=== PATIENT | female | born 2000 | race Caucasian/White ===

== ENCOUNTER → 2025-04-03 | Outpatient (CLI) | payer MEDICAID, SELFPAY ==
[2025-04-03 17:29] LABS: HIV Nonreactive (Nonreactive); Syphilis Antibodies Nonreactive (Nonreactive)
== END | disposition home or self-care (01) ==
PROVIDERS: PCP Nurse Practitioner Family; Visit Provider Nurse Practitioner Family
DX: Z11.3 Encounter for screening for infections with a predominantly sexual mode of transmission (principal); Z01.419 Encounter for gynecological examination (general) (routine) without abnormal findings
CPT/HCPCS: 36415; 86703; 86704; 86705; 86706; 86707; 86780; 86803; 87340; 87350; 88175; G0145

== ENCOUNTER 2025-06-09 17:40 | Observation (INO) | payer MEDICAID, SELFPAY ==
[2025-06-09] VITALS (7 sets, daily range): BP systolic 101–134; BP diastolic 55–81; PULSE 74–98; RESP 16–18; TEMP 36.4–36.6; O2SAT 99–100; BMI 25.2
--- NOTE | 2025-06-09 18:46 | EX.ED.DYSGE1 ---
HPI History of Present Illness Chief Complaint: Substance Abuse Narrative Narrative: Chief complaint and HPI: 25-year-old female with past medical history of polysubstance abuse and intermittent alcohol use presents requesting alcohol detox. Patient states that she lives at [address] and therefore needs to be cleaned from a substance abuse standpoint. She states that she had a buzz ball today and therefore tested positive for alcohol. Patient states that she is not a daily drinker. States she occasionally has a seltzer such as for her recent birthday. She states that she has to go through alcohol detox in order to keep her housing. She denies any nausea, vomiting. States she used to use methamphetamines but has not used it recently. Does admit to marijuana. Review of systems: See HPI Medications: As listed on the chart Allergies: As listed on the chart PFSH: Per chart Vital signs: As listed on the chart. Reviewed. Physical exam: Gen: A&O x3, NAD Head: Normocephalic, atraumatic Eyes: No sclera icterus, conjunctiva clear ENT: Moist mucous membranes CV: RRR, no murmurs Resp: Lungs CTA BL, no w/r/c GI: Abd soft, non-distended, non-tender, no r/r/g Musc: Full ROM, no deformity Skin: Warm, dry Neuro: Alert, oriented, grossly intact, sensation intact Psych: Cooperative, appropriate mood and affect [facility] Medical History (Updated 06/09/25 @ 18:04 by Lexie Felder) Anxiety Home Medications ?Medication ?Instructions ?Recorded ?Last Taken ?Type fluoxetine 10 mg capsule 10 mg PO DAILY 06/09/25 Unknown History hydroxyzine HCl 25 mg tablet 25 mg PO 4X/DAY PRN anxiety 06/09/25 Unknown History Allergy/AdvReac Type Severity Reaction Status Date / Time No Known Allergies Allergy Verified 06/09/25 17:42 Social History Smoking Status: Current every day smoker tobacco type: cigarettes and e-cigarettes EXAM Physical Exam Const Vital Signs: 06/09/25 17:42 06/09/25 18:40 06/09/25 19:00 Temperature 97.5 F L Temperature Source Temporal Pulse Rate 98 84 80 Respiratory Rate 18 16 16 Blood Pressure 134/81 H 132/81 H 115/69 Blood Pressure Mean 98 98 84 Pulse Ox 99 99 100 Oxygen Delivery Method Room Air Room Air 06/09/25 20:00 06/09/25 20:16 Temperature 97.5 F L Temperature Source Pulse Rate 94 94 Respiratory Rate 16 16 Blood Pressure 101/55 L 101/55 L Blood Pressure Mean 70 70 Pulse Ox 100 100 Oxygen Delivery Method Room Air MDM MDM MDM Narrative Medical decision making narrative: 25-year-old female with past medical history of polysubstance abuse and intermittent alcohol use presents requesting alcohol detox. Patient states that she lives at [address] and therefore needs to be cleaned from a substance abuse standpoint. She states that she had a buzz ball today and therefore tested positive for alcohol. States she needs alcohol detox in order to keep her housing. States she is not a daily drinker. Given that patient is not a daily drinker I question the need for alcohol detox. Will perform basic labs with NS bolus. Social work consulted. CBC with leukocytosis of 14.2. Patient has anemia with hemoglobin 11.5. CMP shows mild transaminitis with an AST of 40 and an ALT of 46. Urine negative. Urine drug screen positive for marijuana. Alcohol level unremarkable. Social work evaluated the patient. Social work states that the patient admitted to multiple days of drinking and therefore social work recommends detox. Patient was discussed with the hospitalist service who accepted admission. Impression: 1. Alcohol abuse 2. Requesting alcohol detox 3. History of polysubstance abuse Lab Data Labs: Laboratory Results - last 24 hr 06/09/25 06/09/25 18:10 18:43 WBC 14.2 H RBC 3.68 L Hgb 11.5 L Hct 34.0 L MCV 92.4 MCH 31.3 MCHC 33.8 RDW Std Deviation 39.4 RDW Coeff of Pamela 11.6 Plt Count 317 MPV 8.8 Immature Gran % (Auto) 0.600 Neut % (Auto) 73.2 H Lymph % (Auto) 20.0 Anson % (Auto) 4.7 Eos % (Auto) 1.1 Baso % (Auto) 0.4 Absolute Neuts (auto) 10.4 H Absolute Lymphs (auto) 2.84 Nucleated RBC % 0 Sodium 140 Potassium 3.5 Chloride 104 Carbon Dioxide 23.8 Anion Gap 12 BUN 17 Creatinine 0.83 Estim Creat Clear Calc 85.03 Est GFR (MDRD) Non-Af 99 BUN/Creatinine Ratio 20.0 Glucose 95 Calcium 9.5 Total Bilirubin 0.15 AST 40 H ALT 46 H Alkaline Phosphatase 79 Total Protein 6.7 Albumin 4.3 Globulin 2.4 Albumin/Globulin Ratio 1.8 Urine Test Negative Urine Opiates Screen NEGATIVE U Buprenorphine Qual NEGATIVE Ur Oxycodone Screen NEGATIVE Urine Methadone Screen NEGATIVE Urine Fentanyl Screen NEGATIVE Ur Barbiturates Screen NEGATIVE Ur Phencyclidine Scrn NEGATIVE Ur Amphetamines Screen NEGATIVE U Benzodiazepines Scrn NEGATIVE Urine Cocaine Screen NEGATIVE U Cannabinoids Screen PRESUMPTIVE POSITIVE Ethyl Alcohol < 10.1 Discharge Plan Triage Chief Complaint: Substance Abuse ED Provider: Ki Fontana Dx/Rx/DC Orders Prescriptions: No Action hydroxyzine HCl 25 mg tablet 25 mg PO 4X/DAY PRN (Reason: anxiety) fluoxetine 10 mg capsule 10 mg PO DAILY Primary Care Provider: Myrna Phillips Referrals: Myrna Phillips, [employer] [facility] [Primary Care Provider, Family Practice] Print Language: Pashto
[2025-06-09] MEDS: 0.9% Normal Saline (1000mL) 1,000 ML 1000 ML IV (18:48)
--- OUTSIDE RECORDS SUMMARY | 2025-06-09 18:53 | XMS RPT_ITS | CCD ---
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 screening test designed to aid in the detection of premalignant and malignant conditions of the uterine cervix. It is not a diagnostic procedure and should not be used as the sole means of detecting cervical cancer. Both false-positive and false-negative reports do occur. Performed By: #### L 3410.9992, L7400.0353 #### [facility] [address] [place], [place], [id number] PERFORM Comment Normal . [facility] Comment on above: Order Comment: Speci men Comment: [id number] Specimen Comment: Source.............Cervix Specimen Comment: LMP / Prev Treat...[id number] Specimen Comment: No. of containers..01 ThinPrep Vial Result Comment: Kirsten Groves, Podiatric Medicine Doctor (ASCP) Performed By: #### L 3410.9992, L7400.0353 #### [facility] [address] [place], [place], [id number] Cervical or vagninal specime n microscopic examination by cytology stain (reported asOrdered By: [facility] Myrna Phillips on 04-03-2025 Cytology report Cyto stain Doc (Cvx/Vag) Comment . [facility] Comment on above: The Pap smear is a s creening test designed to aid in thedetection of premalignant and malignant conditions of theuterine cervix. It is not a diagnostic procedure andshould not be used as the sole means of detecting cervicalcancer. Both false-positive and false-negative reports dooccur. HIVon 04-03-2025 HIV Non-Reactive Normal Nonreactive [facility] Comment on above: Result Comment: Non- Reactive Reactive Repeatedly reactive samples must be confirmed according to CDC recommended confirmatory algorithms. The subresults for either HIVAG or AHIV can be used as an aid in the selection of the confirmation algorithm for reactive samples. Send out specimens with Reactive results to [facility] for confirmation. Order the HIV antibody detection and differentiation: lc#[id number] Performed By: #### L 509.8002, L3890.6006, L3000.0800 #### [facility] [address] [place], [address] Laboratory - CytologyOrdered By: [facility] Myrna Phillips on 04-03-2025 Podiatric Medicine Doctor Cyto stain Nom (Cvx/Vag) [ID] Comment . [facility] Comment on above: Herminio Vail tologist (ASCP) Laboratory - Miscellaneous t estsOrdered By: [facility] Myrnadouglas Phillips on 04-03-2025 Service comment (Unsp spec) [Interp] . . [facility] No Panel InformationOrdered By: [facility] Myrnadouglas Phillips on 04-03-2025 HIV (1&2) Antibody Non-Reactive Nonreactive [facility] Comment on above: Non-ReactiveReactive Repeatedly reactive samples must be confirmed according to CDC recommended confirmatory algorithms. The subresults for either HIVAG or AHIV can be used as an aid in the selection of the confirmation algorithm for reactive samples.Send out specimens with Reactive results to [facility] for confirmation.Order the HIV antibody detection and differentiation: lc#[id number] Pap Smear Specimen Adequacy Comment . [facility] Comment on above: Satisfactory for cecilio luation. Endocervical and/or squamous metaplasticcells (endocervical component) are present. Syphilis Antibodieson 2024 Syphilis Abs Non-Reactive Normal Nonreactive [facility] Comment on above: Performed By: #### L 509.8002, L3890.6006, L3000.0800 #### [facility] [address] [place], [address] ED Nursing Noteon 01-27-2025 ED Nursing Note Pt states she wants to leave, Tobin XIAO notified. Pt refused vitals. [facility] ED Provider Noteon ED Provider Note I did not participat e in care of this patient Hunter Gallardo APRN - KENYETTA 01/28/25 0629 [facility] CNPNon 12-12-2023 CNPN Telephone (WIQ) CHIARAARIANNATAMIE ([id number]) 2000 F Date Time Provider Department 12/12/23 PERNELL HOSKINS During your visit today, we recorded the following information about you: Pernell Hoskins, [facility] ED 12/12/2023 8:24 AM Signed Smoking Cessation Navigation Outcome of contact: Left Message Comments: A voicemail has been left for this patient regarding Tobacco Cessation support options. If this patient has any further questions they can email us at [email or web address] or call us at [phone]. [employer] Congressional Representative/Smoking Cessation Navigator: [facility] Allergies As of Date: 12/12/2023 (No Known Allergies) Date Reviewed: 12/07/2023 Reviewed by: Radha Palmer LPN - Fully Assessed Reason for Visit: Smoking Cessation [1387] Prescriptions as of 12/12/2023 - nicotine (NICODERM CQ) 7 mg/24 hr Apply 1 Patch as directed every 24 hours. - ibuprofen (MOTRIN) 600 mg tablet Take 1 tablet by mouth every 6 hours as needed for pain for up to 25 days. - Norethindrone, Contraceptive, (MELBA) 0.35 mg tablet Take 1 tablet by mouth once daily. - Blood Pressure Monitor 1 Each twice daily. - ferrous sulfate 325 mg (65 mg iron) tablet Take 1 tablet by mouth once daily. - omega 6-wmd-mcm-fish oil (FISH OIL) 100-160-1,000 mg cap Take by mouth. - vit,calc76/iron/folic (PNV 29-1 ORAL) Take 1 tablet by mouth once daily. Problem List As Of Date 12/12/2023 Noted Resolved Tobacco use disorder [F17.200] 01/05/2023 Maternal gonorrhea in third trimester [O98.213] 01/05/2023 01/16/2023 Intravenous drug use during in third *01/05/2023 GBS carrier [Z22.330] 01/05/2023 01/16/2023 Encounter for induction of labor [Z34.90] 01/14/2023 01/15/2023 with care elsewhere [Z34.90] 01/14/2023 01/16/2023 Routine follow-up [Z39.2] 01/16/2023 hemorrhage [O72.1] 01/16/2023 Substance use [F19.90] 01/16/2023 01/17/2023 Gestational hypertension, antepartum [O13.9] 01/17/2023 Hypertension complicating , delivered-*01/17/2023 01/18/2023 Encounter Status:Closed by PERNELL HOSKINS on 12/12/23 [facility] ANES PRE-OPon 01-14-2023 ANES PRE-OP HNO ID: [id number] Author: Avery Cisse APRN.UNLOADER Service: Anesthesiology Author Type: Nurse Watch Repair Person Type: Anesthesia Preprocedure Evaluation Filed: 01/14/2023 11:46 AM Note Text: OB ANESTHESIA PRE-PROCEDURE ASSESSMENT PATIENT NAME: Tamie Negron : 2000 [facility] ANES DEVELOPMENT MECHANIC: Previous OB anesthetic: None No OB anesthesia considerations No prior risk factors reported No current obstetric problems/important considerations GERD: GERD well controlled with no positional symptoms Relevant Problems No relevant active problems I - PHYSICAL EVALUATION AIRWAY Patient intubated: No. Tracheostomy tube not present Mallampati: unable to assess. TM distance: >3 FB. Neck ROM: full ROM without neurological symptoms. Mouth opening: adequate. Short neck: no. Thick neck: no II - ANESTHESIA PLAN ASA Score: 3; emergent. Anesthetic Plan: general Airway type: ETT Beta [place] Monitoring Plan Monitoring plan: standard ASA. Post Procedure Analgesic Plan Postoperative analgesic plan: parenteral or oral opioids. Informed Consent Anesthetic risks, benefits, alternatives, personnel and consent discussed: yes. Patient / Responsible Republican agrees to proceed: yes Patient / Surrogate agrees to blood products: unable to give consent Potential Anesthesia issues that may suggest increased risk of complications or contraindication to planned procedure: none. EPIC CHART REVIEW: ACTIVE PROBLEM LIST Tobacco Use Disorder Maternal Gonorrhea in Third Trimester Intravenous Drug Use During in Third Trimester Gbs Carrier Encounter for Induction of Labor With Care Elsewhere PAST MEDICAL HISTORY Diagnosis Date - Drug abuse and dependence (HCC) PAST SURGICAL HISTORY Procedure Laterality Date - NONE FAMILY HISTORY Problem Relation Age of Onset - Alcohol/Drug Mother - Alcohol/Drug Father Social History Tobacco Use - Smoking status: Every Day Packs/day: 0.50 Types: Cigarettes - Smokeless tobacco: Never Vaping Use - Vaping Use: Never used Substance Use Topics - Alcohol use: No - Drug use: Yes Types: Marijuana, Amphetamines Comment: daily josee omega 0-mst-fux-fish oil (FISH OIL) 100-160-1,000 mg cap, Take by mouth., Disp: , Rfl: , 01/13/2023 vit,calc76/iron/folic (PNV 29-1 ORAL), Take 1 tablet by mouth once daily., Disp: , Rfl: , 01/13/2023 docosahexaenoic acid/epa (FISH OIL ORAL), Take 1 tablet by mouth once daily., Disp: , Rfl: Clindamycin Phosphate (CLEOCIN T) 1 % lotion, Apply to face in the morning and up to twice a day. Also can be used on back and neck. (Patient not taking: Reported on 01/05/2023), Disp: 60 mL, Rfl: 2 DIFFERIN 0.1 % gel, apply a pea-sized amount to acne-prone areas on face every other night as tolerated (Patient not taking: Reported on 01/05/2023), Disp: 45 g, Rfl: 2 Benzoyl Peroxide 5 % external wash, apply in the shower 2-3 times weekly to acne-prone areas, can be used daily (Patient not taking: Reported on 01/05/2023), Disp: 148 mL, Rfl: 2 triamcinolone acetonide (KENALOG) 0.1 % cream, Twice a day for two weeks, then once a day for one week, then 1-2 times per week as needed on rash areas (Patient not taking: No sig reported), Disp: 80 g, Rfl: 0 acetaminophen (TYLENOL) 500 mg tablet, Take 1-2 tablets by mouth every 8 hours as needed for Pain. (Patient not taking: No sig reported), Disp: 50 tablet, Rfl: 0 Inpatient medications reviewed in EPIC I have interviewed and examined the patient. I have reviewed the medical record and/or the pre-anesthesia evaluation, pertinent labs, and test results. This contains updated information obtained within 48 hours of Surgery/Procedure. SIGNATURE: Avery Cisse APRN.CRNA PATIENT NAME: Tamie Negron DATE: January 14, 2023 TIME: 11:44 AM : 2000 Normal [facility] CBC panel Auto (Bld)on 01-14 Erythrocyte distribution width (RBC) [Ratio] 13.3 % Normal 11.5-15.0 [facility] Comment on above: Order Comment: Speci nisreen Type: BLOOD SPECIMEN Ordering Facility: [facility] Address: [address] [place] [address] Performed By: #### 5 8410-2 #### [facility] CLIA [id number] [address] [place] [address] [place] Hematocrit (Bld) [Volume fraction] 28.7 % Low 36.0-46.0 [facility] Comment on above: Order Comment: Speci men Type: BLOOD SPECIMEN Ordering Facility: [facility] Address: [address] [place] [address] Performed By: #### 5 8410-2 #### [facility] CLIA [id number] [address] [place] Hemoglobin (Bld) [Mass/Vol] 9.4 g/dL Low 11.5-15.5 [facility] Comment on above: Order Comment: Speci men Type: BLOOD SPECIMEN Ordering Facility: [facility] Address: [address] [place] [address] Performed By: #### 5 8410-2 #### [facility] CLIA [id number] [address] [place] MCH (RBC) [Entitic mass] 30.4 pg Normal 26.0-34.0 [facility] Comment on above: Order Comment: Speci men Type: BLOOD SPECIMEN Ordering Facility: [facility] Address: [address] [place] [address] Performed By: #### 5 8410-2 #### [facility] CLIA [id number] [address] MCHC (RBC) [Mass/Vol] 32.8 g/dL Normal 30.5-36.0 [facility] Comment on above: Order Comment: Speci men Type: BLOOD SPECIMEN Ordering Facility: [facility] Address: [address] [place] [address] Performed By: #### 5 8410-2 #### [facility] CLIA [id number] [address] MCV (RBC) [Entitic vol] 92.9 fL Normal 80.0-100.0 [facility] Comment on above: Order Comment: Speci men Type: BLOOD SPECIMEN Ordering Facility: [facility] Address: [address] [place] [address] Performed By: #### 5 8410-2 #### [facility] CLIA [id number] [address] Nucleated RBC (Bld) [#/Vol] 10*3/uL Normal <0.01 [facility] Comment on above: Order Comment: Speci men Type: BLOOD SPECIMEN Ordering Facility: [facility] Address: [address] [place] [address] Performed By: #### 5 8410-2 #### [facility] CLIA [id number] [address] Platelet mean volume (Bld) [Entitic vol] 10.4 fL Normal 9.0-12.7 [facility] Comment on above: Order Comment: Speci men Type: BLOOD SPECIMEN Ordering Facility: [facility] Address: [address] [place] [address] Performed By: #### 5 8410-2 #### [facility] CLIA [id number] [address] [place] Platelets (Bld) [#/Vol] 283 10*3/uL Normal 150-400 [facility] Comment on above: Order Comment: Speci men Type: BLOOD SPECIMEN Ordering Facility: [facility] Address: [address] [address] Performed By: #### 5 8410-2 #### [facility] CLIA [id number] [address] RBC (Bld) [#/Vol] 3.09 10*6/uL Low 3.90-5.20 [facility] Comment on above: Order Comment: Speci men Type: BLOOD SPECIMEN Ordering Facility: [facility] Address: [address] [address] Performed By: #### 5 8410-2 #### [facility] CLIA [id number] [address] WBC (Bld) [#/Vol] 12.02 10*3/uL High 3.70-11.00 [facility] Comment on above: Order Comment: Speci men Type: BLOOD SPECIMEN Ordering Facility: [facility] Address: [address] [place] [address] Performed By: #### 5 8410-2 #### [facility] CLIA [id number] [address] Erythrocyte distribution width (RBC) [Ratio] 13.4 % Normal 11.5-15.0 [facility] Comment on above: Order Comment: Speci men Type: BLOOD SPECIMEN Ordering Facility: [facility] Address: [address] [place] [address] Performed By: #### 5 8410-2 #### [facility] CLIA [id number] [address] Hematocrit (Bld) [Volume fraction] 31.4 % Low 36.0-46.0 [facility] Comment on above: Order Comment: Speci men Type: BLOOD SPECIMEN Ordering Facility: [facility] Address: [address] [place] [address] Performed By: #### 5 8410-2 #### [facility] CLIA [id number] [address] Hemoglobin (Bld) [Mass/Vol] 10.1 g/dL Low 11.5-15.5 [facility] Comment on above: Order Comment: Speci men Type: BLOOD SPECIMEN Ordering Facility: [facility] Address: [address] [place] [address] Performed By: #### 5 8410-2 #### [facility] CLIA [id number] [address] MCH (RBC) [Entitic mass] 29.3 pg Normal 26.0-34.0 [facility] Comment on above: Order Comment: Speci men Type: BLOOD SPECIMEN Ordering Facility: [facility] Address: [address] [place] [address] Performed By: #### 5 8410-2 #### [facility] CLIA [id number] [address] MCHC (RBC) [Mass/Vol] 32.2 g/dL Normal 30.5-36.0 [facility] Comment on above: Order Comment: Speci men Type: BLOOD SPECIMEN Ordering Facility: [facility] Address: [address] [place] [address] Performed By: #### 5 8410-2 #### [facility] CLIA [id number] [address] MCV (RBC) [Entitic vol] 91.0 fL Normal 80.0-100.0 [facility] Comment on above: Order Comment: Speci men Type: BLOOD SPECIMEN Ordering Facility: [facility] Address: [address] [place] [address] Performed By: #### 5 8410-2 #### [facility] CLIA [id number] [address] Nucleated RBC (Bld) [#/Vol] 10*3/uL Normal <0.01 [facility] Comment on above: Order Comment: Speci men Type: BLOOD SPECIMEN Ordering Facility: [facility] Address: [address] [place] [address] Performed By: #### 5 8410-2 #### [facility] CLIA [id number] [address] Platelet mean volume (Bld) [Entitic vol] 10.9 fL Normal 9.0-12.7 [facility] Comment on above: Order Comment: Speci men Type: BLOOD SPECIMEN Ordering Facility: [facility] Address: [address] [place] [address] Performed By: #### 5 8410-2 #### [facility] CLIA [id number] [address] [place] Platelets (Bld) [#/Vol] 144 10*3/uL Low 150-400 [facility] Comment on above: Order Comment: Speci men Type: BLOOD SPECIMEN Ordering Facility: [facility] Address: [address] [place] [address] Performed By: #### 5 8410-2 #### [facility] CLIA [id number] [address] RBC (Bld) [#/Vol] 3.45 10*6/uL Low 3.90-5.20 [facility] Comment on above: Order Comment: Speci men Type: BLOOD SPECIMEN Ordering Facility: [facility] Address: [address] [place] [address] Performed By: #### 5 8410-2 #### [facility] CLIA [id number] [address] WBC (Bld) [#/Vol] 9.50 10*3/uL Normal 3.70-11.00 [facility] Comment on above: Order Comment: Speci men Type: BLOOD SPECIMEN Ordering Facility: [facility] Address: [address] [place] [address] Performed By: #### 5 8410-2 #### [facility] CLIA [id number] [address] CONFIRM BLOOD TYPEon 023 ABO O Normal [facility] Comment on above: Order Comment: Speci men Type: BLOOD SPECIMENOrdering Facility: [facility] Address: [address] [place] [address] Performed By: #### C ONABO ####[facility] [id number] [address] Rh Nom (Bld) Positive Normal [facility] Comment on above: Order Comment: Speci men Type: BLOOD SPECIMENOrdering Facility: [facility] Address[address] [place] [address] Performed By: #### C ONABO ####[facility] [id number] [address] Fibrinogen PPP-mCncon 2022 Fibrinogen Coag (PPP) [Mass/Vol] 305 mg/dL Normal 200-400 [facility] Comment on above: Order Comment: Speci men Type: BLOOD SPECIMEN Ordering Facility: [facility] Address: [address] [place] [address] Performed By: #### 3 255-7 #### [facility] CLIA [id number] [address] HISTORY PHYSICALon HISTORY PHYSICAL HNO ID: [id number] Author: Paula Adler MD Service: Obstetrics Author Type: Resident Type: HANDP Filed: 01/14/2023 10:28 AM Note Text: Attestation signed by Vero Camcaho MD at 01/14/2023 8:47 PM Attending Note I personally saw and examined the patient. I reviewed the resident's note. I agree with the resident's assessment and plan unless otherwise noted. Signature: Vero Camacho MD Date: 01/14/2023 Time: 8:47 PM OBSTETRICS HISTORY AND PHYSICAL SERVICE DATE: January 14, 2023 SERVICE TIME: 10:24 AM Subjective Patient's stated reason for arrival: EIOL CHIEF COMPLAINT: Induction of Labor HISTORY OF THE PRESENT ILLNESS: The patient is a 22 year old female, , who is at 39w2d with an PAVAN of 01/19/2023, Alternate PAVAN Entry dating method. Patient is here for elective induction. Good movement. Denies vaginal bleeding., Denies contractions., Denies leaking of fluid. Patient denies MRSA, HSV, HIV, Hep B/C. Patient denies EtOH use in . Endorses tobacco use -4 cigarettes per day. Endorses THC and Methamphetamine use, last used 01/07. Patient is currently in rehab at [facility]. POST DELIVERY CONTRACEPTION: Discussed post-delivery contraception options. Patient does not desire post-delivery contraception. HISTORY REVIEW PAST MEDICAL HISTORY Diagnosis Date Drug abuse and dependence (HCC) PAST SURGICAL HISTORY Procedure Laterality Date NONE FAMILY HISTORY Problem Relation Age of Onset Alcohol/Drug Mother Alcohol/Drug Father Social History Tobacco Use Smoking status: Every Day Packs/day: 0.50 Types: Cigarettes Smokeless tobacco: Never Vaping Use Vaping Use: Never used Substance Use Topics Alcohol use: No Drug use: Yes Types: Marijuana, Amphetamines Comment: daily [facility] Obstetric History T0 L0 SAB0 IAB0 Ectopic0 Multiple0 Live Births0 Name of Baby 1: Not recorded Date: 08/21/17 [place]: Not recorded Delivery: Not recorded Apgar1: Not recorded Apgar5: Not recorded Living: Not recorded Name of Baby 2: Not recorded Date: 10/19/20 [place]: Not recorded Delivery: Not recorded Apgar1: Not recorded Apgar5: Not recorded Living: Not recorded Name of Baby 3: Not recorded Date: 10/19/21 [place]: Not recorded Delivery: Not recorded Apgar1: Not recorded Apgar5: Not recorded Living: Not recorded Name of Baby 4: Not recorded Date: Not recorded [place]: Not recorded Delivery: Not recorded Apgar1: Not recorded Apgar5: Not recorded Living: Not recorded Active Non-Hospital Problems Diagnosis Date Noted GBS carrier 01/05/2023 Overview Note: - GBS positive, penicillin while in labor ALLERGIES No Known Allergies Prior to Admission Medications Prescriptions Last Dose Informant Patient Reported? Taking? Benzoyl Peroxide 5 % external wash No No Sig: apply in the shower 2-3 times weekly to acne-prone areas, can be used daily Patient not taking: Reported on 01/05/2023 Clindamycin Phosphate (CLEOCIN T) 1 % lotion No No Sig: Apply to face in the morning and up to twice a day. Also can be used on back and neck. Patient not taking: Reported on 01/05/2023 DIFFERIN 0.1 % gel No No Sig: apply a pea-sized amount to acne-prone areas on face every other night as tolerated Patient not taking: Reported on 01/05/2023 acetaminophen (TYLENOL) 500 mg tablet No No Sig: Take 1-2 tablets by mouth every 8 hours as needed for Pain. Patient not taking: No sig reported docosahexaenoic acid/epa (FISH OIL ORAL) Yes No Sig: Take 1 tablet by mouth once daily. omega 7-std-tzg-fish oil (FISH OIL) 100-160-1,000 mg cap 01/13/2023 Yes Yes Sig: Take by mouth. vit,calc76/iron/folic (PNV 29-1 ORAL) 01/13/2023 Yes Yes Sig: Take 1 tablet by mouth once daily. triamcinolone acetonide (KENALOG) 0.1 % cream No No Sig: Twice a day for two weeks, then once a day for one week, then 1-2 times per week as needed on rash areas Patient not taking: No sig reported Facility-Administered Medications: None REVIEW OF SYSTEMS: The remainder of the review of systems is negative. Objective LAST VITALS: Pulse BP Resp O2 Sat Temp Pain 83 136/77 96 % 36.1 ?C (97 ?F) 0 HT/WT/BMI: Height Weight BMI 154.9 cm (5' 0.98) 71.7 kg (158 lb) 29.87 PHYSICAL EXAM: General: WD, WN, NAD, comfortable HEENT: NC/AT, sclera white Lungs: normal respiratory effort Heart: RR Abdomen: soft, nontender, gravid Uterus: soft, NT Extremities: tr edema FHT: 135 bpm (01/14/23 0930 : Mikki Carbone RN) bpm CERVICAL EXAM: Dilation: 3 (01/14/23 1019 : Paula Adler MD) cm Station: -2 (01/14/23 1019 : Paula Adler MD) Effacement: 60 (01/14/23 1019 : Paula Adler MD) % Position: cephalic Presentation: vertex Pelvimetry: Pelvimetry clinically assessed as adequate MONITORING/ASSESSMENT: (more content not included)... Normal [facility] OPERATIVE NOon 01-14-2023 OPERATIVE NO HNO ID: [id number] Author: Alla Rascon DO Service: Obstetrics Author Type: Resident Type: Operative Report Filed: 01/14/2023 12:57 PM Note Text: Attestation signed by Vero Camacho MD at 01/14/2023 8:47 PM Attestation: I was present for the critical and cobian portions of the surgery and I was immediately available to provide assistance. Tamie Negron had category I FHTs until a sudden onset bradycardia. bradycardia was first noted at 1109. Intrauterine resuscitation was attempted however was not successful and the patient was moved to the OR at 1115. FHTs were confirmed to be in the 80s at 1118 and the decision was made to proceed with emergent delivery. Anesthesia performed RSI. Incision was made at 1123, delivery was at 1124. A large retroplacental clot was noted at the time of delivery, consistent with an abruption. The uterus was initially atonic but improved with pitocin and IM hemabate. Vero Camacho MD OB OPERATIVE REPORT LOG ID: [id number] Surgery/Procedure Date: 01/14/2023 Incision/Procedure Start Time: 11:23 AM Incision Close/Procedure End Time: 12:11 PM Surgeon(s)/Procedurali st(s) and Pad Extractor Tender(s): Surgeon(s) and Role: * Vero Camacho MD - Primary * Niecy Gee MD - Resident - Assisting * Alla Rascon DO - Resident - Assisting No Additional Staff Informed Consent: Informed Consent obtained and on the chart Procedure: Section Gestational Age at Delivery: 39w2d Reason for Delivery Today: PRIMARY Reason for Delivery : Elective Induction Additional Clinical Indicator(s) for delivery: N/A Delivery type: , Low Transverse Intrapartum Complications: Persistent Category 2/3 Tracing Delivery between 24 - 34 weeks?: No Indications for : Category 3 Tracing Category 3 Tracing Indications: Bradycardia Additional Pre-Op Details (if applicable): Tamie is a 22 year now who presented at 39w1d for elective induction of labor. Her had been complicated by methamphetamine,THC, and tobacco use, and gonorrhea s/p treatment. Her induction was commenced with Pitocin, however within a few minutes of the start of her induction there was a bradycardia that did not resolve with intervention. The decision was therefore made (decision time at 1118) with emergent primary low transverse section (see previous note from Dr. Adler with details). Postop Diagnosis: Same as pre-op diagnosis, category III FHR, suspected placental abruption Procedures and Anesthesia: Procedure(s) and Anesthesia Type: * SECTION Information for the patient's : Jimmy Negron [[id number]] Type: , Low Transverse Operative Findings: Weight: 3.365 kg (7 lb 6.7 oz) (Filed from Delivery Summary) Sex: male One Minute : 6 Five Minute : 7 Cord Complications: None Additional Findings: Normal uterus, Normal tubes, Normal ovaries, and placental blood clot consistent with abruption TECHNIQUE: The patient was taken to the operating room where general anesthesia was induced and found to be adequate. She was placed in supine position with a left tilt. Brothers catheter was placed under sterile conditions. She was splash prepped with betadine and draped in the usual sterile fashion for abdominal surgery. Pfannensteil incision was made with the scalpel. Incision was taken down to the fascia with the scalpel, and the fascia was incised in the midline. Incision was extended laterally bluntly. Rectus muscles were divided in the midline. Peritoneum was entered bluntly and incision was extended superiorly and inferiorly. The bladder blade was then introduced. Hysterotomy was performed in a low transverse fashion with the scalpel. The incision was extended manually in a superolateral fashion. was delivered from a from a cephalic position atraumatically. The cord was clamped and cut immediately, and the male infant was handed off to awaiting staff. Cord blood was collected. A sample of the cord was collected to obtain the pH. Placenta then delivered spontaneously with fundal massage. Visual inspection of the placenta revealed a large collection of dark red blood that was partially clotted within the membranes, consistent with placental abruption. The uterus was then exteriorized and cleared of clots and debris. The bladder blade was reintroduced. Uterine atony was noted at this time. Intravenous pitocin was running, and uterine massage was begun with some improvement in tone. A single dose of intrauterine Hemabate was given with excellent improvement in uterine tone. The uterus was closed in Two Layers. The first layer was a running locked stitched of 0-Vicryl. The second layer was in imb (more content not included)... Normal [facility] TYPE + SCREEN PRENATALon ABO O Normal [facility] Comment on above: Order Comment: Speci men Type: BLOOD SPECIMENOrdering Facility: [facility] Address: [address] [address] Performed By: #### T SPN ####[facility] BLOOD BANKCLIA [id number] [address] STATES OF [facility] HISTORICAL AB SCR STATUS Negative Normal [facility] Comment on above: Order Comment: Speci men Type: BLOOD SPECIMENOrdering Facility: [facility] Address: [address] [address] Performed By: #### T SPN ####[facility] BLOOD BANKCLIA [id number] [place] [address] [facility] Rh Nom (Bld) Positive Normal [facility] Comment on above: Order Comment: Speci men Type: BLOOD SPECIMENOrdering Facility: [facility] Address: [address] [place] [address] Performed By: #### T SPN ####[facility] BLOOD BANKCLIA [id number] [address] [id number] [facility] TYPE AND SCREEN EXPIRATION 01/17/2023 23:59 Normal [facility] Comment on above: Order Comment: Speci men Type: BLOOD SPECIMENOrdering Facility: [facility] Address: [address] [place] [address] Performed By: #### T SPN ####[facility]LOOD [facility] [id number] [address] [id number] [facility] BIOPHYSICAL PROFILE US WHIon 01-11-2023 [facility] CNPNon 12-30-2022 CNPN Telephone (OBGWMA) TAMIE NEGRON ([id number]) 2000 F Date Time Provider Department 12/30/22 OLI CONTRERAS During your visit today, we recorded the following information about you: Verna Aranda 12/30/2022 11:30 AM Signed Patient is 37 weeks looking to transfer. All records has been entered. Patient has also had a couple of tox screens done. Oli Contreras DO 12/30/2022 3:10 PM Signed Ok, Sounds good. Thanks! Oli Contreras DO' Allergies As of Date: 12/30/2022 (No Known Allergies) Date Reviewed: 11/04/2020 Reviewed by: Tere (Dorcas) Isabelle Martines - Fully Assessed Reason for Visit: Care [86] Cmt: Transfer of care Prescriptions as of 12/30/2022 - Clindamycin Phosphate (CLEOCIN T) 1 % lotion Apply to face in the morning and up to twice a day. Also can be used on back and neck. - DIFFERIN 0.1 % gel apply a pea-sized amount to acne-prone areas on face every other night as tolerated - Benzoyl Peroxide 5 % external wash apply in the shower 2-3 times weekly to acne-prone areas, can be used daily - triamcinolone acetonide (KENALOG) 0.1 % cream Twice a day for two weeks, then once a day for one week, then 1-2 times per week as needed on rash areas - acetaminophen (TYLENOL) 500 mg tablet Take 1-2 tablets by mouth every 8 hours as needed for Pain. Problem List As Of Date: 12/30/2022 (None) Encounter Status:Closed by VERNA ARANDA on 12/30/22 Normal [facility] AMPHETAMINE CONFIRM,URINEon 12-27-2022 AMPHETAMINES 787 ng/mL Normal [facility] Comment on above: Result Comment: Cons istent with use of a drug containing amphetamine. May also reflect metabolism of methamphetamine, when methamphetamine is present. Amphetamine and methamphetamine exist in d- and l-isomeric forms. These forms are not distinguished by this test. Isomeric separation is available separately for an additional charge. INTERPRETIVE INFORMATION: Amphetamines, Urine, Quantitative Methodology: Quantitative Liquid Chromatography-Tandem Mass Spectrometry Positive cutoff: 200 ng/mL unless specified below: Amphetamine 50 ng/mL For medical purposes only; not valid for forensic use. The absence of expected drug(s) and/or drug metabolite(s) may indicate non-compliance, inappropriate timing of specimen collection relative to drug administration, poor drug absorption, diluted/adulterated urine, or limitations of testing. The concentration value must be greater than or equal to the cutoff to be reported as positive. Interpretive questions should be directed to the laboratory. This test was developed and its performance characteristics determined by [facility]. It has not been cleared or approved by the [place] Food and Drug Administration. This test was performed in a CLIA certified laboratory and is intended for clinical purposes. Performed By: #### H [facility] #### [address] [address] MDA <200 Normal [facility] Comment on above: Performed By: #### H [facility]QU #### [address] [address] MDEA <200 Normal [facility] Comment on above: Performed By: #### H CGQU #### [address] [address] MDMA <200 Normal [facility] Comment on above: Performed By: #### H CGQU #### [address] [address] METHAMPHETAMINE 1798 ng/mL Normal [facility] Comment on above: Result Comment: Cons istent with use of a drug containing methamphetamine. Methamphetamine is metabolized to amphetamine. Amphetamine and methamphetamine exist in d- and l-isomeric forms. These forms are not distinguished by this test. Isomeric separation is available separately for an additional charge. Performed By: #### H [facility] #### [address] [address] PHENTERMINE <200 Normal [facility] Comment on above: Result Comment: Perf ormed By: [facility] [address] [place] [id number] [employer]: Arnulfo Connell MD, PhD Performed By: #### H [facility] #### [address] [address] CANNABINOID CONFIRM.URINEon 12-26-2022 44-IWX-3-CARBOXY-THC 88 ng/mL Normal [facility] Comment on above: Result Comment: INTE RPRETIVE INFORMATION: THC Metabolite, Urine, Quantitative Methodology: Quantitative Liquid Chromatography-Tandem Mass Spectrometry Positive cutoff: 15 ng/mL For medical purposes only; not valid for forensic use. The drug analyte detected in this assay, 9-carboxy THC, is a metabolite of ntvqs-5-rpfoioamvadkefglemnc (THC). Detection of 9-carboxy THC suggests use of, or exposure to, a product containing THC. This test cannot distinguish between prescribed or non-prescribed forms of THC, nor can it distinguish between active or passive use. The 9-carboxy THC metabolite can be detected in urine for several weeks. Normalization of results to creatinine concentration can help document elimination or suggest recent use, when specimens are collected at least one week apart. This test was developed and its performance characteristics determined by [facility]. It has not been cleared or approved by the US Food and Drug Administration. This test was performed in a CLIA certified laboratory and is intended for clinical purposes. Performed By: [facility] [address] [place] [id number] [employer]: Arnulfo Connell MD, PhD Performed By: #### H [facility] #### [place] [address] DRUG SCREEN,URINE WITH REFLE X TO CONFIRMATIONon 12-23-2022 AMPHETAMINE SCREEN,U Positive Abnormal NEGATIVE [facility] Comment on above: Result Comment: CUTO FF LEVEL: 500 NG/ML Cross-reactivity has been reported with high concentrations of the following drugs: buproprion, chloroquine, chlorpromazine, ephedrine, mephentermine, fenfluramine, phentermine, phenylpropanolamine, pseudoephedrine, and propranolol. Performed By: #### H CGQU #### [place] [address] BARBITURATES SCREEN,U Negative Normal NEGATIVE [facility] Comment on above: Result Comment: CUTO FF LEVEL: 200 NG/ML Performed By: #### H CGQU #### [place] [address] BENZODIAZEPINES SCREEN,U Negative Normal NEGATIVE [facility] Comment on above: Result Comment: CUTO FF LEVEL: 200 NG/ML Performed By: #### H CGQU #### [place] [address] CANNABINOIDS SCREEN,U Positive Abnormal NEGATIVE [facility] Comment on above: Result Comment: CUTO FF LEVEL: 50 NG/ML Performed By: #### H CGQU #### [place] [address] COCAINE METABOLITE SCREEN,U Negative Normal NEGATIVE [facility] Comment on above: Result Comment: CUTO FF LEVEL: 150 NG/ML Performed By: #### H CGQU #### [place] [address] DRUG SCREEN COMMENT SEE BELOW Normal [facility] Comment on above: Result Comment: Drug screen results are presumptive and should not be used to assess compliance with prescribed medication. Definitive confirmatory drug testing has been added to this sample for any positive screen result and will be reported separately. . Toxicology screening results are reported qualitatively. The concentration must be greater than or equal to the cutoff to be reported as positive. The concentration at which the screening test can detect an individual drug or metabolite varies. The absence of expected drug(s) and/or drug metabolite(s) may indicate non-compliance, inappropriate timing of specimen collection relative to drug administration, poor drug absorption, diluted/adulterated urine, or limitations of testing. For medical purposes only; not valid for forensic use. . Interpretive questions should be directed to the laboratory medical directors. Performed By: #### H CG[facility] #### [place] [address] FENTANYL SCREEN,URINE Negative Normal NEGATIVE [facility] Comment on above: Result Comment: CUTO FF LEVEL: 5 NG/ML Performed By: #### H CGQU #### [place] [address] METHADONE SCREEN,U Negative Normal NEGATIVE [facility] [place] Comment on above: Result Comment: CUTO FF LEVEL: 150 NG/ML The metabolite J-ovlke-bxkejgmghywovz (LAAM) is not detected by this method in concentrations that would be found in the urine of patients on LAAM therapy. Performed By: #### H CGQU #### [place] [address] OPIATES SCREEN,U Negative Normal NEGATIVE [facility] Comment on above: Result Comment: CUTO FF LEVEL: 300 NG/ML The opiate screen does not detect fentanyl, meperidine, or tramadol. Oxycodone is not consistently detected (refer to Oxycodone Screen, Urine result). Performed By: #### H CGQU #### [place] [address] OXYCODONE SCREEN,U Negative Normal NEGATIVE [facility] [place] Comment on above: Result Comment: CUTO FF LEVEL: 100 NG/ML This test will accurately detect both oxycodone and oxymorphone. Performed By: #### H CGQU #### [facility] [address] [place] [address] PCP SCREEN,U Negative Normal NEGATIVE [facility] Comment on above: Result Comment: CUTO FF LEVEL: 25 NG/ML Cross-reactivity has been reported with dextromethorphan. Performed By: #### H CGQU #### [facility] [address] [place] [address] GROUP B STREP SCREENon 12-22 GROUP B STREP SCREEN PATIENT: TAMIE NEGRON LOCATION: [facility] BILL#: [id number] : [birth year] AGE: SEX: F ORDERED BY: TAYE SANDRA SOURCE: VAG-RECTAL COLLECTED: 12/22/22 10:33 ANTIBIOTICS AT SUNG.: RECEIVED : 12/23/22 03:13 SITE: R E S U L T S GROUP B STREP SCREEN FINAL 12/25/22 11:33 ISOLATE1 : Group B streptococcus ISOLATED Normal [facility] Comment on above: Performed By: #### H CGQU #### [address] [address] Laboratory - Drug toxicology on 12-22-2022 Amphetamine (U) [Mass/Vol] 787 ng/mL [facility] [employer] Work Phone: Comment on above: Consistent with use of a drug containing amphetamine. May also reflect metabolism of methamphetamine, when methamphetamine is present. Amphetamine and methamphetamine exist in d- and l-isomeric forms. These forms are not distinguished by this test. Isomeric separation is available separately for an additional charge.INTERPRETIVE INFORMATION: Amphetamines, Urine, QuantitativeMethodology: Quantitative Liquid Chromatography-Tandem Mass SpectrometryPositive cutoff: 200 ng/mL unless specified below:Amphetamine 50 ng/mLFor medical purposes only; not valid for forensic use. The absence of expected drug(s) and/or drug metabolite(s) may indicate non-compliance, inappropriate timing of specimen collection relative to drug administration, poor drug absorption, diluted/adulterated urine, or limitations of testing. The concentration value must be greater than or equal to the cutoff to be reported as positive. Interpretive questions should be directed to the laboratory.This test was developed and its performance characteristics determined by [facility]. It has not been cleared or approved by the US Food and Drug Administration. This test was performed in a CLIA certified laboratory and is intended for clinical purposes. Amphetamines Screen Ql (U) Positive Abnormal NEGATIVE [facility] [employer] Work Phone: Comment on above: CUTOFF LEVEL: 500 NG /ML Cross-reactivity has been reported with high concentrations of the following drugs: buproprion, chloroquine, chlorpromazine, ephedrine, mephentermine, fenfluramine, phentermine, phenylpropanolamine, pseudoephedrine, and propranolol. Barbiturates Screen Ql (U) Negative NEGATIVE [facility] [employer] Work Phone: Comment on above: CUTOFF LEVEL: 200 NG /ML Benzodiazepines Ql (U) Negative NEGATIVE [facility] Work Phone: Comment on above: CUTOFF LEVEL: 200 NG /ML Benzoylecgonine Screen Ql (U) Negative NEGATIVE [facility] [employer] Work Phone: Comment on above: CUTOFF LEVEL: 150 NG /ML Cannabinoids Screen Ql (U) Positive Abnormal NEGATIVE [facility] [employer] Work Phone: Comment on above: CUTOFF LEVEL: 50 NG/ ML Carboxy tetrahydrocannabinol (U) [Mass/Vol] 88 ng/mL [facility] Work Phone: Comment on above: INTERPRETIVE INFORMA TION: THC Metabolite, Urine, QuantitativeMethodology: Quantitative Liquid Chromatography-Tandem Mass SpectrometryPositive cutoff: 15 ng/mLFor medical purposes only; not valid for forensic use.The drug analyte detected in this assay, 9-carboxy THC, is a metabolite of odjuk-7-xjkagonlkqesovdzucvb (THC). Detection of 9-carboxy THC suggests use of, or exposure to, a product containing THC. This test cannot distinguish between prescribed or non-prescribed forms of THC, nor can it distinguish between active or passive use. The 9-carboxy THC metabolite can be detected in urine for several weeks. Normalization of results to creatinine concentration can help document elimination or suggest recent use, when specimens are collected at least one week apart.This test was developed and its performance characteristics determined by [facility]. It has not been cleared or approved by the US Food and Drug Administration. This test was performed in a CLIA certified laboratory and is intended for clinical purposes.Performed By: [facility] [place] [id number] Director: Arnulfo Connell MD, PhD Methadone Screen Ql (U) Negative NEGATIVE [facility] Work Phone: Comment on above: CUTOFF LEVEL: 150 NG /ML The metabolite O-yorbp-esowolbtjwtuzg (LAAM) is not detected by this method in concentrations that would be found in the urine of patients on LAAM therapy. Methamphetamine (U) [Mass/Vol] 1798 ng/mL [facility] Work Phone: Comment on above: Consistent with use of a drug containing methamphetamine. Methamphetamine is metabolized to amphetamine. Amphetamine and methamphetamine exist in d- and l-isomeric forms. These forms are not distinguished by this test. Isomeric separation is available separately for an additional charge. Methylenedioxyamphetam ine (U) [Mass/Vol] <200 [facility] Work Phone: Methylenedioxyethylamp hetamine (U) [Mass/Vol] <200 [facility] Work Phone: Methylenedioxymethamph etamine (U) [Mass/Vol] <200 [facility] Work Phone: Opiates Screen Ql (U) Negative NEGATIVE [facility] Work Phone: Comment on above: CUTOFF LEVEL: 300 NG /ML The opiate screen does not detect fentanyl, meperidine, or tramadol. Oxycodone is not consistently detected (refer to Oxycodone Screen, Urine result). oxyCODONE+oxyMORphone Screen Ql (U) Negative NEGATIVE [facility] Work Phone: Comment on above: CUTOFF LEVEL: 100 NG /ML This test will accurately detect both oxycodone and oxymorphone. Phencyclidine Ql (U) Negative NEGATIVE [facility] Work Phone: Comment on above: CUTOFF LEVEL: 25 NG/ ML Cross-reactivity has been reported with dextromethorphan. Phentermine Confirm (U) [Mass/Vol] <200 [facility] Work Phone: Comment on above: Performed By: TOM Frausto ectwlzapjox[address] [place] [id number] Director: Arnulfo Connell MD, PhD Laboratory - Microbiology an d Antimicrobial susceptibilityon 12-22-2022 Bacteria identified Aer cx Nom (Genital specimen) Abnormal [facility] [employer] Phone: No Panel Informationon 12-22 Negative NEGATIVE [facility] [employer] Phone: Comment on above: CUTOFF LEVEL: 5 NG/M L SEE BELOW [facility] [employer] Phone: Comment on above: Drug screen results are presumptive and should not be used to assess compliance with prescribed medication. Definitive confirmatory drug testing has been added to this sample for any positive screen result and will be reported separately. .Toxicology screening results are reported qualitatively. The concentration must be greater than or equal to the cutoff to be reported as positive. The concentration at which the screening test can detect an individual drug or metabolite varies. The absence of expected drug(s) and/or drug metabolite(s) may indicate non-compliance, inappropriate timing of specimen collection relative to drug administration, poor drug absorption, diluted/adulterated urine, or limitations of testing. For medical purposes only; not valid for forensic use. .Interpretive questions should be directed to the laboratory medical directors. No Panel Informationon 12-21 Normal [facility] Work Phone: AMPHETAMINE CONFIRM,URINEon 12-13-2022 AMPHETAMINES 598 ng/mL Normal [facility] Comment on above: Result Comment: Cons istent with use of a drug containing amphetamine. May also reflect metabolism of methamphetamine, when methamphetamine is present. Amphetamine and methamphetamine exist in d- and l-isomeric forms. These forms are not distinguished by this test. Isomeric separation is available separately for an additional charge. INTERPRETIVE INFORMATION: Amphetamines, Urine, Quantitative Methodology: Quantitative Liquid Chromatography-Tandem Mass Spectrometry Positive cutoff: 200 ng/mL unless specified below: Amphetamine 50 ng/mL For medical purposes only; not valid for forensic use. The absence of expected drug(s) and/or drug metabolite(s) may indicate non-compliance, inappropriate timing of specimen collection relative to drug administration, poor drug absorption, diluted/adulterated urine, or limitations of testing. The concentration value must be greater than or equal to the cutoff to be reported as positive. Interpretive questions should be directed to the laboratory. This test was developed and its performance characteristics determined by [facility]. It has not been cleared or approved by the US Food and Drug Administration. This test was performed in a CLIA certified laboratory and is intended for clinical purposes. Performed By: #### A [facility] #### [address] [address] MDA <200 Normal [facility] Comment on above: Performed By: #### A [facility] #### [facility] [address] [place] [address], [place] [address] MDEA <200 Normal [facility] Comment on above: Performed By: #### A [facility] #### [facility] [address] [place] [address], [place] [address] MDMA <200 Normal [facility] Comment on above: Performed By: #### A [facility] #### [facility] [address] [place] [address], [place] [address] METHAMPHETAMINE 2391 ng/mL Normal [facility] Comment on above: Result Comment: Cons istent with use of a drug containing methamphetamine. Methamphetamine is metabolized to amphetamine. Amphetamine and methamphetamine exist in d- and l-isomeric forms. These forms are not distinguished by this test. Isomeric separation is available separately for an additional charge. Performed By: #### A MPC1 #### [address] [place] [address] PHENTERMINE <200 Normal [facility] Comment on above: Result Comment: Perf ormed By: [facility] [address] [place] [address] [employer] T[employer] Sales: Arnulfo Connell MD, PhD Performed By: #### A MPC1 #### [employer] [address] [address] CANNABINOID CONFIRM.URINEon 12-13-2022 80-LCM-3-CARBOXY-THC 89 ng/mL Normal [facility] Comment on above: Result Comment: INTE RPRETIVE INFORMATION: THC Metabolite, Urine, Quantitative Methodology: Quantitative Liquid Chromatography-Tandem Mass Spectrometry Positive cutoff: 15 ng/mL For medical purposes only; not valid for forensic use. The drug analyte detected in this assay, 9-carboxy THC, is a metabolite of sdrjt-0-vowgrpdtvrrwrpeenalp (THC). Detection of 9-carboxy THC suggests use of, or exposure to, a product containing THC. This test cannot distinguish between prescribed or non-prescribed forms of THC, nor can it distinguish between active or passive use. The 9-carboxy THC metabolite can be detected in urine for several weeks. Normalization of results to creatinine concentration can help document elimination or suggest recent use, when specimens are collected at least one week apart. This test was developed and its performance characteristics determined by [facility]. It has not been cleared or approved by the US Food and Drug Administration. This test was performed in a CLIA certified laboratory and is intended for clinical purposes. Performed By: [facility] [address] [place] [id number] [employer] Sales: Arnulfo Connell MD, PhD Performed By: #### Raul ANCN #### [facility] [address] [place] [address] DRUG SCREEN,URINE WITH REFLE X TO CONFIRMATIONon 12-09-2022 AMPHETAMINE SCREEN,U Positive Abnormal NEGATIVE [facility] Comment on above: Result Comment: CUTO FF LEVEL: 500 NG/ML Cross-reactivity has been reported with high concentrations of the following drugs: buproprion, chloroquine, chlorpromazine, ephedrine, mephentermine, fenfluramine, phentermine, phenylpropanolamine, pseudoephedrine, and propranolol. Performed By: #### D RUGR #### [facility] [address] [place] [address] BARBITURATES SCREEN,U Negative Normal NEGATIVE [facility] Comment on above: Result Comment: CUTO FF LEVEL: 200 NG/ML Performed By: #### D RUGR #### [facility] [address] [place] [address] BENZODIAZEPINES SCREEN,U Negative Normal NEGATIVE [facility] Comment on above: Result Comment: CUTO FF LEVEL: 200 NG/ML Performed By: #### D RUGR #### [facility] [address] [place] [address] CANNABINOIDS SCREEN,U Positive Abnormal NEGATIVE [facility] Comment on above: Result Comment: CUTO FF LEVEL: 50 NG/ML Performed By: #### D RUGR #### [facility] [address] [place] [address] COCAINE METABOLITE SCREEN,U Negative Normal NEGATIVE [facility] Comment on above: Result Comment: CUTO FF LEVEL: 150 NG/ML Performed By: #### D RUGR #### [facility] [address] [place] [address] DRUG SCREEN COMMENT SEE BELOW Normal [facility] Comment on above: Result Comment: Drug screen results are presumptive and should not be used to assess compliance with prescribed medication. Definitive confirmatory drug testing has been added to this sample for any positive screen result and will be reported separately. . Toxicology screening results are reported qualitatively. The concentration must be greater than or equal to the cutoff to be reported as positive. The concentration at which the screening test can detect an individual drug or metabolite varies. The absence of expected drug(s) and/or drug metabolite(s) may indicate non-compliance, inappropriate timing of specimen collection relative to drug administration, poor drug absorption, diluted/adulterated urine, or limitations of testing. For medical purposes only; not valid for forensic use. . Interpretive questions should be directed to the laboratory medical directors. Performed By: #### D RUGR #### [facility] [address] [place] [address] FENTANYL SCREEN,URINE Negative Normal NEGATIVE [facility] Comment on above: Result Comment: CUTO FF LEVEL: 5 NG/ML Performed By: #### D RUGR #### [facility] [place] [address] METHADONE SCREEN,U Negative Normal NEGATIVE [facility] [place] Comment on above: Result Comment: CUTO FF LEVEL: 150 NG/ML The metabolite X-yfdwr-zamkcvsocysird (LAAM) is not detected by this method in concentrations that would be found in the urine of patients on LAAM therapy. Performed By: #### D RUGR #### [facility] [address] [place] [id number] OPIATES SCREEN,U Negative Normal NEGATIVE [facility] Comment on above: Result Comment: CUTO FF LEVEL: 300 NG/ML The opiate screen does not detect fentanyl, meperidine, or tramadol. Oxycodone is not consistently detected (refer to Oxycodone Screen, Urine result). Performed By: #### D RUGR #### [facility] [address] [place] [id number] OXYCODONE SCREEN,U Negative Normal NEGATIVE [facility] [place] Comment on above: Result Comment: CUTO FF LEVEL: 100 NG/ML This test will accurately detect both oxycodone and oxymorphone. Performed By: #### D RUGR #### [facility] [address] [place] [id number] PCP SCREEN,U Negative Normal NEGATIVE [facility] Comment on above: Result Comment: CUTO FF LEVEL: 25 NG/ML Cross-reactivity has been reported with dextromethorphan. Performed By: #### D RUGR #### [facility] [address] [place] [id number] Laboratory - Drug toxicology on 12-08-2022 Amphetamine (U) [Mass/Vol] 598 ng/mL [facility] Work Phone: Comment on above: Consistent with use of a drug containing amphetamine. May also reflect metabolism of methamphetamine, when methamphetamine is present. Amphetamine and methamphetamine exist in d- and l-isomeric forms. These forms are not distinguished by this test. Isomeric separation is available separately for an additional charge.INTERPRETIVE INFORMATION: Amphetamines, Urine, QuantitativeMethodology: Quantitative Liquid Chromatography-Tandem Mass SpectrometryPositive cutoff: 200 ng/mL unless specified below:Amphetamine 50 ng/mLFor medical purposes only; not valid for forensic use. The absence of expected drug(s) and/or drug metabolite(s) may indicate non-compliance, inappropriate timing of specimen collection relative to drug administration, poor drug absorption, diluted/adulterated urine, or limitations of testing. The concentration value must be greater than or equal to the cutoff to be reported as positive. Interpretive questions should be directed to the laboratory.This test was developed and its performance characteristics determined by [facility]. It has not been cleared or approved by the US Food and Drug Administration. This test was performed in a CLIA certified laboratory and is intended for clinical purposes. Amphetamines Screen Ql (U) Positive Abnormal NEGATIVE [facility] [employer] Phone: Comment on above: CUTOFF LEVEL: 500 NG /ML Cross-reactivity has been reported with high concentrations of the following drugs: buproprion, chloroquine, chlorpromazine, ephedrine, mephentermine, fenfluramine, phentermine, phenylpropanolamine, pseudoephedrine, and propranolol. Barbiturates Screen Ql (U) Negative NEGATIVE [facility] [employer] Phone: Comment on above: CUTOFF LEVEL: 200 NG /ML Benzodiazepines Ql (U) Negative NEGATIVE [facility] [employer] Work Phone: Comment on above: CUTOFF LEVEL: 200 NG /ML Benzoylecgonine Screen Ql (U) Negative NEGATIVE [facility] [employer] Phone: Comment on above: CUTOFF LEVEL: 150 NG /ML Cannabinoids Screen Ql (U) Positive Abnormal NEGATIVE [facility] [employer] Phone: Comment on above: CUTOFF LEVEL: 50 NG/ ML Carboxy tetrahydrocannabinol (U) [Mass/Vol] 89 ng/mL [facility] [employer] Work Phone: Comment on above: INTERPRETIVE INFORMA TION: THC Metabolite, Urine, QuantitativeMethodology: Quantitative Liquid Chromatography-Tandem Mass SpectrometryPositive cutoff: 15 ng/mLFor medical purposes only; not valid for forensic use.The drug analyte detected in this assay, 9-carboxy THC, is a metabolite of stxoz-8-kulozipnrxnpfyszfkxw (THC). Detection of 9-carboxy THC suggests use of, or exposure to, a product containing THC. This test cannot distinguish between prescribed or non-prescribed forms of THC, nor can it distinguish between active or passive use. The 9-carboxy THC metabolite can be detected in urine for several weeks. Normalization of results to creatinine concentration can help document elimination or suggest recent use, when specimens are collected at least one week apart.This test was developed and its performance characteristics determined by [facility]. It has not been cleared or approved by the US Food and Drug Administration. This test was performed in a CLIA certified laboratory and is intended for clinical purposes.Performed By: [facility] [place] [id number] Director: Arnulfo Connell MD, PhD Methadone Screen Ql (U) Negative NEGATIVE [facility] Work Phone: Comment on above: CUTOFF LEVEL: 150 NG /ML The metabolite D-mitad-ixowwbqxgddwpx (LAAM) is not detected by this method in concentrations that would be found in the urine of patients on LAAM therapy. Methamphetamine (U) [Mass/Vol] 2391 ng/mL [facility] Work Phone: Comment on above: Consistent with use of a drug containing methamphetamine. Methamphetamine is metabolized to amphetamine. Amphetamine and methamphetamine exist in d- and l-isomeric forms. These forms are not distinguished by this test. Isomeric separation is available separately for an additional charge. Methylenedioxyamphetam ine (U) [Mass/Vol] <200 [facility] Work Phone: Methylenedioxyethylamp hetamine (U) [Mass/Vol] <200 [facility] Work Phone: Methylenedioxymethamph etamine (U) [Mass/Vol] <200 [facility] Work Phone: Opiates Screen Ql (U) Negative NEGATIVE [facility] Work Phone: Comment on above: CUTOFF LEVEL: 300 NG /ML The opiate screen does not detect fentanyl, meperidine, or tramadol. Oxycodone is not consistently detected (refer to Oxycodone Screen, Urine result). oxyCODONE+oxyMORphone Screen Ql (U) Negative NEGATIVE [facility] Work Phone: Comment on above: CUTOFF LEVEL: 100 NG /ML This test will accurately detect both oxycodone and oxymorphone. Phencyclidine Ql (U) Negative NEGATIVE [facility] Work Phone: Comment on above: CUTOFF LEVEL: 25 NG/ ML Cross-reactivity has been reported with dextromethorphan. Phentermine Confirm (U) [Mass/Vol] <200 [facility] Work Phone: Comment on above: Performed By: TOM Frausto [id number] [place] [id number] Director: Arnulfo Connell MD, PhD No Panel Informationon 12-08 Negative NEGATIVE [facility] Work Phone: Comment on above: CUTOFF LEVEL: 5 NG/M L SEE BELOW [facility] Work Phone: Comment on above: Drug screen results are presumptive and should not be used to assess compliance with prescribed medication. Definitive confirmatory drug testing has been added to this sample for any positive screen result and will be reported separately. .Toxicology screening results are reported qualitatively. The concentration must be greater than or equal to the cutoff to be reported as positive. The concentration at which the screening test can detect an individual drug or metabolite varies. The absence of expected drug(s) and/or drug metabolite(s) may indicate non-compliance, inappropriate timing of specimen collection relative to drug administration, poor drug absorption, diluted/adulterated urine, or limitations of testing. For medical purposes only; not valid for forensic use. .Interpretive questions should be directed to the laboratory medical directors. Pr Internship Noteon 12-08 Pr Internship Note Current Meds Fish Oil 1000 MG Oral Capsule; Therapy: 15Sep2022 to Recorded Multi +DHA 27-0.8-250 MG Oral Capsule; TAKE 1 CAPSULE Daily After Meals; Therapy: 15Sep2022 to (Evaluate:10Sep2023) Requested for: 15Sep2022; Last Rx:15Sep2022 Ordered Allergies No Known Drug Allergies Progress Note 12/08/22 RISE SW was able to leave a voicemail for the pt to return her phone call. SW left phone number to call back. Niecy Watkins [employer] TECHNICIAN MANAGEMENT SCIENTIST. Signatures Electronically signed by : ALEX Philippe; Dec 08 2022 3:56PM EST (Author) Normal [facility] AMPHETAMINE CONFIRM,URINEon 11-07-2022 AMPHETAMINES 86 ng/mL Normal [facility] Comment on above: Result Comment: Cons istent with use of a drug containing amphetamine. May also reflect metabolism of methamphetamine, when methamphetamine is present. Amphetamine and methamphetamine exist in d- and l-isomeric forms. These forms are not distinguished by this test. Isomeric separation is available separately for an additional charge. INTERPRETIVE INFORMATION: Amphetamines, Urine, Quantitative Methodology: Quantitative Liquid Chromatography-Tandem Mass Spectrometry Positive cutoff: 200 ng/mL unless specified below: Amphetamine 50 ng/mL For medical purposes only; not valid for forensic use. The absence of expected drug(s) and/or drug metabolite(s) may indicate non-compliance, inappropriate timing of specimen collection relative to drug administration, poor drug absorption, diluted/adulterated urine, or limitations of testing. The concentration value must be greater than or equal to the cutoff to be reported as positive. Interpretive questions should be directed to the laboratory. This test was developed and its performance characteristics determined by [facility]. It has not been cleared or approved by the US Food and Drug Administration. This test was performed in a CLIA certified laboratory and is intended for clinical purposes. Performed By: #### T +S #### [facility] [address] [place] [address] MDA <200 Normal [facility] Comment on above: Performed By: #### T +S #### [facility] [address] [place] [address] MDEA <200 Normal [facility] Comment on above: Performed By: #### T +S #### [facility] [address] [place] [address] MDMA <200 Normal [facility] Comment on above: Performed By: #### T +S #### [facility] [address] [place] [address] METHAMPHETAMINE 590 ng/mL Normal [facility] Comment on above: Result Comment: Cons istent with use of a drug containing methamphetamine. Methamphetamine is metabolized to amphetamine. Amphetamine and methamphetamine exist in d- and l-isomeric forms. These forms are not distinguished by this test. Isomeric separation is available separately for an additional charge. Performed By: #### T +S #### [facility] [address] [place] [address] PHENTERMINE <200 Normal [facility] Comment on above: Result Comment: Perf ormed By: [facility] [address] [place] [address] [employer]: Arnulfo Connell MD, PhD Performed By: #### T +S #### [facility] [address] [place] [address] CANNABINOID CONFIRM.URINEon 11-07-2022 32-IWX-5-CARBOXY-THC 56 ng/mL Normal [facility] Comment on above: Result Comment: INTE RPRETIVE INFORMATION: THC Metabolite, Urine, Quantitative Methodology: Quantitative Liquid Chromatography-Tandem Mass Spectrometry Positive cutoff: 15 ng/mL For medical purposes only; not valid for forensic use. The drug analyte detected in this assay, 9-carboxy THC, is a metabolite of imcnb-0-aryhbrnnnkdyjogfzzyg (THC). Detection of 9-carboxy THC suggests use of, or exposure to, a product containing THC. This test cannot distinguish between prescribed or non-prescribed forms of THC, nor can it distinguish between active or passive use. The 9-carboxy THC metabolite can be detected in urine for several weeks. Normalization of results to creatinine concentration can help document elimination or suggest recent use, when specimens are collected at least one week apart. This test was developed and its performance characteristics determined by [facility]. It has not been cleared or approved by the US Food and Drug Administration. This test was performed in a CLIA certified laboratory and is intended for clinical purposes. Performed By: [facility] [address] [place] [address] [employer]: Arnulfo Connell MD, PhD Performed By: #### C ANCN #### [address] [address] DRUG SCREEN,URINE WITH REFLE X TO CONFIRMATIONon 11-04-2022 AMPHETAMINE SCREEN,U Positive Abnormal NEGATIVE [facility] Comment on above: Result Comment: CUTO FF LEVEL: 500 NG/ML Cross-reactivity has been reported with high concentrations of the following drugs: buproprion, chloroquine, chlorpromazine, ephedrine, mephentermine, fenfluramine, phentermine, phenylpropanolamine, pseudoephedrine, and propranolol. Performed By: #### H CGQU #### [facility] [address] [place] [address] BARBITURATES SCREEN,U Negative Normal NEGATIVE [facility] Comment on above: Result Comment: CUTO FF LEVEL: 200 NG/ML Performed By: #### H CGQU #### [facility] [address] [place] [address], [place] [address] BENZODIAZEPINES SCREEN,U Negative Normal NEGATIVE [facility] Comment on above: Result Comment: CUTO FF LEVEL: 200 NG/ML Performed By: #### H CGQU #### [address] [address] CANNABINOIDS SCREEN,U Positive Abnormal NEGATIVE [facility] Comment on above: Result Comment: CUTO FF LEVEL: 50 NG/ML Performed By: #### H CGQU #### [facility] [address] [place] [address] COCAINE METABOLITE SCREEN,U Negative Normal NEGATIVE [facility] Comment on above: Result Comment: CUTO FF LEVEL: 150 NG/ML Performed By: #### H CGQU #### [address] [address] DRUG SCREEN COMMENT SEE BELOW Normal [facility] Comment on above: Result Comment: Drug screen results are presumptive and should not be used to assess compliance with prescribed medication. Definitive confirmatory drug testing has been added to this sample for any positive screen result and will be reported separately. . Toxicology screening results are reported qualitatively. The concentration must be greater than or equal to the cutoff to be reported as positive. The concentration at which the screening test can detect an individual drug or metabolite varies. The absence of expected drug(s) and/or drug metabolite(s) may indicate non-compliance, inappropriate timing of specimen collection relative to drug administration, poor drug absorption, diluted/adulterated urine, or limitations of testing. For medical purposes only; not valid for forensic use. . Interpretive questions should be directed to the laboratory medical directors. Performed By: #### H CGQU #### [place] [address] FENTANYL SCREEN,URINE Negative Normal NEGATIVE [facility] Comment on above: Result Comment: CUTO FF LEVEL: 5 NG/ML Performed By: #### H CGQU #### [place] [address] METHADONE SCREEN,U Negative Normal NEGATIVE [facility] [place] Comment on above: Result Comment: CUTO FF LEVEL: 150 NG/ML The metabolite C-toryu-zygpeiyfvqlviv (LAAM) is not detected by this method in concentrations that would be found in the urine of patients on LAAM therapy. Performed By: #### H CGQU #### [place] [address] OPIATES SCREEN,U Negative Normal NEGATIVE [facility] Comment on above: Result Comment: CUTO FF LEVEL: 300 NG/ML The opiate screen does not detect fentanyl, meperidine, or tramadol. Oxycodone is not consistently detected (refer to Oxycodone Screen, Urine result). Performed By: #### H CGQU #### [place] [address] OXYCODONE SCREEN,U Negative Normal NEGATIVE [facility] [place] Comment on above: Result Comment: CUTO FF LEVEL: 100 NG/ML This test will accurately detect both oxycodone and oxymorphone. Performed By: #### H CGQU #### [place] [address] PCP SCREEN,U Negative Normal NEGATIVE [facility] Comment on above: Result Comment: CUTO FF LEVEL: 25 NG/ML Cross-reactivity has been reported with dextromethorphan. Performed By: #### H CGQU #### [place] [address] GC + CHLAMYDIA BY AMPLIFIED DETECTIONon 11-04-2022 CHLAMYDIA TRACH.,AMPLIFIED Negative Normal Negative [facility] Comment on above: Result Comment: The APTIMA Combo 2 assay is FDA-approved for Chlamydia trachomatis and Neisseria gonorrhoeae testing on female endocervical and vaginal swabs, ThinPrep liquid pap samples, male urine samples and urethral swabs. Performance characteristics for Chlamydia trachomatis and Neisseria gonorrhoeae testing on specific ohk-DMI-hjxksakh sample types (female urine samples) have been validated by [facility]. This laboratory is certified by CLIA to perform high complexity testing. Samples from all other sites are not validated for this method. Performed By: #### H CGQU #### [address] [address] N.GONORRHEA,AMPLIFIED Negative Normal Negative [facility] Comment on above: Result Comment: The APTIMA Combo 2 assay is FDA-approved for Chlamydia trachomatis and Neisseria gonorrhoeae testing on female endocervical and vaginal swabs, ThinPrep liquid pap samples, male urine samples and urethral swabs. Performance characteristics for Chlamydia trachomatis and Neisseria gonorrhoeae testing on specific ehb-LGW-jlkrphdu sample types (female urine samples) have been validated by [facility]. This laboratory is certified by CLIA to perform high complexity testing. Samples from all other sites are not validated for this method. Performed By: #### H CGQU #### [address] [address] GC + CHLAMYDIA BY AMPLIFIED DETECTIONon 11-03-2022 Lab Specimen Source Urine Normal [facility] Comment on above: Performed By: #### H CGQU #### [address] [address] GC + Chlamydia By Amplified Detectionon 11-03-2022 C. trachomatis rRNA ROHIT+probe Ql (Unsp spec) Negative Negative [facility] Work Phone: Comment on above: The APTIMA Combo 2 a ssay is FDA-approved for Chlamydia trachomatis and Neisseria gonorrhoeae testing on female endocervical and vaginal swabs, ThinPrep liquid pap samples, male urine samples and urethral swabs. Performance characteristics for Chlamydia trachomatis and Neisseria gonorrhoeae testing on specific lmt-ECI-ydhykzmj sample types (female urine samples) have been validated by [facility]. This laboratory is certified by CLIA to perform high complexity testing. Samples from all other sites are not validated for this method. N. gonorrhoeae rRNA ROHIT+probe Ql (Unsp spec) Negative Negative [facility] Work Phone: Comment on above: SOURCE: Urine The AP JESSICA Combo 2 assay is FDA-approved for Chlamydia trachomatis and Neisseria gonorrhoeae testing on female endocervical and vaginal swabs, ThinPrep liquid pap samples, male urine samples and urethral swabs. Performance characteristics for Chlamydia trachomatis and Neisseria gonorrhoeae testing on specific pcf-FHY-fxiicgfb sample types (female urine samples) have been validated by [facility]. This laboratory is certified by CLIA to perform high complexity testing. Samples from all other sites are not validated for this method. Laboratory - Drug toxicology on 11-03-2022 Amphetamine (U) [Mass/Vol] 86 ng/mL [facility] Work Phone: Comment on above: Consistent with use of a drug containing amphetamine. May also reflect metabolism of methamphetamine, when methamphetamine is present. Amphetamine and methamphetamine exist in d- and l-isomeric forms. These forms are not distinguished by this test. Isomeric separation is available separately for an additional charge.INTERPRETIVE INFORMATION: Amphetamines, Urine, QuantitativeMethodology: Quantitative Liquid Chromatography-Tandem Mass SpectrometryPositive cutoff: 200 ng/mL unless specified below:Amphetamine 50 ng/mLFor medical purposes only; not valid for forensic use. The absence of expected drug(s) and/or drug metabolite(s) may indicate non-compliance, inappropriate timing of specimen collection relative to drug administration, poor drug absorption, diluted/adulterated urine, or limitations of testing. The concentration value must be greater than or equal to the cutoff to be reported as positive. Interpretive questions should be directed to the laboratory.This test was developed and its performance characteristics determined by [facility]. It has not been cleared or approved by the US Food and Drug Administration. This test was performed in a CLIA certified laboratory and is intended for clinical purposes. Amphetamines Screen Ql (U) Positive Abnormal NEGATIVE [facility] Work Phone: Comment on above: CUTOFF LEVEL: 500 NG /ML Cross-reactivity has been reported with high concentrations of the following drugs: buproprion, chloroquine, chlorpromazine, ephedrine, mephentermine, fenfluramine, phentermine, phenylpropanolamine, pseudoephedrine, and propranolol. Barbiturates Screen Ql (U) Negative NEGATIVE [facility] Work Phone: Comment on above: CUTOFF LEVEL: 200 NG /ML Benzodiazepines Ql (U) Negative NEGATIVE [facility] Work Phone: Comment on above: CUTOFF LEVEL: 200 NG /ML Benzoylecgonine Screen Ql (U) Negative NEGATIVE [facility] Work Phone: Comment on above: CUTOFF LEVEL: 150 NG /ML Cannabinoids Screen Ql (U) Positive Abnormal NEGATIVE [facility] [employer] Phone: Comment on above: CUTOFF LEVEL: 50 NG/ ML Carboxy tetrahydrocannabinol (U) [Mass/Vol] 56 ng/mL [facility] Work Phone: Comment on above: INTERPRETIVE INFORMA TION: THC Metabolite, Urine, QuantitativeMethodology: Quantitative Liquid Chromatography-Tandem Mass SpectrometryPositive cutoff: 15 ng/mLFor medical purposes only; not valid for forensic use.The drug analyte detected in this assay, 9-carboxy THC, is a metabolite of eknvy-1-khbqnhdwijoukfmmkiyn (THC). Detection of 9-carboxy THC suggests use of, or exposure to, a product containing THC. This test cannot distinguish between prescribed or non-prescribed forms of THC, nor can it distinguish between active or passive use. The 9-carboxy THC metabolite can be detected in urine for several weeks. Normalization of results to creatinine concentration can help document elimination or suggest recent use, when specimens are collected at least one week apart.This test was developed and its performance characteristics determined by [facility]. It has not been cleared or approved by the US Food and Drug Administration. This test was performed in a CLIA certified laboratory and is intended for clinical purposes.Performed By: [facility] [place] [address] [id number] Director: Arnulfo Connell MD, PhD Methadone Screen Ql (U) Negative NEGATIVE [facility] Work Phone: Comment on above: CUTOFF LEVEL: 150 NG /ML The metabolite B-wanyn-ofnjbbkewaybkr (LAAM) is not detected by this method in concentrations that would be found in the urine of patients on LAAM therapy. Methamphetamine (U) [Mass/Vol] 590 ng/mL [facility] Work Phone: Comment on above: Consistent with use of a drug containing methamphetamine. Methamphetamine is metabolized to amphetamine. Amphetamine and methamphetamine exist in d- and l-isomeric forms. These forms are not distinguished by this test. Isomeric separation is available separately for an additional charge. Methylenedioxyamphetam ine (U) [Mass/Vol] <200 [facility] Work Phone: Methylenedioxyethylamp hetamine (U) [Mass/Vol] <200 [facility] Work Phone: Methylenedioxymethamph etamine (U) [Mass/Vol] <200 [facility] Work Phone: [phone] Opiates Screen Ql (U) Negative NEGATIVE [facility] Work Phone: Comment on above: CUTOFF LEVEL: 300 NG /ML The opiate screen does not detect fentanyl, meperidine, or tramadol. Oxycodone is not consistently detected (refer to Oxycodone Screen, Urine result). oxyCODONE+oxyMORphone Screen Ql (U) Negative NEGATIVE [facility] Work Phone: Comment on above: CUTOFF LEVEL: 100 NG /ML This test will accurately detect both oxycodone and oxymorphone. Phencyclidine Ql (U) Negative NEGATIVE [facility] Work Phone: Comment on above: CUTOFF LEVEL: 25 NG/ ML Cross-reactivity has been reported with dextromethorphan. Phentermine Confirm (U) [Mass/Vol] <200 [facility] Work Phone: Comment on above: Performed By: TOM [address]anson[address] [place] [id number] Director: Arnulfo Connell MD, PhD No Panel Informationon 11-03 Negative NEGATIVE [facility] [employer] Phone: Comment on above: CUTOFF LEVEL: 5 NG/M L SEE BELOW [facility] [employer] Phone: Comment on above: Drug screen results are presumptive and should not be used to assess compliance with prescribed medication. Definitive confirmatory drug testing has been added to this sample for any positive screen result and will be reported separately. .Toxicology screening results are reported qualitatively. The concentration must be greater than or equal to the cutoff to be reported as positive. The concentration at which the screening test can detect an individual drug or metabolite varies. The absence of expected drug(s) and/or drug metabolite(s) may indicate non-compliance, inappropriate timing of specimen collection relative to drug administration, poor drug absorption, diluted/adulterated urine, or limitations of testing. For medical purposes only; not valid for forensic use. .Interpretive questions should be directed to the laboratory medical directors. No Panel Informationon 10-28 Please click on the link to view the study images [facility] Work Phone: AMPHETAMINE CONFIRM,URINEon 09-19-2022 AMPHETAMINES 3968 ng/mL Normal [facility] Comment on above: Result Comment: Cons istent with use of a drug containing amphetamine. May also reflect metabolism of methamphetamine, when methamphetamine is present. Amphetamine and methamphetamine exist in d- and l-isomeric forms. These forms are not distinguished by this test. Isomeric separation is available separately for an additional charge. INTERPRETIVE INFORMATION: Amphetamines, Urine, Quantitative Methodology: Quantitative Liquid Chromatography-Tandem Mass Spectrometry Positive cutoff: 200 ng/mL unless specified below: Amphetamine 50 ng/mL For medical purposes only; not valid for forensic use. The absence of expected drug(s) and/or drug metabolite(s) may indicate non-compliance, inappropriate timing of specimen collection relative to drug administration, poor drug absorption, diluted/adulterated urine, or limitations of testing. The concentration value must be greater than or equal to the cutoff to be reported as positive. Interpretive questions should be directed to the laboratory. This test was developed and its performance characteristics determined by [facility]. It has not been cleared or approved by the US Food and Drug Administration. This test was performed in a CLIA certified laboratory and is intended for clinical purposes. Performed By: #### A MPC1 #### [facility] [address] [place] [address] MDA <200 Normal [facility] Comment on above: Performed By: #### A MPC1 #### [address] [place] [address] MDEA <200 Normal [facility] Comment on above: Performed By: #### A MPC1 #### [address] [place] [address] MDMA <200 Normal [facility] Comment on above: Performed By: #### A MPC1 #### [address] [place] [address] METHAMPHETAMINE >87589 Normal [facility] Comment on above: Result Comment: Cons istent with use of a drug containing methamphetamine. Methamphetamine is metabolized to amphetamine. Amphetamine and methamphetamine exist in d- and l-isomeric forms. These forms are not distinguished by this test. Isomeric separation is available separately for an additional charge. Performed By: #### A MPC1 #### [address] [place] [address] PHENTERMINE <200 Normal [facility] Comment on above: Result Comment: Perf ormed By: [address] [address] [employer]: Arnulfo Connell MD, PhD Performed By: #### A MPC1 #### [address] [address] CANNABINOID CONFIRM.URINEon 09-19-2022 01-SDW-9-CARBOXY-THC 91 ng/mL Normal [facility] Comment on above: Result Comment: INTE RPRETIVE INFORMATION: THC Metabolite, Urine, Quantitative Methodology: Quantitative Liquid Chromatography-Tandem Mass Spectrometry Positive cutoff: 15 ng/mL For medical purposes only; not valid for forensic use. The drug analyte detected in this assay, 9-carboxy THC, is a metabolite of idcjh-6-kxgwoearkfjqpugcyrmj (THC). Detection of 9-carboxy THC suggests use of, or exposure to, a product containing THC. This test cannot distinguish between prescribed or non-prescribed forms of THC, nor can it distinguish between active or passive use. The 9-carboxy THC metabolite can be detected in urine for several weeks. Normalization of results to creatinine concentration can help document elimination or suggest recent use, when specimens are collected at least one week apart. This test was developed and its performance characteristics determined by [facility]. It has not been cleared or approved by the US Food and Drug Administration. This test was performed in a CLIA certified laboratory and is intended for clinical purposes. Performed By: [facility] [address] [place] [address] [employer]: Arnulfo Connell MD, PhD Performed By: #### C ANCN #### [facility] [employer] [address] [place] [address] DRUG SCREEN,URINE WITH REFLE X TO CONFIRMATIONon 09-16-2022 AMPHETAMINE SCREEN,U Positive Abnormal NEGATIVE [facility] Comment on above: Result Comment: CUTO FF LEVEL: 500 NG/ML Cross-reactivity has been reported with high concentrations of the following drugs: buproprion, chloroquine, chlorpromazine, ephedrine, mephentermine, fenfluramine, phentermine, phenylpropanolamine, pseudoephedrine, and propranolol. Performed By: #### T +S #### [facility] [address] [place] [address] BARBITURATES SCREEN,U Negative Normal NEGATIVE [facility] Comment on above: Result Comment: CUTO FF LEVEL: 200 NG/ML Performed By: #### T +S #### [facility] [address] [place] [address] BENZODIAZEPINES SCREEN,U Negative Normal NEGATIVE [facility] Comment on above: Result Comment: CUTO FF LEVEL: 200 NG/ML Performed By: #### T +S #### [facility] [address] [place] [address] CANNABINOIDS SCREEN,U Positive Abnormal NEGATIVE [facility] Comment on above: Result Comment: CUTO FF LEVEL: 50 NG/ML Performed By: #### T +S #### [facility] [address] [place] [address] COCAINE METABOLITE SCREEN,U Negative Normal NEGATIVE [facility] Comment on above: Result Comment: CUTO FF LEVEL: 150 NG/ML Performed By: #### T +S #### [facility] [address] [place] [id number] DRUG SCREEN COMMENT SEE BELOW Normal [facility] Comment on above: Result Comment: Drug screen results are presumptive and should not be used to assess compliance with prescribed medication. Definitive confirmatory drug testing has been added to this sample for any positive screen result and will be reported separately. . Toxicology screening results are reported qualitatively. The concentration must be greater than or equal to the cutoff to be reported as positive. The concentration at which the screening test can detect an individual drug or metabolite varies. The absence of expected drug(s) and/or drug metabolite(s) may indicate non-compliance, inappropriate timing of specimen collection relative to drug administration, poor drug absorption, diluted/adulterated urine, or limitations of testing. For medical purposes only; not valid for forensic use. . Interpretive questions should be directed to the laboratory medical directors. Performed By: #### T +S #### [facility] [address] [place] [address] FENTANYL SCREEN,URINE Negative Normal NEGATIVE [facility] Comment on above: Result Comment: CUTO FF LEVEL: 5 NG/ML Performed By: #### T +S #### [facility] [address] [place] [address] METHADONE SCREEN,U Negative Normal NEGATIVE [facility] [place] Comment on above: Result Comment: CUTO FF LEVEL: 150 NG/ML The metabolite J-oxkgy-xgwpysptndvrqh (LAAM) is not detected by this method in concentrations that would be found in the urine of patients on LAAM therapy. Performed By: #### T +S #### [facility] [address] [place] [address] OPIATES SCREEN,U Negative Normal NEGATIVE [facility] Comment on above: Result Comment: CUTO FF LEVEL: 300 NG/ML The opiate screen does not detect fentanyl, meperidine, or tramadol. Oxycodone is not consistently detected (refer to Oxycodone Screen, Urine result). Performed By: #### T +S #### [facility] [address] [place] [address] OXYCODONE SCREEN,U Negative Normal NEGATIVE [facility] [place] Comment on above: Result Comment: CUTO FF LEVEL: 100 NG/ML This test will accurately detect both oxycodone and oxymorphone. Performed By: #### T +S #### [facility] [address] [place] [address] PCP SCREEN,U Negative Normal NEGATIVE [facility] Comment on above: Result Comment: CUTO FF LEVEL: 25 NG/ML Cross-reactivity has been reported with dextromethorphan. Performed By: #### T +S #### [facility] [address] [place] [address] GC + CHLAMYDIA BY AMPLIFIED DETECTIONon 09-16-2022 CHLAMYDIA TRACH.,AMPLIFIED Negative Normal Negative [facility] Comment on above: Result Comment: The APTIMA Combo 2 assay is FDA-approved for Chlamydia trachomatis and Neisseria gonorrhoeae testing on female endocervical and vaginal swabs, ThinPrep liquid pap samples, male urine samples and urethral swabs. Performance characteristics for Chlamydia trachomatis and Neisseria gonorrhoeae testing on specific chd-GXT-kmqucsbw sample types (female urine samples) have been validated by [facility]. This laboratory is certified by CLIA to perform high complexity testing. Samples from all other sites are not validated for this method. Performed By: #### T +S #### [facility] [address] [place] [address] N.GONORRHEA,AMPLIFIED Positive Abnormal Negative [facility] Comment on above: Result Comment: The APTIMA Combo 2 assay is FDA-approved for Chlamydia trachomatis and Neisseria gonorrhoeae testing on female endocervical and vaginal swabs, ThinPrep liquid pap samples, male urine samples and urethral swabs. Performance characteristics for Chlamydia trachomatis and Neisseria gonorrhoeae testing on specific qef-JAS-jzhwmjqj sample types (female urine samples) have been validated by [facility]. This laboratory is certified by CLIA to perform high complexity testing. Samples from all other sites are not validated for this method. Performed By: #### T +S #### [facility] [address] [place] [address] TRICHOMONAS,NUCLEIC ACID DET ECTIONon 09-16-2022 TRICHOMONAS VAGINALIS Negative Normal Negative [facility] Comment on above: Result Comment: The APTIMA Trichomonas vaginalis assay is FDA-approved for testing on female endocervical swabs, vaginal swabs, and ThinPrep liquid pap samples. Performance characteristics for Trichomonas vaginalis on specific quu-XNQ-dfnnjvds sample types (female and male urine and male urethral swabs) have been validated by [facility]. This laboratory is certified by CLIA to perform high complexity testing. Samples from all other sites are not validated for this method. Performed By: #### H CGQU #### [address] [address] C. trachomatis+N. gonorrhoea e DNA ROHIT+probe Ql (Unsp spec)on 09-15-2022 C. trachomatis DNA ROHIT+probe Ql (Unsp spec) Negative Negative for Chlamydia trachomatis by amplificaton [facility] N. gonorrhoeae DNA ROHIT+probe Ql (Unsp spec) Negative Negative for Neisseria gonorrhoeae by amplification [facility] CBC ANEMIA PANEL WITH REFLEX ,PREGNANCYon 09-15-2022 Erythrocyte distribution width (RBC) [Ratio] 12.7 % Normal 11.5 - 14.5 [facility] Comment on above: Performed By: #### H CGQU #### [address] [address] Hematocrit (Bld) [Volume fraction] 33.9 % Low 36.0 - 46.0 [facility] Comment on above: Performed By: #### H CGQU #### [address] [address] Hemoglobin (Bld) [Mass/Vol] 11.5 g/dL Low 12.0 - 16.0 [facility] Comment on above: Performed By: #### H CGQU #### [address] [address] MCHC (RBC) [Mass/Vol] 33.9 g/dL Normal 32.0 - 36.0 [facility] Comment on above: Performed By: #### H CGQU #### [address] [address] MCV (RBC) [Entitic vol] 93 fL Normal 80 - 100 [facility] Comment on above: Performed By: #### H CGQU #### [address] [address] Platelets (Bld) [#/Vol] 262 10*3/uL Normal 150 - 450 [facility] Comment on above: Performed By: #### H CGQU #### [address] [address] RBC 3.63 x10E12/L Low 4.00 - 5.20 [facility] Comment on above: Performed By: #### H CGQU #### [address] [address] REFLEX ADDED, ANEMIA PANEL NONE Normal [facility] Comment on above: Performed By: #### H CGQU #### [address] [address] WBC (Bld) [#/Vol] 8.1 10*3/uL Normal 4.4 - 11.3 [facility] [place] Comment on above: Performed By: #### H CGQU #### [address] [address] Cult, Urineon 09-15-2022 Bacteria identified Cx Nom (U) [facility] Work Phone: GC + Chlamydia By Amplified Detectionon 09-15-2022 C. trachomatis rRNA ROHIT+probe Ql (Unsp spec) Negative Negative [facility] Work Phone: Comment on above: The APTIMA Combo 2 a ssay is FDA-approved for Chlamydia trachomatis and Neisseria gonorrhoeae testing on female endocervical and vaginal swabs, ThinPrep liquid pap samples, male urine samples and urethral swabs. Performance characteristics for Chlamydia trachomatis and Neisseria gonorrhoeae testing on specific bqq-FKV-iacmesmv sample types (female urine samples) have been validated by [facility]. This laboratory is certified by CLIA to perform high complexity testing. Samples from all other sites are not validated for this method. N. gonorrhoeae rRNA ROHIT+probe Ql (Unsp spec) Positive Abnormal Negative [facility] Work Phone: Comment on above: SOURCE: Thin Prep-En docervical The APTIMA Combo 2 assay is FDA-approved for Chlamydia trachomatis and Neisseria gonorrhoeae testing on female endocervical and vaginal swabs, ThinPrep liquid pap samples, male urine samples and urethral swabs. Performance characteristics for Chlamydia trachomatis and Neisseria gonorrhoeae testing on specific uim-LSN-squvzzib sample types (female urine samples) have been validated by [facility]. This laboratory is certified by CLIA to perform high complexity testing. Samples from all other sites are not validated for this method. HEP B SURF AG SCRNon 023 HBV surface Ag Ql (S) Negative [facility] HEP C AB IA W/CONF SCRNon HCV Ab Ql (S) Negative Negative [facility] HEPATITIS B SURFACE AGon HEP.B SURFACE AG Non-Reactive Normal NONREACTIVE [facility] Comment on above: Result Comment: Biot in interference may cause falsely decreased results. Patients taking a Biotin dose of up to 5 mg/day should refrain from taking Biotin for 24 hours before sample collection. Providers may contact their local laboratory for further information. Performed By: #### H BSAG #### [facility] [address] [place] [id number] HIV 1+2 Ab IA Qlon 3 HIV 1+2 Ab+HIV1 p24 Ag IA Ql Negative [facility] HIV 1/2 ANTIGEN/ANTIBODY SCR EEN WITH REFLEX TO CONFIRMATIONon 09-15-2022 HIV 1/2 AG/AB SCREEN Non-Reactive Normal NONREACTIVE [facility] Comment on above: Result Comment: HIV Ag/Ab screen is performed using the Siemens marker.to HIV Ag/Ab Combo assay which detects the presence of HIV p24 antigen as well as antibodies to HIV-1 (Group M and O) and HIV-2. . No laboratory evidence of HIV infection. If acute HIV infection is suspected, consider testing for HIV RNA by PCR (viral load). Performed By: #### H IV #### [facility] [address] [place] [id number] Lab Specimen Source Normal [facility] Comment on above: Performed By: #### H IV #### [facility] [address] [place] [address] Performed By: #### H BSAG #### [facility] [address] [place] [address] HIV 1+2 Ab Qn (S) Non-Reactive See Below [facility] Work Phone: Comment on above: SOURCE: Reference Ra nge: NONREACTIVE HIV Ag/Ab screen is performed using the Siemens [employer] HIV Ag/Ab Combo assay which detects the presence of HIV p24 antigen as well as antibodies to HIV-1 (Group M and O) and HIV-2..No laboratory evidence of HIV infection. If acute HIV infection is suspected, consider testing for HIV RNA by PCR (viral load). Hepatitis B Surface Antigeno n 09-15-2022 Hepatitis B Surface Antigen Non-Reactive See Below [facility] Work Phone: Comment on above: SOURCE: Reference Ra nge: NONREACTIVE Biotin interference may cause falsely decreased results. Patients taking a Biotin dose of up to 5 mg/day should refrain from taking Biotin for 24 hours before sample collection. Providers may contact their local laboratory for further information. Laboratory - Blood bankon ABO group Nom (Bld) O [facility] Work Phone: Blood group antibody screen Ql Negative [facility] Work Phone: Rh immune globulin screen (Bld) [Interp] Positive [facility] Work Phone: Laboratory - Cytologyon 08-22 Cytology report Cyto stain.thin prep Doc (Cvx/Vag) [facility] Work Phone: Laboratory - Drug toxicology on 09-15-2022 Amphetamine (U) [Mass/Vol] 3968 ng/mL [facility] Work Phone: Comment on above: Consistent with use of a drug containing amphetamine. May also reflect metabolism of methamphetamine, when methamphetamine is present. Amphetamine and methamphetamine exist in d- and l-isomeric forms. These forms are not distinguished by this test. Isomeric separation is available separately for an additional charge.INTERPRETIVE INFORMATION: Amphetamines, Urine, QuantitativeMethodology: Quantitative Liquid Chromatography-Tandem Mass SpectrometryPositive cutoff: 200 ng/mL unless specified below:Amphetamine 50 ng/mLFor medical purposes only; not valid for forensic use. The absence of expected drug(s) and/or drug metabolite(s) may indicate non-compliance, inappropriate timing of specimen collection relative to drug administration, poor drug absorption, diluted/adulterated urine, or limitations of testing. The concentration value must be greater than or equal to the cutoff to be reported as positive. Interpretive questions should be directed to the laboratory.This test was developed and its performance characteristics determined by [facility]. It has not been cleared or approved by the US Food and Drug Administration. This test was performed in a CLIA certified laboratory and is intended for clinical purposes. Amphetamines Screen Ql (U) Positive Abnormal NEGATIVE [facility] [employer] [employer] Phone: Comment on above: CUTOFF LEVEL: 500 NG /ML Cross-reactivity has been reported with high concentrations of the following drugs: buproprion, chloroquine, chlorpromazine, ephedrine, mephentermine, fenfluramine, phentermine, phenylpropanolamine, pseudoephedrine, and propranolol. Barbiturates Screen Ql (U) Negative NEGATIVE [facility] [employer] Phone: Comment on above: CUTOFF LEVEL: 200 NG /ML Benzodiazepines Ql (U) Negative NEGATIVE [facility] Work Phone: Comment on above: CUTOFF LEVEL: 200 NG /ML Benzoylecgonine Screen Ql (U) Negative NEGATIVE [facility] Work Phone: Comment on above: CUTOFF LEVEL: 150 NG /ML Cannabinoids Screen Ql (U) Positive Abnormal NEGATIVE [facility] Work Phone: Comment on above: CUTOFF LEVEL: 50 NG/ ML Carboxy tetrahydrocannabinol (U) [Mass/Vol] 91 ng/mL [facility] Work Phone: Comment on above: INTERPRETIVE INFORMA TION: THC Metabolite, Urine, QuantitativeMethodology: Quantitative Liquid Chromatography-Tandem Mass SpectrometryPositive cutoff: 15 ng/mLFor medical purposes only; not valid for forensic use.The drug analyte detected in this assay, 9-carboxy THC, is a metabolite of uarww-0-jtxtnixjntzrgwfiswnd (THC). Detection of 9-carboxy THC suggests use of, or exposure to, a product containing THC. This test cannot distinguish between prescribed or non-prescribed forms of THC, nor can it distinguish between active or passive use. The 9-carboxy THC metabolite can be detected in urine for several weeks. Normalization of results to creatinine concentration can help document elimination or suggest recent use, when specimens are collected at least one week apart.This test was developed and its performance characteristics determined by [facility]. It has not been cleared or approved by the US Food and Drug Administration. This test was performed in a CLIA certified laboratory and is intended for clinical purposes.Performed By: [facility] [place] [address] [id number] Director: Arnulfo Connell MD, PhD Methadone Screen Ql (U) Negative NEGATIVE [facility] Work Phone: Comment on above: CUTOFF LEVEL: 150 NG /ML The metabolite I-ocatw-wzabvkyzrmtefv (LAAM) is not detected by this method in concentrations that would be found in the urine of patients on LAAM therapy. Methamphetamine (U) [Mass/Vol] ug/mL [facility] Work Phone: Comment on above: Consistent with use of a drug containing methamphetamine. Methamphetamine is metabolized to amphetamine. Amphetamine and methamphetamine exist in d- and l-isomeric forms. These forms are not distinguished by this test. Isomeric separation is available separately for an additional charge. Methylenedioxyamphetam ine (U) [Mass/Vol] <200 [facility] Work Phone: Methylenedioxyethylamp hetamine (U) [Mass/Vol] <200 [facility] Work Phone: Methylenedioxymethamph etamine (U) [Mass/Vol] <200 [facility] Work Phone: Opiates Screen Ql (U) Negative NEGATIVE [facility] Work Phone: Comment on above: CUTOFF LEVEL: 300 NG /ML The opiate screen does not detect fentanyl, meperidine, or tramadol. Oxycodone is not consistently detected (refer to Oxycodone Screen, Urine result). oxyCODONE+oxyMORphone Screen Ql (U) Negative NEGATIVE [facility] Work Phone: Comment on above: CUTOFF LEVEL: 100 NG /ML This test will accurately detect both oxycodone and oxymorphone. Phencyclidine Ql (U) Negative NEGATIVE [facility] Work Phone: Comment on above: CUTOFF LEVEL: 25 NG/ ML Cross-reactivity has been reported with dextromethorphan. Phentermine Confirm (U) [Mass/Vol] <200 [facility] Work Phone: Comment on above: Performed By: TOM [address] [place] [address] [id number] Director: Arnulfo Connlel MD, PhD Laboratory - Hematology and Cell countson 09-15-2022 Erythrocyte distribution width (RBC) [Ratio] 12.7 % See Below [facility] Work Phone: Comment on above: Reference Range: 11. 5 - 14.5 Hematocrit (Bld) [Volume fraction] 33.9 % Abnormal 36.0 - 46.0 % [facility] Work Phone: Comment on above: Reference Range: 36. 0 - 46.0 Hemoglobin (Bld) [Mass/Vol] 11.5 g/dL 11.5 - 15.5 g/dL [facility] Work Phone: Comment on above: Reference Range: 12. 0 - 16.0 MCHC (RBC) [Mass/Vol] 33.9 g/dL See Below [facility] Work Phone: Comment on above: Reference Range: 32. 0 - 36.0 MCV (RBC) [Entitic vol] 93 fL 80 - 100 [facility] Work Phone: Platelets (Bld) [#/Vol] 262 10*3/uL [facility] Work Phone: RBC (Bld) [#/Vol] 3.63 {x10E12/L} below low threshold See Below [facility] [employer] Phone: Comment on above: Reference Range: 4.0 0 - 5.20 WBC (Bld) [#/Vol] 8.1 10*3/uL 4.4 - 11.3 [facility] Work Phone: No Panel Informationon 09-15 NONE [facility] [employer] Phone: Negative Negative [facility] [employer] Phone: Comment on above: SOURCE: Thin Prep-En docervical The APTIMA Trichomonas vaginalis assay is FDA-approved for testing on female endocervical swabs, vaginal swabs, and ThinPrep liquid pap samples. Performance characteristics for Trichomonas vaginalis on specific pqu-BHZ-sxpmntgk sample types (female and male urine and male urethral swabs) have been validated by [facility]. This laboratory is certified by CLIA to perform high complexity testing. Samples from all other sites are not validated for this method. Negative NEGATIVE [facility] Work Phone: Comment on above: CUTOFF LEVEL: 5 NG/M L SEE BELOW [facility] [employer] Phone: Comment on above: Drug screen results are presumptive and should not be used to assess compliance with prescribed medication. Definitive confirmatory drug testing has been added to this sample for any positive screen result and will be reported separately. .Toxicology screening results are reported qualitatively. The concentration must be greater than or equal to the cutoff to be reported as positive. The concentration at which the screening test can detect an individual drug or metabolite varies. The absence of expected drug(s) and/or drug metabolite(s) may indicate non-compliance, inappropriate timing of specimen collection relative to drug administration, poor drug absorption, diluted/adulterated urine, or limitations of testing. For medical purposes only; not valid for forensic use. .Interpretive questions should be directed to the laboratory medical directors. PAP (EXTERNAL LAB)on 023 Microscopic observation Cyto stain Nom (Cvx) normal [facility] RPR SCREENon 09-15-2022 Reagin Ab RPR Ql (S) Non-Reactive Nonreactive [facility] RUBELLA IGG ABon 09-15-2022 RUBELLA IGG AB Positive Normal [facility] Comment on above: Result Comment: INTE RPRETATIVE COMMENT NEGATIVE: No IgG antibodies specific to Rubella detected. It is likely that the patient has not had a previous exposure to Rubella through infection or vaccination. Alternatively, the patient may have been exposed to Rubella but a failure to respond may indicate immunodeficiency. EQUIVOCAL:Equivocal results; obtain additional sample for retesting. POSITIVE: IgG antibody to Rubella detected. This may indicate that the patient was exposed to Rubella through infection or vaccination. The interpretation of serological tests should take into account the immunological status of the patient. Test results for patients, including immunocompromised patients, neonates, and pediatric patients, reflect their capacity to respond immunologically to the virus as well as their exposure to the pathogen. Patients treated with IVIG may demonstrate altered results in serological assays. Performed By: #### H CGQU #### [address] [address] Rubella IgG, Qual Positive Positive [facility] Rubella IgG Antibodyon 09-15 Rubella virus IgG IA Ql Positive [facility] Work Phone: Comment on above: INTERPRETATIVE COMME NT NEGATIVE: No IgG antibodies specific to Rubella detected. It is likely that the patient has not had a previous exposure to Rubella through infection or vaccination. Alternatively, the patient may have been exposed to Rubella but a failure to respond may indicate immunodeficiency. EQUIVOCAL:Equivocal results; obtain additional sample for retesting. POSITIVE: IgG antibody to Rubella detected. This may indicate that the patient was exposed to Rubella through infection or vaccination.The interpretation of serological tests should take into accountthe immunological status of the patient. Test results forpatients, including immunocompromised patients, neonates, andpediatric patients, reflect their capacity to respondimmunologically to the virus as well as their exposure to thepathogen. Patients treated with IVIG may demonstrate alteredresults in serological assays. SYPHILIS SCREENING WITH REFL EXon 09-15-2022 SYPHILIS TOTAL AB Non-Reactive Normal NONREACTIVE [facility] Comment on above: Result Comment: No s ignificant level of Treponema pallidum antibody detected. Repeat testing in 2 to 4 weeks may be considered if early infection or incubating syphilis infection is suspected. Performed By: #### T +S #### [facility] [address] [place] [address] T. pallidum IgG+IgM IA Ql (S) Non-Reactive See Below [employer] Work Phone: Comment on above: Reference Range: NON REACTIVENo significant level of Treponema pallidum antibody detected. Repeat testing in 2 to 4 weeks may be considered if early infection or incubating syphilis infection is suspected. TRICHOMONAS,NUCLEIC ACID DET ECTIONon 09-15-2022 Lab Specimen Source Thin Prep-Endocervical Normal [facility] Comment on above: Performed By: #### H CGQU #### [facility] [address] [place] [address] Performed By: #### T +S #### [facility] [address] [place] [address] TYPE + SCREENon 09-15-2022 ABO TYPE O Normal [facility] Comment on above: Performed By: #### T +S #### [facility] [address] [place] [address] RH TYPE Positive Normal [facility] Comment on above: Performed By: #### T +S #### [facility] [address] [place] [address] TYPE + SCREEN PRENATALon ABO O [facility] Rh Nom (Bld) Positive [facility] Tobacco Screening.on 023 Adult depression screening assessment No Thanx-ezzai - how to [place] Work Phone: Fall risk assessment a) No falls within the last year [employer] Work Phone: Last menstrual period start date 05/15/22? unknown [facility] Work Phone: Tobacco use status CPHS a) Yes [facility] Work Phone: URINE CULTURE,BACTERIALon URINE CULTURE,BACTERIAL PATIENT: TAMIE NEGRON LOCATION: [facility] BILL#: [id number] : 89 AGE: SEX: F ORDERED BY: TAYE SANDRA SOURCE: URINE COLLECTED: 09/15/22 10:36 ANTIBIOTICS AT SUNG.: RECEIVED : 09/16/22 09:49 SITE: Unspecified R E S U L T S URINE CULTURE,BACTERIAL FINAL 09/17/22 08:41 NO SIGNIFICANT GROWTH. Normal [facility] Comment on above: Performed By: #### T +S #### [facility] [address] [place] [address] No Panel Informationon 09-12 Please click on the link to view the study images Normal [facility] Work Phone: HCG, [place] [address] m[IU]/mL Abnormal W [facility] Work Phone: Comment on above: .Total HCG measureme nt is performed using the Cindy Washburn AccessImmunoassay which detects intact HCG and free beta HCG subunit. .This test is not indicated for use as a tumor marker.HCG testing is performed using a different test methodology at [facility] than other [facility]. Direct result comparisonshould only be made within the same method. REF VALUESNON FEMALE <5MALES <5.Low-level positive HCG results can be seen in early , in adam- or post-menopausal females due to normal pituitary HCGproduction, or with analytic interference. Repeat testing in 48-72hours can aid in assessing for as results should doublein this time period. FSH measurement is recommended in adam- orpost-menopausal females as concurrent elevation of FSH can supportpituitary production as the source of the HCG elevation. HCG,BETA-QUANTITATIVEon HCG,BETA-QUANTITATIVE 98532 mIU/mL Abnormal U [facility] Comment on above: Result Comment: . Total HCG measurement is performed using the Cindy Mercy Access Immunoassay which detects intact HCG and free beta HCG subunit. . This test is not indicated for use as a tumor marker. HCG testing is performed using a different test methodology at [facility] than other [facility]. Direct result comparison should only be made within the same method. REF VALUES NON FEMALE <5 MALES <5 . Low-level positive HCG results can be seen in early , in adam- or post-menopausal females due to normal pituitary HCG production, or with analytic interference. Repeat testing in 48-72 hours can aid in assessing for as results should double in this time period. FSH measurement is recommended in adam- or post-menopausal females as concurrent elevation of FSH can support pituitary production as the source of the HCG elevation. Performed By: #### H [facility] #### [facility] [address] [place] [address] INFLUENZA A/B, COVID 2019 PC R,SYMPTOMATICon 08-16-2021 Date and time of symptom onset [id number] [facility] Work Phone: INFLUENZA A/B, COVID 2019 PCR,SYMPTOMATIC Detected Abnormal See Below [facility] Work Phone: Comment on above: Reference Range: Not Detected.This assay is designed to detect the N, ORF1ab and/or S genes of SARS-CoV-2 via nucleic acid amplification. A Negative (NOT DETECTED) result does not preclude 2019-nCoV infection since the adequacy of sample collection and/or low viral burden may result in presence of viral nucleic acids below the clinical sensitivity of this test method. Negative (NOT DETECTED) result should not be used as the sole basis for treatment or other patient management decisions. Rather negative results should be combined with clinical observations, patient history, and epidemiological information to make patient management decisions.Fact sheet for providers: https://www.fda.gov/media/405697/downloadFact sheet for patients: https://www.fda.gov/media/500678/downloadThis test has received FDA Emergency Use Authorization (EUA) and has been verified by [facility] ([facility]). This test is only authorized for the duration of time that circumstances exist to justify the authorization of the emergency use of in vitro diagnostic tests for the detection of SARS-CoV-2 virus and/or diagnosis of COVID-19 infection under section 564(b)(1) of the Act, 21 U.S.C. 360bbb-3(b)(1), unless the authorization is terminated or revoked sooner. [facility] is certified under CLIA-88 as qualified to perform high complexity testing. Testing is performed in the [facility] laboratories located at [address] [place] [address]. INFLUENZA A/B, COVID 2019 PCR,SYMPTOMATIC Not detected See Below [facility] Work Phone: Comment on above: Reference Range: Not Detected Respiratory virus testing is performed routinely by PCR for Influenza A/B and RSV. If Influenza and RSV PCR are negative, testing for parainfluenza 1,2,3 viruses and adenovirus is routinely performed for oncology inpatients and intensive care unit patients at [facility] and is available on request on other patients by calling Laboratory Client Services at [phone] Not Detected results do not preclude Influenza A/B or RSV infections since the adequacy of sample collection or low viral burden may impact the clinical sensitivity of this test method..The TaqManTM SARS-CoV-2, Flu A, Flu B Multiplex Assay is a multiplex, real-time RT-PCR assay for the detection of RNA from the SARS-CoV-2, Influenza A, and Influenza B viruses. A negative result does not preclude the possibility of SARS-CoV-2, Influenza A, or Influenza B infections, and should not be used as the sole basis for patient management decision as a negative result may be caused by very low levels of infection, collection errors, or testing errors. .This test was developed and its performance characteristics were determined by the Microbiology Laboratory, Department of Pathology, [facility] [place], [place], [place]. It has not been cleared or approved by the US Food and Drug Administration; however, FDA clearance or approval is not currently required for clinical use. This test should not be regarded as investigational or for research purposes. SOURCE: Nasal, Nasop haryngealReference Range: Not Detected Respiratory virus testing is performed routinely by PCR for Influenza A/B and RSV. If Influenza and RSV PCR are negative, testing for parainfluenza 1,2,3 viruses and adenovirus is routinely performed for oncology inpatients and intensive care unit patients at [facility] and is available on request on other patients by calling Laboratory Client Services at [phone]. Not Detected results do not preclude Influenza A/B or RSV infections since the adequacy of sample collection or low viral burden may impact the clinical sensitivity of this test method. Respirationon 08-16-2021 Tobacco use status CPHS a) Yes [facility] Work Phone: Respiration Normal [facility] Work Phone: Respiration Adult [facility] Work Phone: FOOT 3V AP/LAT/OBL RIGHTon 0 10-11-2017 FOOT 3V AP/LAT/OBL RIGHT Performed at [facility] APPROVED BY: ROSALIND GREGORIO MD THREE VIEWS, RIGHT FOOT DATE: 10/11/2017 13:26 HISTORY: Injury COMPARISON: None ENCOUNTER: Not applicable TECHNIQUE: Three radiographs of the right foot including AP, lateral and oblique views were obtained. RESULT: Acute transverse fractures involving the base of the second, third and fourth metatarsal bones with minimal displacement of the fourth metatarsal fracture. No associated dislocation. Joint spaces otherwise maintained. No significant widening of the interval between the medial cuneiform and the base of the second metatarsal bone. Mild hallux valgus, measuring up to 22 degrees. Mild soft tissue swelling at the medial aspect of the first and to be joint. Minimal lateral subluxation of the sesamoid bones. No discrete large soft tissue defect, radiopaque soft tissue foreign body or gas. No suspicious osseous lesions. IMPRESSION: Acute transverse fractures involving the base of the second, third and fourth metatarsal bones. Normal [facility] Vital Signs Date Time Vital Sign Value Performing Clinician Facility 10-24-2024 08:32-0500 Body height 152.4 cm Pepe Mei MD Work Phone: [facility] 10-24-2024 08:32-0500 Body mass index (BMI) [Ratio] 21.09 kg/m2 Pepe Mei MD Work Phone: [facility] 10-24-2024 08:32-0500 Body temperature 98.29 [degF] Pepe Mei MD Work Phone: [facility] 10-24-2024 08:32-0500 Body weight 48.99 kg Pepe Mei MD Work Phone: [facility] 10-24-2024 08:32-0500 Diastolic blood pressure 79 mm[Hg] Pepe Mei MD Work Phone: [facility] 10-24-2024 08:32-0500 Heart rate 104 /min Pepe Mei MD Work Phone: [facility] 10-24-2024 08:32-0500 Respiratory rate 18 /min Pepe Mei MD Work Phone: [facility] 10-24-2024 08:32-0500 SaO2% (BldA) [Mass fraction] 100 % Pepe Mei MD Work Phone: [facility] 10-24-2024 08:32-0500 Systolic blood pressure 128 mm[Hg] Pepe Mei MD Work Phone: [facility] 12-07-2023 13:16-0400 Body height 152.4 cm Ratna Tavarez MD Work Phone: [facility] 12-07-2023 13:16-0400 Body temperature 98.8 [degF] Ratna Tavarez MD Work Phone: [facility] 12-07-2023 13:16-0400 Body weight 60.78 kg Ratna Tavarez MD Work Phone: [facility] 12-07-2023 13:16-0400 Diastolic blood pressure 66 mm[Hg] Ratna Tavarez MD Work Phone: [facility] 12-07-2023 13:16-0400 Heart rate 76 /min Ratna Tavarez MD Work Phone: [facility] 12-07-2023 13:16-0400 Respiratory rate 18 /min Ratna Tavarez MD Work Phone: [facility] 12-07-2023 13:16-0400 SaO2% (BldA) [Mass fraction] 97 % Ratna Tavarez MD Work Phone: [facility] 12-07-2023 13:16-0400 Systolic blood pressure 105 mm[Hg] Ratna Tavarez MD Work Phone: [facility] 03-22-2023 08:01-0400 Body height 154.9 cm Oli Contreras DO Work Phone: [facility] 03-22-2023 08:01-0400 Body weight 58.51 kg Oli Contreras DO Work Phone: [facility] 03-22-2023 08:01-0400 Diastolic blood pressure 50 mm[Hg] Oli Contreras DO Work Phone: [facility] 03-22-2023 08:01-0400 Systolic blood pressure 90 mm[Hg] Oli Contreras DO Work Phone: [facility] 09-15-2022 09:01-0500 Body height 154.94 cm Referring Provider Unknown [employer] Work Phone: 09-15-2022 09:01-0500 Body mass index (BMI) [Ratio] 24.09 kg/m2 Referring Provider Unknown [employer] Work Phone: 09-15-2022 09:01-0500 Body surface area Derived from formula 1.56 m2 Referring Provider Unknown [employer] Work Phone: 09-15-2022 09:01-0500 Body weight 57.83 kg Referring Provider Unknown [employer] Work Phone: 09-15-2022 09:01-0500 Diastolic blood pressure 50 mm[Hg] Referring Provider Unknown [employer] Work Phone: 09-15-2022 09:01-0500 Systolic blood pressure 118 mm[Hg] Referring Provider Unknown [employer] Work Phone: 09-15-2022 09:01-0500 4 1 Referring Provider Unknown [facility] Work Phone: Comment on above: GRAV 09-15-2022 09:01-0500 0 1 Referring Provider Unknown [employer] Work Phone: Comment on above: PARA 08-16-2021 13:44-0500 Body height 154.94 cm Referring Provider Unknown [facility] Work Phone: 08-16-2021 13:44-0500 Body mass index (BMI) [Ratio] 20.78 kg/m2 Referring Provider Unknown [facility] Work Phone: 08-16-2021 13:44-0500 Body surface area Derived from formula 1.47 m2 Referring Provider Unknown [facility] Work Phone: 08-16-2021 13:44-0500 Body temperature 97.9 [degF] Referring Provider Unknown [facility] Work Phone: 08-16-2021 13:44-0500 Body weight 49.9 kg Referring Provider Unknown [facility] Work Phone: 08-16-2021 13:44-0500 Diastolic blood pressure 72 mm[Hg] Referring Provider Unknown [facility] Work Phone: 08-16-2021 13:44-0500 Heart rate 76 /min Referring Provider Unknown [facility] Work Phone: 08-16-2021 13:44-0500 Respiratory rate 18 /min Referring Provider Unknown [facility] Work Phone: 08-16-2021 13:44-0500 SaO2% (BldA) [Mass fraction] 100 % Referring Provider Unknown [facility] Work Phone: 08-16-2021 13:44-0500 Systolic blood pressure 117 mm[Hg] Referring Provider Unknown [facility] Work Phone: 12-28-2016 01:11-0400 BP Diastolic 68 mm[Hg] [facility] Work Phone: 12-28-2016 01:11-0400 BP Systolic 105 mm[Hg] [facility] Work Phone: 12-28-2016 01:11-0400 Pulse (Heart Rate) 109 /min [facility] Work Phone: 12-28-2016 01:11-0400 Respiratory Rate 18 /min [facility] Work Phone: 12-27-2016 19:31-0400 BMI (Body Mass Index) 19.14 kg/m2 [facility] Work Phone: 12-27-2016 19:31-0400 Body Temperature 98.1 [degF] [facility] Work Phone: 12-27-2016 19:31-0400 Body weight 44.45 kg [facility] Work Phone: 12-27-2016 19:31-0400 Height 152.4 cm [facility] Work Phone: 12-27-2016 19:31-0400 Pulse Oximetry 98 % [facility] Work Phone: 12-27-2016 19:31-0400 SaO2% (BldA) [Mass fraction] 98 % [facility] Work Phone: Encounters Encounter Date Encounter Type Care Provider Facility Start: 04-03-2025 End: 04-03-2025 ambulatory Myrna MANJARREZ Work Phone: -Laboratory Thalia Singh Start: 04-03-2025 End: 04-03-2025 Patient encounter procedure VSC Myrna MANJARREZ -Laboratory Thalia Singh Start: 04-03-2025 End: 04-03-2025 ambulatory Myrnadouglas Phillips [facility] Facility:[facility] Start: 01-27-2025 End: 01-27-2025 Emergency department patient visit [facility] EMERGENCY [facility]PT Start: 10-24-2024 End: 10-24-2024 Telephone encounter Pepe Mei MD Work Phone: [facility] ([facility]) Comment on above: Referral Information (Gynecology) Start: 10-24-2024 End: 10-24-2024 Patient encounter procedure Pepe Mei MD Work Phone: [facility] ([facility]) Comment on above: Vagina bleeding (Avani geraldo Dx); Status post elective ; Constipation, unspecified constipation type Start: 10-23-2024 End: 10-23-2024 ambulatory Ratna Tavarez MD Work Phone: [facility] ([facility]) Start: 10-23-2024 End: 10-23-2024 Patient encounter procedure Ratna Tavarez MD Work Phone: [facility] ([facility]) Comment on above: ED Outreach ([facility] 10/22/2024) Start: 02-16-2024 Telephone encounter Ratna chaudhari MD Work Phone: [facility] ([facility]) Comment on above: No Show (No Show #1) Start: 12-12-2023 Telephone encounter Pernell Zhao inez [facility] [place] Comment on above: Smoking Cessation Start: 12-07-2023 End: 12-07-2023 Office outpatient new 30 minutes Ratna Tavarez MD Work Phone: [facility] ([facility]) Comment on above: Encounter to [facility] (Primary Dx); Encounter for immunization; Tobacco abuse Start: 03-22-2023 End: 03-22-2023 Patient encounter procedure Oli Contreras DO Work Phone: [facility] Comment on above: Encounter for routin e follow-up (Primary Dx); Encounter for initial prescription of contraceptive pills Start: 01-17-2023 Telephone encounter Izzy Jett Carias APRN.CNM Work Phone: [facility] Comment on above: Appointment (Needs O NE week BP check. 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: [facility] Comment on above: Intravenous drug use during in third trimester Start: 01-05-2023 End: 01-05-2023 ambulatory [facility] Facility:[facility] Start: 12-30-2022 Chart abstracting Oli Pleitez ca DO Work Phone: [facility] Comment on above: Abstract (New OB tra nsfer) Start: 12-29-2022 ambulatory MD TAYE SANDRA Facil [id number] Start: 12-29-2022 EPVOB, Provider: Taye Sandra, Status: Pen, Time: 9:30 AM Referring Provider Unknown [facility] Work Phone: Start: 12-28-2022 Chart Update Referring Prov ider Unknown [facility] Work Phone: Start: 12-26-2022 Chart Update Referring Prov ider Unknown [facility] Work Phone: Start: 12-23-2022 Chart Update Referring Prov ider Unknown [facility] Work Phone: Start: 12-22-2022 ambulatory MD TAYE SANDRA Facil [id number] Start: 12-22-2022 Office outpatient vi sit 15 minutes Referring Provider Unknown [facility] Work Phone: Start: 12-21-2022 ULTRASDFUV, Provider : [facility] 2A IMG RM 01,[id number], Status: Pen, Time: 12:15 PM Referring Provider Unknown [facility] Work Phone: Start: 12-21-2022 ambulatory MD TAYE SANDRA Facil [id number] Start: 12-19-2022 Chart Update Referring Prov ider Unknown [facility] Work Phone: Start: 12-08-2022 ambulatory MD TAYE SANDRA Facil [id number] Start: 12-08-2022 Office outpatient vi sit 15 minutes Referring Provider Unknown [facility] Work Phone: Start: 12-01-2022 ambulatory MD TAYE SANDRA Facil [id number] Start: 11-24-2022 ambulatory MD TAYE SANDRA Facil [id number] Start: 11-10-2022 EPVOB, Provider: Taye Sandra, Status: Pen, Time: 9:30 AM Referring Provider Unknown [facility] Work Phone: Start: 11-10-2022 Office outpatient vi sit 15 minutes Referring Provider Unknown [facility] Work Phone: Start: 11-10-2022 ambulatory MD TAYE SANDRA Facil [id number] Start: 11-08-2022 Chart Update Referring Prov ider Unknown [facility] Work Phone: Start: 11-08-2022 Chart Update Referring Prov ider Unknown [facility] Work Phone: Start: 11-03-2022 ambulatory MD TAYE SANDRA Facil [id number] Start: 11-03-2022 Office outpatient vi sit 15 minutes Referring Provider Unknown [facility] Work Phone: Start: 10-28-2022 ambulatory PCP UNKNOWN Facility:[id number] Start: 10-20-2022 ambulatory MD TAYE Walters ity:[id number] Start: 10-13-2022 AUDIT Referring Prov ider Unknown [facility] Work Phone: Start: 09-30-2022 ambulatory PCP UNKNOWN Facility:[id number] Start: 09-22-2022 AUDIT Referring Prov ider Unknown [facility] Work Phone: Start: 09-20-2022 ambulatory MD TAYE Walters ity:[id number] Start: 09-20-2022 Patient encounter procedure Referring Provider Unknown [facility] Work Phone: Start: 09-20-2022 RNVISIT, Provider: Patricia RASCON RN [address],[id number], Status: Pen, Time: 10:30 AM Referring Provider Unknown [facility] Work Phone: Start: 09-19-2022 Chart Update Referring Prov ider Unknown [facility] Work Phone: Start: 09-16-2022 Chart Update Referring Prov ider Unknown [facility] Work Phone: Start: 09-15-2022 Chart Update Referring Prov ider Unknown [facility] Work Phone: Start: 09-15-2022 ambulatory MD TAYE SANDRA Facil ity:[id number] Start: 09-15-2022 Office outpatient ne w 30 minutes Referring Provider Unknown [facility] Work Phone: Start: 09-15-2022 ambulatory MD TAYE SANDRA Facil [id number] Start: 09-12-2022 AUDIT Referring Prov ider Unknown [facility] Work Phone: Start: 09-12-2022 ambulatory PCP UNKNOWN Facility:[id number] Start: 08-23-2022 AUDIT Referring Prov ider Unknown [facility] Work Phone: Start: 08-17-2021 Chart Update Referring Prov ider Unknown [facility] Work Phone: Start: 08-16-2021 Office outpatient ne w 45 minutes Referring Provider Unknown [facility] Work Phone: Start: 11-17-2017 Ambulatory [facility] Facility:[facility] Start: 11-16-2017 Ambulatory FLOWER RODRIGUEZ Facili ty:[facility] Start: 10-11-2017 End: 10-11-2017 Emergency department patient visit [facility] Facility:[facility] Start: 09-28-2017 End: 09-28-2017 Emergency department patient visit IM[facility] Facility:[facility] Procedures Date Procedure Procedure Detail Performing Clinician Start: 04-03-2025 Serologic test for syphilis Myrna natarajan [facility] Work Phone: Start: 04-03-2025 Liquid based cervical cytology screening Myrna Phillips [facility] Work Phone: Comment on above: NEGATIVE FOR INTRAEPITHELIAL LESION OR M ALIGNANCY. This liquid based Th inPrep(R) pap test was screened withthe use of an image guided system. The HPV DNA reflex c riteria were not met with this specimenresult therefore, no HPV testing was performed.Performed at: [address] [id number] Director: Martha Gutierrez MD, Phone: [phone] Start: 04-03-2025 Procedure Myrna Phillips [facility] Work Phone: Comment on above: Test Ordered: [id number] NuSwab Vaginitis Pl us (VG+)Test(s) 131618- Atopobium vaginae; 227193- BVAB 2;118517- Megasphaera 1was developed and its performance characteristicsdetermined by [employer]. It has not been cleared or approvedby the Food and Drug Administration.Test(s) 915922-Zvsjyun albicans, ROHIT; 195178-Brytaai glabrata, NAAwas developed and its performance characteristicsdetermined by [employer]. It has not been cleared or approvedby the Food and Drug Administration. Atopobium vaginae High - 2 [A ] Score =G Reference Range: . BVAB 2 High - 2 [A ] Score =G Reference Range: . Megasphaera 1 High - 2 [A ] Score =G Reference Range: .Calculate total score by adding the 3 individual bacterialvaginosis (BV) marker scores together. Total score isinterpreted as follows:Total score 0-1: Indicates the absence of BV.Total score 2: Indeterminate for BV. Additional clinical data should be evaluated to establish a diagnosis.Total score 3-6: Indicates the presence of BV.Radha albicans, ROHIT Negative =G Reference Range: NegativeCandida glabrata, ROHIT Negative =G Reference Range: NegativeTrich vag by ROHIT Negative =G Reference Range: NegativeChlamydia trachomatis, ROHIT Negative =G Reference Range: NegativeNeisseria gonorrhoeae, ROHIT Negative =G Reference Range: NegativePerformed at: = - [facility] [id number] Director: Martha Gutierrez MD, Phone: [phone] at: - [facility] [id number] Director: Skyler Oneal PhD, Phone: [phone] Start: 12-07-2023 Adult depression screening assessment Ratna Tavarez MD Work Phone: Start: 01-14-2023 Antibody screen OLI CONTRERAS Comment on above: Order Comment: Specimen Type: BLOOD SPEC IMENOrdering Facility: [facility] Address: [address], [place] [address] Performed By: #### T SPN ####[facility] [id number] [place] [address] [place] Start: 01-11-2023 biophysical profile non-stress testing Oli Contreras DO Work Phone: Start: 09-15-2022 End: 09-15-2022 Antibody screen Oli Contreras DO Work Phone: Comment on above: Performed By: #### T+S #### [facility] [address] [place] [address] Start: 09-15-2022 CBC panel - Blood by Automated count [facility] Provider Start: 09-15-2022 GC/CHLAMYDIA DNA DET [facility] Provider Start: 09-15-2022 HEP B SURF AG SCRN [facility] Provider Start: 09-15-2022 HEP C AB IA W/CONF SCRN [facility] Provider Start: 09-15-2022 HIV 1 2 COMBO(AG/AB),WITH REFLEX TO DIFFERENTIATION [facility] Provider Start: 09-15-2022 End: 09-15-2022 Microscopic observation [Identifier] in Cervix by Cyto stain [facility] Provider Start: 09-15-2022 RPR SCREEN [facility] Provider Start: 09-15-2022 RUBELLA IGG AB [facility] Provider Start: 09-15-2022 TYPE + SCREEN (EXTERNAL LAB) [facility] Provide r Start: 09-15-2022 TYPE + SCREEN [facility] Provider Plan of Treatment Date Care Activity Detail Author Start: 2073 RSV Immunization for Adults (1 - 1-dose 75+ series) RSV Immunization for Adults (1 - 1-dose 75+ series) [facility] Start: 2048 Zoster Vaccines (1 of 2) Zoste r Vaccines (1 of 2) [facility] Start: 11-03-2032 DTaP/Tdap/Td Vaccine s (9 - Td or Tdap) DTaP/Tdap/Td Vaccines (9 - Td or Tdap) [facility] Start: 11-03-2032 Urine microalbumin profile DTa P,Tdap,Td Vaccine (9 - Td or Tdap) [facility] Start: 11-21-2025 Screening for malign ant neoplasm of cervix [facility] Start: 09-15-2025 Screening for malign ant neoplasm of cervix Pap Smear [facility] Start: 04-21-2025 Influenza vaccination Influenz a Vaccine (Season Ended) [facility] Start: 04-03-2025 [facility] Start: 12-06-2024 Anxiety Screening Anxiety Screening [facility] Start: 12-06-2024 Depression Screening Depression Scre ening [facility] Start: 10-24-2024 End: 10-24-2024 Patient encounter procedure 10/24/2024 8:20 AM EST Office Visit [facility] Internal Medicine [facility] ([facility]) [address] [address] [place], [place] [id number] Pepe Mei MD [address] [place], [place] [id number] ED follow up [facility] ([facility]) Comment on above: ED follow up Start: 04-21-2024 COVID-19 Vaccine ( season) COVID-19 Vaccine ( season) [facility] Start: 04-21-2024 [facility] Start: 02-16-2024 End: 02-16-2024 Patient encounter procedure 02/16/2024 9:40 AM EDT Office Visit [facility] ([facility]) [address] [place], [place] [id number] Ratna Tavarez MD [address] [place], [place] [id number] 3 months f/u [facility] ([facility]) Comment on above: 3 months f/u Start: 04-21-2023 Influenza [facility] Start: 01-19-2023 EPVOB, Provider: Taye Sandra, Status: Pen, Time: 9:30 AM EPVOB, Provider: Taye Sandra, Status: Pen, Time: 9:30 AM [facility] Work Phone: Start: 01-19-2023 EPVOB, Provider: Taye Sandra, Status: Pen, Time: 9:20 AM EPVOB, Provider: Taye Sandra, Status: Pen, Time: 9:20 AM [facility] Work Phone: Start: 01-12-2023 EPVOB, Provider: Taye Sandra, Status: Pen, Time: 9:20 AM EPVOB, Provider: Taye Sandra, Status: Pen, Time: 9:20 AM [employer] Work Phone: Start: 01-05-2023 EPVOB, Provider: Taye Sandra, Status: Pen, Time: 9:20 AM EPVOB, Provider: Taye Sandra, Status: Pen, Time: 9:20 AM [facility] Work Phone: Start: 12-29-2022 EPVOB, Provider: Taye Sandra, Status: Pen, Time: 9:30 AM EPVOB, Provider: Taye Sandra, Status: Pen, Time: 9:30 AM [facility] Work Phone: Start: 12-29-2022 EPVOB, Provider: Taye Sandra, Status: Pen, Time: 9:20 AM EPVOB, Provider: Taye Sandra, Status: Pen, Time: 9:20 AM [facility] Work Phone: Start: 12-22-2022 EPVOB, Provider: Taye Sandra, Status: Pen, Time: 9:20 AM EPVOB, Provider: Taye Sandra, Status: Pen, Time: 9:20 AM [facility] Work Phone: Start: 12-21-2022 ULTRASDFUV, Provider : [facility] 2A IMG RM 01,[id number], Status: Pen, Time: 12:15 PM ULTRASDFUV, Provider: [facility] 2A IMG RM 01,[id number], Status: Pen, Time: 12:15 PM [facility] Work Phone: Start: 12-08-2022 EPVOB, Provider: Taye Sandra, Status: Pen, Time: 10:20 AM EPVOB, Provider: Taye Sandra, Status: Pen, Time: 10:20 AM [facility] Work Phone: Start: 11-24-2022 EPVOB, Provider: Taye Sandra, Status: Pen, Time: 9:20 AM EPVOB, Provider: Taye Sandra, Status: Pen, Time: 9:20 AM [facility] Work Phone: Start: 11-10-2022 EPVOB, Provider: Taye Sandra, Status: Pen, Time: 9:30 AM EPVOB, Provider: Taye Sandra, Status: Pen, Time: 9:30 AM [facility] Work Phone: Start: 10-28-2022 EPVOB, Provider: Taye Sandra, Status: Pen, Time: 9:50 AM EPVOB, Provider: Taye Sandra, Status: Pen, Time: 9:50 AM [facility] Work Phone: Start: 10-28-2022 EPVOB, Provider: Taye Sandra, Status: Pen, Time: 9:40 AM EPVOB, Provider: Taye Sandra, Status: Pen, Time: 9:40 AM [facility] Work Phone: Start: 10-20-2022 EPVOB, Provider: Taye Sandra, Status: Pen, Time: 10:50 AM EPVOB, Provider: Taye Sandra, Status: Pen, Time: 10:50 AM [facility] Work Phone: Start: 10-13-2022 EPVOB, Provider: Taye Sandra, Status: Pen, Time: 9:30 AM EPVOB, Provider: Taye Sandra, Status: Pen, Time: 9:30 AM [facility] Work Phone: Start: 09-15-2022 NPVOBINTL, Provider: Taye Sandra, Status: Pen, Time: 9:00 AM NPVOBINTL, Provider: Taye Sandra, Status: Pen, Time: 9:00 AM [facility] Work Phone: Start: 09-15-2022 .INTAKE, Provider: Patricia RASCON RN [address],[id number], Status: Pen, Time: 8:30 AM .INTAKE, Provider: EMEKA RASCON RN [address],[id number], Status: Pen, Time: 8:30 AM [facility] Work Phone: Start: 08-21-2022 DEPRESSION ASSESSMENT DEPRESSION ASS ESSMENT [facility] Start: 04-21-2021 Influenza vaccination Flu vacc ine (Season Ended) [facility] Work Phone: Start: 05-13-2020 DTaP/Tdap/Td vaccine (7 - Td) DTaP/Tdap/Td vaccine (7 - Td) [facility] Work Phone: Start: 2019 PAP TESTING PAP TESTING [facility] Start: 2019 Screening for malign ant neoplasm of cervix Cervical cancer screen [facility] Work Phone: Start: 2017 Urine microalbumin profile DTA P,TDAP,TD (1 - Tdap) [facility] Start: 2016 Hepatitis C screening Hepatitis C Sc reening [facility] Start: 08-05-2015 Pneumococcal 0-64 ye ars Vaccine (1 of 1 - PPSV23) Pneumococcal 0-64 years Vaccine (1 of 1 - PPSV23) [facility] Work Phone: Start: 08-05-2015 Pneumococcal Vaccine : Pediatrics (0 to 5 Years) and At-Risk Patients (6 to 49 Years) (2 of 2 - PPSV23) Pneumococcal Vaccine: Pediatrics (0 to 5 Years) and At-Risk Patients (6 to 49 Years) (2 of 2 - PPSV23) [facility] Start: 2014 COVID-19 Vaccine (1) COVID-19 Vaccin e (1) [facility] Work Phone: Start: 2014 MENINGOCOCCAL B: Con proposal coordinator based on risk (1 of 2 - Patient Seeks Protection) MENINGOCOCCAL B: Consider based on risk (1 of 2 - Patient Seeks Protection) [facility] Start: 2014 Screening for Chlamy shanelle trachomatis Chlamydia screen [facility] Work Phone: Start: 2012 PEDS TO ADULT TRANSI TION ANNUAL ASSESSMENT PEDS TO ADULT TRANSITION ANNUAL ASSESSMENT [facility] Start: 2010 COVID-19 Vaccine (1) COVID-19 Vaccin e (1) [facility] Work Phone: Start: 2010 Depression Monitoring Depression [facility] Start: 2010 PEDS TO ADULT TRANSI TION INITIAL DISCUSSION PEDS TO ADULT TRANSITION INITIAL DISCUSSION [facility] Start: 2009 HPV vaccine (1 - 2-d ose series) HPV vaccine (1 - 2-dose series) [facility] Start: 2008 MENINGOCOCCAL B: Con proposal coordinator based on risk (1 of 2 - Risk Bexsero 2-dose series) MENINGOCOCCAL B: Consider based on risk (1 of 2 - Risk Bexsero 2-dose series) [facility] Start: 2007 HPV VACCINE (1 - 2-d ose series) HPV VACCINE (1 - 2-dose series) [facility] Start: 2004 PNEUMOCOCCAL (1 - PCV) PNEUMOCOCCAL (1 - PCV) [facility] Start: 1998 COVID-19 VACCINE (#1) COVID-19 VACCI NE (#1) [facility] Start: 1998 HEPATITIS B (1 of 3 - 3-dose series) HEPATITIS B (1 of 3 - 3-dose series) [facility] Start: 1998 Hepatitis C screening Hepatitis C sc reen [facility] Work Phone: Start: 1998 Lipid panel Lipid Panel [facility] Hepatitis B surface antigen measurement [facility] Hepatitis B virus co re Ab [Presence] in Serum [facility] Hepatitis B virus german rface Ab [Units/volume] in Serum by Radioimmunoassay (ASHLEY) [facility] End: 11-23-2025 US Pelvis limited US FEMALE PELVIS TRANSABD LTD Radiology Routine Vagina bleeding Status post elective 1 Occurrences starting 10/24/2024 until 11/23/2025 [facility] Work Phone: Comment on above: 1 Occurrences starti ng 10/24/2024 until 11/23/2025 End: 11-23-2025 US Pelvis transvaginal US FEMALE PELVIS TRANSVAG Radiology Routine Vagina bleeding Status post elective 1 Occurrences starting 10/24/2024 until 11/23/2025 [facility] Comment on above: 1 Occurrences starti ng 10/24/2024 until 11/23/2025 [facility] Immunizations Immunization Date Immunization Notes Care Provider Fa cili 12-07-2023 pneumococcal conjuga te (PCV20) vaccine, 20 valent (PREVNAR 20) Ratna Taavrez MD Work Phone: [facility] 12-07-2023 pneumococcal Conjuga te, unspecified formulation Ratna Tavarez MD Work Phone: [facility] Work Phone: 11-03-2022 DTaP-hepatitis B and poliovirus vaccine Ratna Tavarez MD Work Phone: [facility] 11-03-2022 tetanus toxoid, redu erica diphtheria toxoid, and acellular pertussis vaccine, adsorbed; Translations: [Tdap (Boostrix)] Referring Provider Unknown [facility] Comment on above: Series: 06-10-2015 influenza, injectabl e, quadrivalent, preservative free Referring Provider Unknown [facility] 06-10-2015 pneumococcal conjuga te vaccine, 13 valent [facility] 06-10-2015 influenza virus vacc ine, unspecified formulation Ratna Tavarez MD Work Phone: [facility] 07-11-2014 HPV, unspecified formulation Referring Provider Unknown [facility] 07-11-2014 influenza, live, intranasal, quadrivalent Referring Provider Unknown [facility] 07-11-2014 meningococcal polysaccharide (groups A, C, Y and W-135) diphtheria toxoid conjugate vaccine (MCV4P) [facility] 04-11-2014 hepatitis A vaccine, pediatric/adolescent dosage, 2 dose schedule Referring Provider Unknown [facility] 04-11-2014 hepatitis A vaccine, unspecified formulation [facility] 04-11-2014 human papilloma viru s vaccine, quadrivalent Referring Provider Unknown [facility] 03-06-2013 hepatitis A vaccine, pediatric/adolescent dosage, 2 dose schedule Referring Provider Unknown [facility] 03-06-2013 hepatitis A vaccine, unspecified formulation [facility] 03-06-2013 human papilloma viru s vaccine, quadrivalent Referring Provider Unknown [facility] 05-13-2010 influenza virus vacc ine, whole virus Referring Provider Unknown [facility] 05-13-2010 meningococcal polysaccharide (groups A, C, Y and W-135) diphtheria toxoid conjugate vaccine (MCV4P) [facility] 05-13-2010 tetanus toxoid, redu erica diphtheria toxoid, and acellular pertussis vaccine, adsorbed [facility] 05-13-2010 varicella virus vaccine [facility] 05-11-2010 meningococcal polysaccharide (groups A, C, Y and W-135) diphtheria toxoid conjugate vaccine (MCV4P) Ratna Tavarez MD Work Phone: [facility] 03-23-2006 varicella virus vaccine Refe rring Provider Unknown [facility] 12-23-2003 diphtheria, tetanus toxoids and acellular pertussis vaccine [facility] Work Phone: 12-23-2003 diphtheria, tetanus toxoids and acellular pertussis vaccine, unspecified formulation Referring Provider Unknown [facility] 12-23-2003 influenza, seasonal, injectable Referring Provider Unknown [facility] 12-23-2003 measles, mumps and rubella virus vaccine [facility] 12-23-2003 poliovirus vaccine, inactivated [facility] 12-23-2003 varicella virus vaccine [facility] 07-19-2001 diphtheria, tetanus toxoids and acellular pertussis vaccine [facility] Work Phone: 07-19-2001 diphtheria, tetanus toxoids and acellular pertussis vaccine, unspecified formulation Referring Provider Unknown [facility] 07-19-2001 haemophilus influenz ae type b vaccine, PRP-T conjugate [facility] 07-19-2001 varicella virus vaccine Ther mook Tavarez MD Work Phone: [facility] 05-22-2000 diphtheria, tetanus toxoids and acellular pertussis vaccine [facility] Work Phone: 05-22-2000 diphtheria, tetanus toxoids and acellular pertussis vaccine, unspecified formulation Referring Provider Unknown [facility] 05-22-2000 haemophilus influenz ae type b conjugate and Hepatitis B vaccine [facility] 05-22-2000 measles, mumps and rubella virus vaccine [facility] 05-22-2000 poliovirus vaccine, inactivated [facility] 1998 diphtheria, tetanus toxoids and acellular pertussis vaccine [facility] Work Phone: 1998 diphtheria, tetanus toxoids and acellular pertussis vaccine, unspecified formulation Referring Provider Unknown [facility] 1998 poliovirus vaccine, inactivated [facility] 1998 diphtheria, tetanus toxoids and acellular pertussis vaccine [facility] 1998 diphtheria, tetanus toxoids and acellular pertussis vaccine, unspecified formulation Referring Provider Unknown [facility] 1998 poliovirus vaccine, inactivated [facility] 1998 haemophilus influenz ae type b conjugate and Hepatitis B vaccine [facility] 1998 haemophilus influenz ae type b conjugate and Hepatitis B vaccine [facility] Payers Date Payer Category Payer Self-pay 2023 Medicaid [facility] ODM [id number] 2022 Medicaid [id number] 2022 Medicaid [id number] 2020 Unknown [id number] 2016 Medicaid MEDICAID [facility] DEPT OF JOB [id number] 2016-Present [phone] [address] [place] [address] [id number] .[id number] 1998 Unknown [id number] 2.16.840.1.215076.3.579.2.106 9 1998 Unknown [id number] 2.16.840.1.147222.3.579.2.106 9 1998 Unknown [id number] 2.16.840.1.598816.3.579.2.106 9 1998 Unknown [id number] 2.16.840.1.399621.3.579.2.356 1998 Unknown [id number] 2.16.840.1.656147.3.579.2.356 1998 Unknown [id number] 2.16.840.1.979657.3.579.2.356 1998 Unknown [id number] 2.16.840.1.274602.3.579.2.356 1998 Unknown [id number] 2.16.840.1.625404.3.579.2.356 1998 Unknown [id number] 2.16.840.1.475038.3.579.2.356 1998 Unknown [id number] 2.16.840.1.894993.3.579.2.356 1998 Unknown [id number] 2.16.840.1.299850.3.579.2.356 1998 Unknown [id number] 2.16.840.1.505250.3.579.2.356 1998 Unknown [id number] 2.16.840.1.175036.3.579.2.356 1998 Unknown [id number] 2.16.840.1.214484.3.579.2.356 1998 Unknown [id number] 2.16.840.1.621703.3.579.2.356 1998 Unknown [id number] 2.16.840.1.948837.3.579.2.356 Unknown [employer] Unknown [id number] Social History Date Type Detail Facility Start: 01-02-2017 End: 12-07-2023 Tobacco smoking status NHIS Current every day smoker [facility] History of tobacco use Cigarette Smoker [facility] Start: 01-02-2017 End: 01-27-2025 Cigarettes smoked current (pack per day) - Reported [facility] Work Phone: Start: 01-02-2017 Alcohol intake Current drinke r of alcohol (finding) [facility] Work Phone: Start: 02-18-2016 Alcohol Comment Occasionally [facility] Work Phone: Start: 1998 Sex Assigned At Female [facility] Work Phone: Start: 09-28-2017 End: 12-07-2023 Tobacco use and exposure Smokeless tobacco non-user [facility] Start: 12-30-2022 End: 12-07-2023 Alcohol intake Current non-drinker of alcohol (finding) [facility] Start: 04-28-2022 [facility] Start: 1998 Sex Assigned At Not on file [facility] Start: 03-22-2023 End: 01-27-2025 Tobacco use panel [facility] Work Phone: National Score (1-10 0), lower number is lower risk 64 [facility] Work Phone: How often to you hav e a drink containing alcohol? 2-3 time sa week [facility] How many standard drinks containing alcohol do you have on a typical day? 3 or 4 [facility] How often do you hav e 6 or more drinks on 1 occasion? Monthly [facility] Start: 03-21-2022 Sex Female (finding) [facility] Start: 06-09-2022 Gender identity Identifies as female gender (finding) [facility] Start: 06-09-2022 Sexual orientation Choose not to dis close [facility] Tobacco smoking stat us NHIS Unknown if ever smoked [facility] Work Phone: Goals Date Patient Goal Desired Activity /State Personal health goal Functional Status Date Assessment Result Facility 01-27-2025 Total score [AUDIT-C] 6 01/28/20 25 10:22 PM Musa Layton RN [facility] 01-18-2023 Are you deaf, or do you have serious difficulty hearing No 01/18/2023 5:06 PM Ester Bonilla, RY [facility] 01-18-2023 Are you blind, or do you have serious difficulty seeing, even when wearing glasses No 01/18/2023 5:06 PM Ester Bonilla, RY [facility] 01-18-2023 Do you have serious difficulty walking or climbing stairs No 01/18/2023 5:06 PM Ester Bonilla, RY [facility] 01-18-2023 Do you have difficul ty dressing or bathing No 01/18/2023 5:06 PM Ester Bonilla, RY [facility] 01-18-2023 Because of a physica l, mental, or emotional condition, do you have difficulty doing errands alone such as visiting a physician's office or shopping No 01/18/2023 5:06 PM Ester Bonilla, RY No [facility] Mental Status Date Assessment Result Facility 01-18-2023 Because of a physica l, mental, or emotional condition, do you have serious difficulty concentrating, remembering, or making decisions No 01/18/2023 5:06 PM Ester Bonilla, RY No [facility] Clinical Notes 08-10-2021 to 01-27-2025 Nidhi Lo RN - 01/27/2025 11:52 PM Andres Lo RN - 01/27/2025 11:52 PM ABEL Pillai CNP - 01/27/2025 10:13 PM ABEL Pillai CNP - 01/27/2025 10:13 PM EDT Note Date & Type Note Facility 01-27-2025 Emergency department Note Pt states she wants to leave, Tobin XIAO notified. Pt refused vitals. [facility] 01-27-2025 Emergency department Note Pt states she wants to leave, Tobin XIAO notified. Pt refused vitals. I did not participate in care of this patient ABEL Amaral CNP 01/28/25 0629 documented in this encounter [facility] 01-27-2025 Physician Emergency department Note I did not participate in care of this patient ABEL Amaral CNP 01/28/[address] [facility] Work Phone: 10-24-2024 Telephone encounter Note Referral to DEVELOPMENT MECHANIC entered into the [facility] portal on 10/24/24. Confirmation number [id number]. [facility] 10-24-2024 Miscellaneous Notes Referral to DEVELOPMENT MECHANIC entered into the [facility] portal on 10/24/24. Confirmation number [id number]. documented in this encounter [facility] 10-24-2024 History of Presen t illness Narrative Subjective: Tamie Negron is a 24 year old White female, Patient presents with: ED Follow-up HPI Pt of Dr. Tavarez, here for ER f/up - pt went to ER y'day but eloped prior to being seen. Had 2 weeks ago - has bleeding that is 'light'. No cramping. No fever Does not see PHARMACEUTICAL BOTANIST, last Pap was 3-4 yrs ago. [facility]. PAST MEDICAL HISTORY Diagnosis Date Drug abuse and dependence (HCC) PAST SURGICAL HISTORY Procedure Laterality Date NONE [facility] 01/14/2023 Social History Tobacco Use Smoking status: Every Day Current packs/day: 0.25 Average packs/day: 0.3 packs/day for 5.0 years (1.3 ttl pk-yrs) Types: Cigarettes Smokeless tobacco: Never Vaping Use Vaping status: Never Used Substance Use Topics Alcohol use: No Drug use: Not Currently Types: Marijuana, Amphetamines Comment: daily marajuana ALLERGIES No Known Allergies Current Outpatient Medications Medication Sig Blood Pressure Monitor 1 Each twice daily. ferrous sulfate 325 mg (65 mg iron) tablet Take 1 tablet by mouth once daily. omega 0-guj-cdj-fish oil (FISH OIL) 100-160-1,000 mg cap Take by mouth. vit,calc76/iron/folic (PNV 29-1 ORAL) Take 1 tablet by mouth once daily. nicotine (NICODERM CQ) 7 mg/24 hr Apply 1 Patch as directed every 24 hours. Norethindrone, Contraceptive, (MELBA) 0.35 mg tablet Take 1 tablet by mouth once daily. No current facility-administered medications for this visit. Review of Systems Constitutional: Negative for fever. Respiratory: Negative for shortness of breath. Cardiovascular: Negative for chest pain. Gastrointestinal: Positive for nausea (y'day but able to take po though.). Negative for vomiting. Neurological: Negative for dizziness. BP 128/79 Pulse 104 Temp 98.3 Resp 18 Ht 5' 0 (1.52m) Wt 108 lb (49.0kg) SpO2 100% BMI 21.09 kg/(m^2). Physical Exam Constitutional: General: She is not in acute distress. HENT: Head: Normocephalic. Cardiovascular: Rate and Rhythm: Normal rate and regular rhythm. Heart sounds: Normal heart sounds. No murmur heard. Pulmonary: Effort: Pulmonary effort is normal. No respiratory distress. Breath sounds: Normal breath sounds. No wheezing. Abdominal: General: Bowel sounds are normal. There is no distension. Palpations: Abdomen is soft. Tenderness: There is no abdominal tenderness. Musculoskeletal: Comments: + d pedis b/l symmetrical Skin: General: Skin is warm and dry. Neurological: Mental Status: She is alert and oriented to person, place, and time. Psychiatric: Mood and Affect: Mood and affect normal. ASSESSMENT/PLAN: 1. Vagina bleeding - ICD9: 623.8, ICD10: N93.9 (primary diagnosis) 2. Status post elective - ICD9: V45.89, ICD10: Z98.890 No sign of infection but has ongoing bleeding which can be post procedural. Will check USG to evaluate. Will also refer her to PHARMACEUTICAL BOTANIST per pt request though she was encouraged to contact the place where the procedure was done. - CONSULT TO GYNECOLOGY - US FEMALE PELVIS TRANSABD LTD - US FEMALE PELVIS TRANSVAG 3. Constipation, unspecified constipation type - ICD9: 564.00, ICD10: K59.00 Discussed conservative and dietary measures with pt. Discussed above plan with patient. Pt agreeable with above plan. Pepe Mei MD This note was partially generated using [employer] voice recognition system, and there may be some incorrect words, spellings, and punctuation that were not noted while reviewing the note before saving. documented in this encounter [facility] 10-23-2024 History of Presen t illness Narrative ED Follow-Up Note Provider Action / FYI: na Call completed by: AYESHA Patient seen in ED: In Network ED Contact made with Patient: No, left message. Louise Mcmanus LPN October 23, 2024 8:32 AM documented in this encounter [facility] 02-16-2024 Telephone encounter Note No Show Documentation Tamie Negron no showed for an appointment on 02/16/24 with Ratna Tavarez MD at 9:40 AM. She was scheduled for follow up. I called and spoke with the patient regarding her missed appointment. Tamie stated the reason that she missed her appointment was because - Attempted to contact the patient regarding missed appointment. Phone number listed rings. Voicemail is full unable to leave message . Resources discussed/offered to patient: N/A No show determined to be fault of patient: Yes This is the patients first no show in the last 12 months. Patient was rescheduled for N/A. Letter mailed : Yes Is this the Third or Fourth No Show? No Chasity Dangelo February 16, 2024 2:44 PM [facility] 02-16-2024 Miscellaneous Notes No Show Documentation Tamie Negron no showed for an appointment on 02/16/24 with Ratna Tavarez MD at 9:40 AM. She was scheduled for follow up. I called and spoke with the patient regarding her missed appointment. Tamie stated the reason that she missed her appointment was because - Attempted to contact the patient regarding missed appointment. Phone number listed rings. Voicemail is full unable to leave message . Resources discussed/offered to patient: N/A No show determined to be fault of patient: Yes This is the patients first no show in the last 12 months. Patient was rescheduled for N/A. Letter mailed : Yes Is this the Third or Fourth No Show? No Chasity Dangelo February 16, 2024 2:44 PM documented in this encounter [facility] 12-12-2023 Telephone encounter Note Smoking Cessation Navigation Outcome of contact: Left Message Comments: A voicemail has been left for this patient regarding Tobacco Cessation support options. If this patient has any further questions they can email us at or call us at [phone]. [employer] Congressional Representative/Smoking Cessation Navigator: Pernell Ruiz [facility] ED [facility] 12-12-2023 Miscellaneous Notes Smoking Cessation Navigation Outcome of contact: Left Message Comments: A voicemail has been left for this patient regarding Tobacco Cessation support options. If this patient has any further questions they can email us at or call us at [phone]. [employer] Congressional Representative/Smoking Cessation Navigator: [facility] documented in this encounter [facility] 12-07-2023 History of Presen t illness Narrative Attending Note I discussed with resident. The patient was not examined by the attending. I reviewed the resident's note. I agree with the resident's assessment and plan unless otherwise noted. Signature: Mike Cochran DO Date: 12/07/2023. Time: 4:00 PM Images from the original note were not included. [facility] Ratna Tavarez MD ASSESSMENT/PLAN: 1. Encounter to establish care - ICD9: V65.8, ICD10: Z76.89 (primary diagnosis) - BEHAVIORAL HEALTH SCREENING 2. Encounter for immunization - ICD9: V03.89, ICD10: Z23 - PNEUMOCOCCAL VACCINE, 20 VALENT (PREVNAR 20) 3. Tobacco abuse - ICD9: 305.1, ICD10: Z72.0 - Cessation encouraged. - Physiologic and physical aspects of tobacco addiction as well as strategies for quitting were discussed. - Counseling was given focusing on the harmful effects of this addiction especially given the patient's medical condition(s) which will be worsened because of the chemicals in tobacco. - Counseling was given 3-4 minutes. - Recommended to called 1-800-QUIT NOW - CONSULT TO SMOKING CESSATION - NICOTINE 7 MG/24 HR DAILY TRANSDERMAL PATCH Ratna Tavarez MD SUBJECTIVE: Tamie Negron is a 23 year old female here today for establishing care. HPI 23-year-old female comes to the office today for establishing care Significant past medical history: - Gestational hypertension - IVDU during - section on 12/2022 - Tobacco use Patient, here today wants to get help for smoking cessation. She has been smoking for the past 5 years, 0.25 packs/day. She mentioned that her is not a smoker. Patient is specifically asking for nicotine patch. She is also agreeable to get consulted to smoking cessation counselor. Denies any other symptoms: denied chest pain, shortness of breath, diaphoresis, nausea, vomiting, palpitations, dizziness, lightheadedness, syncope, headache, heartburn, fever, chills, fatigue, abdominal pain, anxiety, or changes in bowel/urinary habits. Health discussion was discussed. Patient agreeable to get pneumococcal vaccination today, refused to get any COVID vaccination. Patient mentioned that she had a Pap smear 1 year ago with her OB. PAST MEDICAL HISTORY Diagnosis Date Drug abuse and dependence (HCC) PAST SURGICAL HISTORY Procedure Laterality Date NONE [facility] 01/14/2023 Social History Tobacco Use Smoking status: Every Day Packs/day: 0.25 Years: 5.00 Additional pack years: 0.00 Total pack years: 1.25 Types: Cigarettes Smokeless tobacco: Never Vaping Use Vaping Use: Never used Substance Use Topics Alcohol use: No Drug use: Not Currently Types: Marijuana, Amphetamines Comment: daily [facility] FAMILY HISTORY Problem Relation Age of Onset Alcohol/Drug Mother Alcohol/Drug Father PAIN EVALUATION No data found in the last 1 encounters. ALLERGIES No Known Allergies Current Outpatient Medications Medication Sig ibuprofen (MOTRIN) 600 mg tablet Take 1 tablet by mouth every 6 hours as needed for pain for up to 25 days. Norethindrone, Contraceptive, (MELBA) 0.35 mg tablet Take 1 tablet by mouth once daily. Blood Pressure Monitor 1 Each twice daily. omega 7-iel-pyv-fish oil (FISH OIL) 100-160-1,000 mg cap Take by mouth. nicotine (NICODERM CQ) 7 mg/24 hr Apply 1 Patch as directed every 24 hours. ferrous sulfate 325 mg (65 mg iron) tablet Take 1 tablet by mouth once daily. vit,calc76/iron/folic (PNV 29-1 ORAL) Take 1 tablet by mouth once daily. No current facility-administered medications for this visit. I have confirmed and edited as necessary the chief complaint, medications, past medical, family and social histories. Review of Systems Constitutional: Negative for appetite change, chills, fatigue and fever. HENT: Negative for ear discharge, ear pain, rhinorrhea and sore throat. Eyes: Negative for discharge and redness. Respiratory: Negative for cough and shortness of breath. Cardiovascular: Negative for chest pain. Gastrointestinal: Negative for abdominal pain, nausea and vomiting. Genitourinary: Negative for dysuria and flank pain. Musculoskeletal: Negative for joint swelling and myalgias. Skin: Negative for rash. Neurological: Negative for seizures, speech difficulty, weakness, numbness and headaches. OBJECTIVE: BP 105/66 (BP Site: Left Arm, BP Position: Sitting, BP Cuff Size: Regular Adult) Pulse 76 Temp 37.1 C (98.8 F) Resp 18 Ht 152.4 cm (5') Wt 60.8 kg (134 lb) LMP (LMP Unknown) SpO2 97% BMI 26.17 kg/m Physical Exam Vitals and nursing note reviewed. Constitutional: General: She is not in acute distress. HENT: Head: Normocephalic and atraumatic. Mouth/Throat: Mouth: Mucous membranes are moist. Pharynx: Oropharynx is clear. Eyes: Extraocular Movements: Extraocular movements intact. Pupils: Pupils are equal, round, and reactive to light. Cardiovascular: Rate and Rhythm: Normal rate and regular rhythm. Pulses: Normal pulses. Heart sounds: Normal heart sounds. Pulmonary: Effort: Pulmonary effort is normal. Breath sounds: Normal breath sounds. Abdominal: General: Bowel sounds are normal. Palpations: Abdomen is soft. Tenderness: There is no abdominal tenderness. There is no guarding. Musculoskeletal: Right lower leg: No edema. Left lower leg: No edema. Skin: General: Skin is warm and dry. Capillary Refill: Capillary refill takes less than 2 seconds. Neurological: General: No focal deficit present. Mental Status: She is alert and oriented to person, place, and time. 12/07/2023 12/07/2023 PHQ-9 All Questions Little interest or pleasure in doing things 0 Feeling down, depressed, or hopeless 0 PHQ-9 Score 0 (0-4) minimal depression, (5-9) mild depression, (10-14) moderate depression, (15-19) moderately severe depression, (20-27) severe depression Screening tool completed by patient. Based on the PHQ-2 score and patient interview, patient is not at risk for depression. Screening tool discussed with patient, and I recommended no further intervention at this time. Return in about 3 months (around 03/07/2024). Discussed the above with the patient and my preceptor using shared decision-making. The patient is in agreement with the diagnostic and treatment plans. Provider: Ratna Tavarez MD Signed on: December 07, 2023 1:30 PM documented in this encounter [facility] 12-07-2023 Instructions Ratna Tavarez MD - 12/07/2023 1:39 PM EDT Images from the original note were not included. Quitting Smoking If you smoke, quitting smoking is the most important step you can take to protect your lungs. It is NEVER too late to quit. Your doctor can help you decide which smoking cessation method will work best for you. Why should I quit? You've probably heard how smoking can be harmful. Here's some ways quitting can be helpful. If you quit, you will: Prolong your life Improve your health (Smoking increases your risk of lung cancer, throat cancer, emphysema, heart disease, high blood pressure, ulcers, gum disease and other conditions.) Feel healthier (Smoking can cause coughing, poor athletic ability and sore throats.) Look better (Smoking can cause face wrinkles, stained teeth and dull skin.) Improve your sense of taste and smell Save money How can I quit? There's no one way to quit that works for everyone. A smoking cessation program may be helpful to you. Ask your health care provider about smoking cessation programs in your community. Before you quit all at once (cold turkey), setting a plan will help: Pick a date to stop smoking and then get ready for it. Record when and why you smoke. You will come to know what triggers your urges to smoke. Record what you do when you smoke. As you plan to stop, try smoking at different times and different places to break the connections between smoking and certain activities. List your reasons for quitting. Read over the list before and after you quit. Find activities to replace smoking. Be ready to do something else when you want to smoke. Ask your health care provider about using nicotine gum and patches. Some people find these aids are very helpful. Also ask your doctor about a nicotine-free prescription medication (for example, Chantix or Zyban ) that can help you quit smoking. What to do when you quit On the day you pick to quit, start that morning without a cigarette. Don't focus on what you are missing. Think about what you are gaining. (See the section below, What Happens When You Quit.) Tell yourself you are a great person for quitting. Remind yourself of this when you want a smoke. When you get the urge to smoke, take a deep breath. Hold it for ten seconds, then release it slowly. Keep your hands busy. Doodle, play a sport, knit or work on a computer. Change activities that were connected to smoking. Take a walk or read a book instead of taking a cigarette break. Don't carry a coal crusher operator, matches or cigarettes. Go to places that don't allow smoking, such as museums and libraries. Eat low-calorie, healthy foods when the urge to smoke strikes. Carrot and celery sticks, fresh fruits and fat-free snacks are good choices. Drink a lot of fluids. Cut down on alcohol and caffeine. They can trigger urges to smoke. Select water, herbal teas, caffeine-free soft drinks and juices. Exercise. Exercising will help you relax. Hang out with non-smokers. Get support for quitting. Tell others about your milestones with pride. What happens when you quit? After 20 minutes You stop polluting the air Your blood pressure and pulse decrease The temperature of your hands and feet increases After 8 hours The carbon monoxide level in your blood returns to normal Oxygen levels in your blood increase After 24 hours Your chance of heart attack decreases After 48 hours Nerve endings adjust to the absence of nicotine Your ability to taste and smell begin to return After 72 hours Bronchial tubes relax After 2 weeks to 3 months Your circulation improves Your exercise tolerance improves After 1-9 months Coughing, sinus congestion, fatigue and shortness of breath decrease Cilia re-grow, increasing the ability of the lungs to handle mucus, clean the lungs and reduce infection Your overall energy level increases After 1 year Your risk of heart disease decreases to half that of a current smoker After 5 years Your risk of stroke is reduced to that of people who have never smoked After 10 years Risk of dying from lung cancer drops to almost the same rate as a lifelong NON-smoker The incidence of other cancers - of the mouth, larynx, esophagus, bladder, kidney and pancreas - decreases More good news: Quitting smoking improves your ability to breathe! Even nonsmokers experience a decrease in lung capacity (the volume of air you are able to take in and forcibly exhale in one second) with age. However, you can minimize the impact by quitting smoking. If you want to breathe easier, the earlier you quit, the more lung capacity you will retain -- here are some facts: If you are a smoker who has smoked an average of 30 cigarettes a day beginning at age 25, your lung capacity could decrease slightly more than a nonsmoker and would be below the average capacity of a nonsmoker by the time you turn 40. Furthermore, if you are a smoker who is at risk for chronic obstructive pulmonary disease (a lung disease), your lung capacity can decrease rapidly by age 65 at which point you will likely be frequently short of breath. How will I feel when I quit? You may: crave cigarettes, feel very hungry, cough often, get headaches, have difficulty concentrating, have constipation, feel very tired, have a sore throat or have difficulty sleeping. Although withdrawal symptoms will be the strongest when you first quit, they should go away within a few weeks. I've tried quitting before, but it didn't work. What can I do? To quit smoking, you must be ready emotionally and mentally. Some people are more ready to quit than others. Look at these five stages of change. Stage one: Pre-contemplation - The person does not want to quit smoking but may try to quit because he or she feels pressured. Stage two: Contemplation - The person wants to quit someday. He or she has not taken steps to quit, but wants to quit. Stage three: Preparation - The person takes small steps to quit such as cutting back on smoking or switching to a coal crusher operator brand. Stage four: Action - The person puts a plan for quitting into action. He or she makes changes in his or her actions and environment to help cope with urges to smoke. The person ethan with urges to smoke by following the plan and remains smoke-free for six months. Stage five: Maintenance - The person has not smoked for one year. Smoking again (relapse) is common; 75% of those who quit, smoke again. Most smokers have tried three times before successfully quitting. Don't give up! For more information [employer] [phone] [employer] [phone] [employer] [phone] References: COPD Foundation. Understanding COPD. Living With COPD. Quitting Smoking Accessed 06/23/2014. [employer]. Stop Smoking Accessed 06/23/2014. Copyright 4343-0351 The [facility]. All rights reserved This information is provided by the [facility] and is not intended to replace the medical advice of your doctor or health care provider. Please consult your health care provider for advice about a specific medical condition. For additional health information, please contact the Center for Consumer Health Information at the [facility] or toll-free extension [phone]. If you prefer, you may visit [email or web address] or [email or web address]. This document was last reviewed on: 2017 index#[id number] documented in this encounter [facility] 03-22-2023 History of Presen t illness Narrative 03/22/23 2:49 PM SUBJECTIVE: 22 year old year old female presents today for her exam. Patient's was complicated by gestational HTN and PPH. Jordan Reeder [[id number]] Delivery Information: Delivery Date: 01/14/23 Delivery type: , Low Transverse Delivering Clinician: Vero Camacho MD : Gender: Male Weight (grams): 3365 g One Minute : 6 Five Minute : 7 General Health/Complaints: None Course: uncomplicated Lochia: Ceased Discharge: Normal Return to Menstruation/LMP: None Sexual Activity: Resumed without difficulty Bladder: Normal Bowels: no complaints of bowel problems Perineum/Wound: healing well Baby's Health: good Breast or bottle: breast feeding Feeding difficulties: None Post Blues: None control Plans: oral contraceptives Additional Issues: None PAST MEDICAL HISTORY Diagnosis Date Drug abuse and dependence (HCC) PAST SURGICAL HISTORY Procedure Laterality Date NONE PCHG CESARIAN DEL INCL POST CARE 01/14/2023 FAMILY HISTORY Problem Relation Age of Onset Alcohol/Drug Mother Alcohol/Drug Father Social History Tobacco Use Smoking status: Every Day Packs/day: 0.50 Types: Cigarettes Smokeless tobacco: Never Vaping Use Vaping Use: Never used Substance Use Topics Alcohol use: No Drug use: Yes Types: Marijuana, Amphetamines Comment: daily marajuana Current Outpatient Medications Medication Sig Norethindrone, Contraceptive, (MELBA) 0.35 mg tablet Take 1 tablet by mouth once daily. Blood Pressure Monitor 1 Each twice daily. (Patient not taking: Reported on 03/22/2023) ferrous sulfate 325 mg (65 mg iron) tablet Take 1 tablet by mouth once daily. (Patient not taking: Reported on 03/22/2023) ibuprofen (MOTRIN) 600 mg tablet Take 1 tablet by mouth every 6 hours. (Patient not taking: Reported on 03/22/2023) omega 5-rbb-cvq-fish oil (FISH OIL) 100-160-1,000 mg cap Take by mouth. (Patient not taking: Reported on 03/22/2023) vit,calc76/iron/folic (PNV 29-1 ORAL) Take 1 tablet by mouth once daily. (Patient not taking: Reported on 03/22/2023) No current facility-administered medications for this visit. ALLERGIES No Known Allergies Review of Systems Constitutional: Negative for fatigue, fever and unexpected weight change. HENT: Negative for congestion, sinus pressure and sneezing. Respiratory: Negative for cough, shortness of breath and wheezing. Cardiovascular: Negative for chest pain. Gastrointestinal: Negative for abdominal distention, abdominal pain, blood in stool, constipation, diarrhea, nausea and vomiting. Genitourinary: Negative for dyspareunia, dysuria, flank pain, frequency, menstrual problem, pelvic pain, urgency, vaginal bleeding, vaginal discharge and vaginal pain. Musculoskeletal: Negative for arthralgias, joint swelling and myalgias. Skin: Negative for rash. Neurological: Negative for dizziness, weakness and headaches. Psychiatric/Behavioral: Negative for behavioral problems and suicidal ideas. I have confirmed and edited as necessary, the PFSH and ROS obtained by others. OBJECTIVE: 03/22/23 0801 BP: 90/50 Weight: 129 lb (58.5 kg) Height: 5' 1 (1.549 m) Thyroid: normal to inspection and palpation Breast Exam: breasts symmetric, no dominant or suspicious mass, no skin or nipple changes, no axillary adenopathy. Abdomen: soft, non-tender, no masses, no hepatosplenomegaly, and no lymphadenopathy Incision: Dry and intact, without redness Perineum: deferred. Pelvic Exam: negative findings: deferred Bimanual Exam: deferred ASSESSMENT: normal post exam, needs annual exam. PLAN: RTC for annual exams and PRN gHTN: Bps normotensive today Any new medications given to pt. have been explained as to directions, reasons for prescribing and side effects. Oli Contreras DO documented in this encounter [facility] 01-17-2023 History of Past i llness Narrative Problem Noted Date Resolved Date Hypertension complicating pr egnancy, delivered-current hospitalization 01/17/2023 01/18/2023 Substance use 01/16/2023 01/17/2023 Overview: - history of methamphetamine use - care management consult pending Encounter for induction of labor 01/14/2023 01/15/2023 Overview: - GBS positive, PCN - Pitocin per protocol - Epidural prn - AROM prn with care elsewhere 01/16/2023 Overview: - Patient transferred care to [facility] from at 38 weeks - Records viewable in [facility] under Care Everywhere - All routine screening completed with exception of 1 hour GCT, which was never completed - Random accucheck on admission 133, will recheck in 2 hours Maternal gonorrhea in third trimester 01/05/2023 01/16/2023 Overview: - Positive gonorrhea screening in , now s/p treatment - MINNIE negative on 11/03/22 (viewable in Care Everywhere) GBS carrier 01/05/2023 01/16/2023 Overview: - GBS positive, penicillin while in labor documented as of this encounter (statuses as of 01/19/2023) [facility]05-30-2023 History of Past illness Narrative* Problem Noted Date Diagnosed Date Resolved Date Hypertension complicating pr egnancy, delivered-current hospitalization 01/17/20232022 Substance use 01/16/2023 01/17/2023 Overview: - history of methamphetamine use - care management consult pending Encounter for induction of labor 01/14/2023 01/15/2023 Overview: - GBS positive, PCN - Pitocin per protocol - Epidural prn - AROM prn with care elsewhere 01/14/2023 01/16/2023 Overview: - Patient transferred care to [facility] from at 38 weeks - Records viewable in [facility] under Care Everywhere - All routine screening completed with exception of 1 hour GCT, which was never completed - Random accucheck on admission 133, will recheck in 2 hours Maternal gonorrhea in third trimester 01/05/2023 01/16/2023 Overview: - Positive gonorrhea screening in , now s/p treatment - MINNIE negative on 11/03/22 (viewable in Care Everywhere) GBS carrier 01/05/2023 01/16/2023 Overview: - GBS positive, penicillin while in labor documented as of this encounter (statuses as of 03/22/2023) [facility] History of Past illness Narrative* Problem Noted Date Diagnosed Date Resolved Date Hypertension complicating pr egnancy, delivered-current hospitalization 01/17/20232022 Substance use 01/16/2023 01/17/2023 Overview: - history of methamphetamine use - care management consult pending Encounter for induction of labor 01/14/2023 01/15/2023 Overview: - GBS positive, PCN - Pitocin per protocol - Epidural prn - AROM prn with care elsewhere 01/14/2023 01/16/2023 Overview: - Patient transferred care to [facility] from at 38 weeks - Records viewable in [facility] under Care Everywhere - All routine screening completed with exception of 1 hour GCT, which was never completed - Random accucheck on admission 133, will recheck in 2 hours Maternal gonorrhea in third trimester 01/05/2023 01/16/2023 Overview: - Positive gonorrhea screening in , now s/p treatment - MINNIE negative on 11/03/22 (viewable in Care Everywhere) GBS carrier 01/05/2023 01/16/2023 Overview: - GBS positive, penicillin while in labor documented as of this encounter (statuses as of 12/08/2023) [facility]-30-[facility]23 Miscellaneous Notes* Telephone Encounter - Izzy Barron APRN.CNM - 01/17/2023 9:18 AM EDT Needs one week BP check for GHTN. JS left VM to call office Me [facility] History of Past illness Narrative* Problem Noted Date Resolved Date Substance use 01/16/2023 01/17/2023 Overview: - history of methamphetamine use - care management consult pending Encounter for induction of labor 01/14/2023 01/15/2023 Overview: - GBS positive, PCN - Pitocin per protocol - Epidural prn - AROM prn with care elsewhere 01/16/2023 Overview: - Patient transferred care to [facility] from at 38 weeks - Records viewable in [facility] under Care Everywhere - All routine screening completed with exception of 1 hour GCT, which was never completed - Random accucheck on admission 133, will recheck in 2 hours Maternal gonorrhea in third trimester 01/05/2023 01/16/2023 Overview: - Positive gonorrhea screening in , now s/p treatment - MINNIE negative on 11/03/22 (viewable in Care Everywhere) GBS carrier 01/05/2023 01/16/2023 Overview: - GBS positive, penicillin while in labor documented as of this encounter (statuses as of 01/17/2023) [facility]05-27-2023 NoteHNO ID: [id number] Author: Thea Wright APRN.MACHINE HOOP MAKER Service: Neonatology Author Type: Nurse Practitioner Type: Progress Notes Filed: 01/14/2023 4:39 PM Note Text: NICU PRIVATE DUTY NURSE Brief Note: I was asked by nursing to speak with this mother regarding breastmilk use. Mother and father were present at the bedside. I informed Noa that we cannot use her breastmilk, as she has a history of intravenous drug use during (12/22/22 urine toxicology positive for amphetamines and THC). Mother endorses most recent amphetamine use 01/07/23. She is currently in a treatment program with [place]. Mother was very tearful throughout our conversation. The father asked if she could still breastfeed, and I stated that we will allow neither breastmilk nor . Father was adamant that she be able to provide breastmilk. I stated that we would not use her breastmilk during this hospitalization, and that they could follow with their aircraft parts assembler regarding her breastmilk use as long as she remains in a treatment program (pending clean toxicology reports). Parents stated that they do not have a aircraft parts assembler; I told them that we will help them identify a aircraft parts assembler prior to discharge. Mother remained tearful; parents stated that I answered all of their questions. Thea Wright APRN.[facility]05-27-2023 NoteHNO ID: [id number] Author: Avery Cisse APRN.UNLOADER Service: Anesthesiology Author Type: Nurse Watch Repair Person Type: Anesthesia Procedure Notes Filed: 01/14/2023 11:44 AM Note Text: ANESTHESIOLOGY PROCEDURE NOTE Airway General Information Procedure Start Time/Medication Administration: 01/14/2023 11:22 AM Procedure End Time: 01/14/2023 11:23 AM Patient location during procedure: OR Timeout Performed Pre-procedure: timeout performed Consent Obtained: Yes Patient identity confirmed: arm band and patient Staffing UNLOADER: Avery Cisse APRN.UNLOADER Performed by: HAYDEE Indications and Patient Condition Indications for airway management: anesthesia Preoxygenated: yes anesthesia circuit Patient position: sniffing Method: rapid sequence Final Airway Details Final airway type: endotracheal airway Final Endotracheal Airway: ETT Cuffed: yes Successful intubation technique: video laryngoscopy Devices used: Hall Blade size: #3 ETT size (mm): 7.0 Measured from: lips Measurement (cm): 21 Placement verified by: capnometry Cormack-Lehane Classification: grade I - full view of glottis Number of attempts at approach: 1 Failed airway: no Unrecognized esophageal intubation: no Airway not difficult Comments Cords were clear of any aspirate SIGNATURE: Avery Cisse APRN.UNLOADER PATIENT NAME: Tamie Negron DATE: January 14, 2023 TIME: 11:41 AM [facility]: [id number] NoteHNO ID: [id number] Author: Paula Adler MD Service: Obstetrics Author Type: Resident Type: Progress Notes Filed: 01/14/2023 12:34 PM Note Text: Pitocin started at 1100 at 2mu. Cat I and reactive FHT since admission. FHT with prolonged deceleration to 80s x6 minutes starting at 1109. Patient repositioned multiple times. Fluid bolus started. Pitocin off. Patient moved to the OR for emergent section at 1115. FHT verified in OR with ultrasound and confirmed to be in 80s at 1118. Discussed with patient and decision was made to proceed with emergent primary section with betadine prep. Anesthesia was called to the room and the patient was placed under general anesthesia. See Operative report for further details. Paula Adler MD Pager # [phone] 01/14/2023 11:42 [facility] NoteHNO ID: [id number] Author: Oli Contreras, Service: ? Author Type: Physician Type: Progress Notes Filed: 01/05/2023 11:53 AM Note Text: SERVICE DATE: 01/05/2023 SERVICE TIME: 10:43 AM Subjective CHIEF COMPLAINT: New OB HPI: Patient is a 22 year old @ 38/0 wks GA w/ PAVAN of 01/19/2023 here to establish Obstetrical Care. is complicated by illicit drug use (Utox + for Amphetamines and Marijuana), Gonorrhea infection, and tobacco use. O+/Ab- HANDH: 11.5/ HIV non reactive Hep B nonreactive Syphilis non reactive Rubella immune GC/CT: negative 10/2022 UCx negative Pap NIL UTox: + Canabis, Amphetemines Aantomy US wnl 1 hr GTT never completed GBS positive Complaints: None was planned. OB History T0 L0 SAB0 IAB0 Ectopic0 Multiple0 Live Births0 1) EAB 2) EAB 3) EAB 4) Current Prior : never History of 4th degree laceration: No H/o delivery: None History of abnormal pap: No Prior treatment for cervical dysplasia: none. History of STDs: GC Tobacco use: Yes Caffeine use: No Drug use: Yes Alcohol use: No Multivitamin with Folic acid: Yes Occupation: None Gnosticist or heritage: No Would refuse blood transfusion if medically necessary: No No weight on file for this encounter. Patient BMI over 30? No Marital Status: Partner: Name: Sandra Age: 51 Occupation: [employer] Gender: male PAST MEDICAL HISTORY Diagnosis Date Drug abuse and dependence (HCC) PAST SURGICAL HISTORY Procedure Laterality Date NONE FAMILY HISTORY Problem Relation Age of Onset Alcohol/Drug Mother Alcohol/Drug Father Social History Tobacco Use Smoking status: Every Day Packs/day: 0.50 Types: Cigarettes Smokeless tobacco: Never Vaping Use Vaping Use: Never used Substance Use Topics Alcohol use: No Drug use: Yes Types: Marijuana, Amphetamines Comment: daily marajuana (Not in a hospital admission) ALLERGIES No Known Allergies Review of Systems Constitutional: Negative for fatigue, fever and unexpected weight change. HENT: Negative for congestion, sinus pressure and sneezing. Respiratory: Negative for cough, shortness of breath and wheezing. Cardiovascular: Negative for chest pain. Gastrointestinal: Negative for abdominal distention, abdominal pain, blood in stool, constipation, diarrhea, nausea and vomiting. Genitourinary: Negative for dyspareunia, dysuria, flank pain, frequency, menstrual problem, pelvic pain, urgency, vaginal bleeding, vaginal discharge and vaginal pain. Musculoskeletal: Negative for arthralgias, joint swelling and myalgias. Skin: Negative for rash. Neurological: Negative for dizziness, weakness and headaches. Psychiatric/Behavioral: Negative for behavioral problems and suicidal ideas. Objective PHYSICAL EXAM: BP 138/86 Ht 5' 1 (1.55m) Wt 158 lb (71.7kg) BMI 29.87 kg/(m2). Physical Exam Constitutional: General: She is not in acute distress. Appearance: Normal appearance. HENT: Head: Normocephalic and atraumatic. Cardiovascular: Rate and Rhythm: Normal rate and regular rhythm. Heart sounds: No murmur heard. Pulmonary: Effort: Pulmonary effort is normal. No respiratory distress. Breath sounds: Normal breath sounds. No wheezing. Abdominal: General: Abdomen is flat. Bowel sounds are normal. There is no distension. Palpations: Abdomen is soft. Tenderness: There is no guarding. Neurological: General: No focal deficit present. Mental Status: She is alert. Mental status is at baseline. Skin: General: Skin is warm. Findings: No erythema or lesion. Psychiatric: Mood and Affect: Mood normal. Assessment AND Plan ASSESSMENT/PLAN: 1. Encounter for supervision of other normal , unspecified trimester - ICD9: V22.1, ICD10: Z34.80 (primary diagnosis) - O+/Ab- - 1 hr GTT never completed - GBS positive, for PCN ppx - Tdap completed - PPBC: Declined - Planning for breast feeding - IOL scheduled for 01/13/2023 2. 38 weeks gestation of - ICD9: V22.2, ICD10: Z3A.38 3. Intravenous drug use during in third trimester - ICD9: 648.43, 305.90, ICD10: O99.323 - Utox + Amphetamines and Cannabinoids - 12/21/2022 growth US with EFW 32%, AC 58% - Currently scheduled to start Rehab with [facility] - T today reactive - Will plan to continue with weekly testing 4. Maternal gonorrhea in third trimester - ICD9: 647.13, ICD10: O98.213 - s/p Treatment - Recent negative MINNIE 5. Tobacco use disorder - ICD9: 305.1, ICD10: F17.200 - Cessation encouraged. - Physiologic and physical aspects of tobacco addiction as well as strategies for quitting were discussed. Oli Osiel [facility]01-26-2023 NoteAccession #: [id number] Date of Procedure: 09/15/2022 Pathologist: [facility], Cytology Date Reported: 09/21/2022 Date Received: 09/15/2022 Submitting Physician: TAYE SANDRA MD FINAL CYTOLOGICAL INTERPRETATION A. THINPREP PAP CERVICAL: Specimen Adequacy: SATISFACTORY FOR EVALUATION. Quality Indicator: Absence of endocervical/transformation zone component. Quality Indicator: Partially obscuring inflammation. General Categorization: NEGATIVE FOR INTRAEPITHELIAL LESION OR MALIGNANCY. Descriptive Interpretation: SHIFT IN VAGINAL KHANG SUGGESTIVE OF BACTERIAL VAGINOSIS. QC review performed at [facility], [address] [place] [address] This specimen has been analyzed by the [employer] System ([employer] an automated imaging and review system, which assists the laboratory in evaluating cells on ThinPrep Pap tests. Following automated imaging, selected burris from every slide were reviewed by a mental hygienist and/or pathologist. Electronically Signed Out By [facility], Cytology//CRR/LSM By the signature on this report, the individual or group listed as making the Final Interpretation/Diagnosis certifies that they have reviewed this case. Diagnostic [place] [address] Educational Note: Cervical cytology is a screening procedure primarily for squamous cancers and precursors and has associated false-negative and false-positive results as evidenced by published data. Your patient?s test should be interpreted in this context, together with patient?s history and clinical findings. Regular sampling and follow-up of unexplained clinical signs and symptoms are recommended to minimize false negative results. Clinical History Date of Last Menstrual Period: Unknown Other Clinical Conditions: GC / CT Testing Ordered Trichomonas Vaginalis Testing Ordered Additional Testing: GC + Chlamydia + Trichomononas Clinical Diagnosis History: screening encounter - (Z36.9); Screening for human papillomavirus - (Z11.51); Screening for STD (sexually transmitted disease) - (Z11.3) Source of Specimen A: THINPREP PAP CERVICAL [facility] Department of Pathology [address] [place], [place] [address]LVKindred Hospital at WayneComment on above:Performed By: #### HCGQU #### [address] [id number] History of Present illness Narrative* Patient is a 21-year-old female who presents with fever last week. She is been living with someone who is positive for Covid. She wants to make sure she is not positive at this time. She does not have a fever any longer. Her fever was as high as 102 at home. * ROS: * General: No decreased responsiveness, confusion, no decreased appetite or fluids, + fever, chills, +body aches * Neuro: + headache, no lightheadedness or dizziness, no numbness or tingling * ENMT: No nosebleed, no sore throat, no nasal congestion, no loss of taste and smell * Eyes: No discharge or redness * Skel: No joint pain, no neck or back pain * Cardiac: No chest pain or palpitations * Resp: No shortness of breath, wheezing no cough, no hemoptysis * GI: No abdominal pain, nausea no vomiting no diarrhea * : No dysuria, urgency or frequency, no flank pain * Skin: no rash or wounds * Heme: no bruising, bleeding or petechiae * Psych: no suicidal or homicidal ideations * PMH: denies, healthy * Social History: no tobacco * Family History: Noncontributory * Physical Exam: * General: Vital signs stable, Pt is alert, no acute distress * Eyes: Conjunctiva normal, PERRL, EOMs intact * HENMT: Normocephalic, atraumatic, external ears and nose normal, no scars or masses. No mastoid tenderness. Trachea is midline. No meningeal signs, negative Kernig and Brudzinski, moves neck freely. No sinus tenderness * Resp: Respiratory effort is normal, no retractions, no stridor. Lungs CTA, no wheezes or rhonchi * CV: Heart is regular rate and rhythm. * Skin: No evidence of trauma, skin is warm and dry. No rashes, lesions or ulcers. * Skel: full range of motion of upper and lower extremities. * Neuro: Normal gait, CN II-XII intact, no motor or sensory changes. * Psych: Alert and oriented 3, judgment is appropriate, normal mood and affect * MDM: Pt with COVID symptoms, will swab and send to [facility]. Given information about COVID. Pt was also given a work note. Patient appears well no acute distress, vital signs are stable. Pt is not hypoxic, pulse ox 99% RA. We discussed reasons to return to the emergency room including but not limited to chest pain, shortness of breath, worsening symptoms or any other concerns. Patient verbalizes understanding. Plan for discharge * Impression: * [facility]* Diagnosis Intravenous drug use during in third trimester [facility] Diagnosis Encounter for routine follow-up- Primary Routine follow-up Encounter for initial prescription of contraceptive pills General counseling for prescription of oral contraceptives documented in this encounter [facility] note* Diagnosis Encounter to establish care- Primary Other reasons for seeking consultation Encounter for immunization Need for other specified prophylactic vaccination against single bacterial disease Tobacco abuse Tobacco use disorder documented in this encounter [facility] note* Diagnosis Vagina bleeding- Primary Other specified noninflammatory disorder of vagina Status post elective Unspecified legally induced without mention of complication Constipation, unspecified constipation type documented in this encounter [facility]No assessment information availableWMcKitrick Hospital Work Phone: Reason for referral (narrative)No reason for referral information availableWMcKitrick Hospital Work Phone: Summary Purpose Family History No Family History Records FoundNo Family History Records FoundNo Family History Records FoundNo Family History Records FoundNo Family History Records FoundNo Family History Records FoundNo Family History Records FoundNo Family History Records Found Advance Directives No Advanced Directives Records FoundDocuments on File Type Date Recorded Patient [employer] S[employer] Expl anation 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 Ceftriaxone reconstituted per directions with lidocaine. 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 DATE CREATED AUTHOR AUTHOR'S ORGANIZ ATION 11/15/2022 [facility] DATE CREATED AUTHOR AUTHOR'S ORGANIZ ATION 12/09/2022 [facility] DATE CREATED AUTHOR AUTHOR'S ORGANIZ ATION 01/14/2023 [facility] DATE CREATED AUTHOR AUTHOR'S ORGANIZ ATION 01/29/2023 [facility] DATE CREATED AUTHOR AUTHOR'S ORGANIZ ATION 12/13/2023 [facility] DATE CREATED AUTHOR AUTHOR'S ORGANIZ ATION 01/29/[address] [facility] DATE CREATED AUTHOR AUTHOR'S ORGANIZ ATION 05/12/2025 [facility] Source Comments (unrecognize d section and content) In the event this informatio n is protected by the Federal Confidentiality of Alcohol and Drug Abuse Patient Records regulations: The Federal rules restrict any use of the information to criminally investigate or prosecute any alcohol or drug abuse patient.[facility] HospitalIn the event this information is protected by the Federal Confidentiality of Alcohol and Drug Abuse Patient Records regulations: The Federal rules restrict any use of the information to criminally investigate or prosecute any alcohol or drug abuse patient.[facility] HospitalIn the event this information is protected by the Federal Confidentiality of Alcohol and Drug Abuse Patient Records regulations: The Federal rules restrict any use of the information to criminally investigate or prosecute any alcohol or drug abuse patient.[facility] HospitalIn the event this information is protected by the Federal Confidentiality of Alcohol and Drug Abuse Patient Records regulations: The Federal rules restrict any use of the information to criminally investigate or prosecute any alcohol or drug abuse patient.[facility] HospitalIn the event this information is protected by the Federal Confidentiality of Alcohol and Drug Abuse Patient Records regulations: The Federal rules restrict any use of the information to criminally investigate or prosecute any alcohol or drug abuse patient.[facility] HospitalIn the event this information is protected by the Federal Confidentiality of Alcohol and Drug Abuse Patient Records regulations: The Federal rules restrict any use of the information to criminally investigate or prosecute any alcohol or drug abuse patient.[facility] HospitalIn the event this information is protected by the Federal Confidentiality of Alcohol and Drug Abuse Patient Records regulations: The Federal rules restrict any use of the information to criminally investigate or prosecute any alcohol or drug abuse patient.[facility] HospitalIn the event this information is protected by the Federal Confidentiality of Alcohol and Drug Abuse Patient Records regulations: The Federal rules restrict any use of the information to criminally investigate or prosecute any alcohol or drug abuse patient.[facility] HospitalIn the event this information is protected by the Federal Confidentiality of Alcohol and Drug Abuse Patient Records regulations: The Federal rules restrict any use of the information to criminally investigate or prosecute any alcohol or drug abuse patient.[facility] HospitalIn the event this information is protected by the Federal Confidentiality of Alcohol and Drug Abuse Patient Records regulations: The Federal rules restrict any use of the information to criminally investigate or prosecute any alcohol or drug abuse patient.[facility] Reason for Visit (unrecogniz ed section and content) Reason Comments Abstract New OB transfer Reason Comments Appointment Needs ONE week BP [place]. JS left message to call office Reason Comments Us Procedure Specialty Diagnoses / Procedures Referred By Contac t Referred To Contact [facility] Diagnoses Intravenous drug use during in third trimester Procedures BIOPHYSICAL PROFILE US WHI BIOPHYSICAL PROFILE NON-STRESS TESTING Oli Contreras DO [address] [place] [address] [facility] [address] [place] [address] Referral ID Status Reason Start Date Expiration Date V isits Requested Visits Authorized [id number] Closed Auto-Generate d Referral 01/05/2023 01/05/2024 10 1 Reason Comments Early Reason Comments Establish Care Reason Comments Smoking Cessation Reason Comments No Show No Show #1 Reason Onset Date Comments ED Outreach 10/23/2024 [facility] 10/22/2024 Reason Comments Referral Information Gynecology Reason Comments ED Follow-up Reason Comments Addiction Problem Requesting detox. En dorses methamphetamine, ETOH, and marijuana all last used 01/26/25. Care Teams (unrecognized sec tion and content) Weld Engineer Relationship Specialty Start Date End Date Mike Cochran DO [address] [id number] PCP - General Internal Medicine 12/07/23 Ratna Tavarez MD 1 [place], [place] [id number] PCP Resident 12/07/23 Weld Engineer Relationship Specialty Start Date End Date Mike Cochran DO [address] [place] [address] [id number] PCP - General Internal Medicine 12/07/23 Ratna Tavarez MD 1 [place], [place] [id number] PCP Resident 12/07/23 Weld Engineer Relationship Specialty Start Date End Date Mike Cochran DO [address] [id number] PCP - General Internal Medicine 12/07/23 Ratna Tavarez MD 1 [place], [place] [id number] PCP Resident 12/07/23 Weld Engineer Relationship Specialty Start Date End Date Mike Cochran DO [address] [id number] PCP - General Internal Medicine 12/07/23 Ratna Tavarez MD 1 [place], [place] [id number] PCP Resident 12/07/23 Weld Engineer Relationship Specialty Start Date End Date Mike Cochran DO [address] [id number] PCP - General Internal Medicine 12/07/23 Ratna Tavarez MD 1 [place], [place] [id number] PCP Resident 12/07/23 Weld Engineer Relationship Specialty Start Date End Date Mike Cochran DO [address] [id number] PCP - General Internal Medicine 12/07/23 Ratna Tavarez MD 1 [place] [address] PCP Resident 12/07/23 Team Status: Active Member Role/Relationship Status Dates Myrna Phillips VSC, DIVISION HEAD-C Primary Care Provider Activ e Team Status: Inactive Member Role/Relationship Status Dates Myrna Phillips VSC, DIVISION HEAD-C Primary Care Provider Activ e Start: April 03, 2025 End: April 03, 2025 Myrna GOSS, DIVISION HEAD-C Attending Provider Active Start: April 03, 2025 End: April 03, 2025 Goals (unrecognized section and content) Goals may be documented in a n alternate section FOR RECORDS PERTAINING TO PATIENTS WHO ARE OR HAVE BEEN ENROLLED IN A CHEMICAL DEPENDENCY/SUBSTANCEABUSE PROGRAM, SOME INFORMATION MAY BE OMITTED. This clinical summary was aggregated from multiple sources. Caution should be exercised in using it in the provision of clinical care. This summary normalizes information from multiple sources, and as a consequence, information in this document may materially change the coding, format and clinical context of patient data. In addition, data may be omitted in some cases. CLINICAL DECISIONS SHOULD BE BASED ON THE PRIMARY CLINICAL RECORDS. [employer] provides no warranty or guarantee of the accuracy or completeness of information in this document.
[2025-06-09 18:55] LABS: Hematocrit 34.0 % (37-47); Hemoglobin 11.5 g/dL (12.0-15.0); Immature Granulocytes Count 0.080 X10^3/uL (0.0-0.0); Mean Corp Hgb Conc 33.8 g/dL (32-36); Mean Corpuscular Volume 92.4 fL (81-99); Mean Platelet Vol. 8.8 fl (6.2-12.0); NRBC Flagged by Analyzer 0 % (0-5); Platelet Count 317 K/mm3 (150-450); RBC Distribution Width CV 11.6 % (11.6-14.6); RBC Distribution Width SD 39.4 fl (35.1-43.9); Red Blood Count 3.68 M/mm3 (4.2-5.4); White Blood Count 14.2 K/mm3 (4.4-11.0)
[2025-06-09 18:56] LABS: Internal QC Validated? YES +Cl - CLEAR BKGD
[2025-06-09 18:57] LABS: Pregnancy, Urine Negative Negative; Record Kit Lot#,Urine Preg 980607
[2025-06-09 19:14] LABS: AST(SGOT) 40 U/L (<=31); Alanine Aminotransfer ALT/SGPT 46 U/L (<=34); Albumin, Serum 4.3 g/dL (3.5-5.0); Alkaline Phosphatase 79 U/L (35-104); Anion Gap 12 (5-15); BUN 17 mg/dL (4-19); BUN/Creat Ratio 20.0 RATIO (10-20); Calcium,Total 9.5 mg/dL (7.6-11.0); Carbon Dioxide 23.8 mmol/L (21.0-32.0); Chloride 104 mmol/L (98-108); Estimated Creatinine Clearance 85.03 ml/min (50-250); Globulin 2.4 g/dL (2.2-4.2); Glucose 95 mg/dL (70-99); Potassium 3.5 mmol/L (3.3-5.1)
[2025-06-09 19:15] LABS: Alcohol, Blood (Medical)-Serum < 10.1 mg/dL (<=10.0)
[2025-06-09 19:54] LABS: Barbiturate Urine NEGATIVE (< 200 ng/mL); Benzodiazepine Urine NEGATIVE (< 200 ng/mL); PCP Urine NEGATIVE (< 25 ng/mL); THC Urine PRESUMPTIVE POSITIVE (< 50 ng/mL)
--- NOTE | 2025-06-09 21:18 | PCM.HP.STD ---
HPI - General General Date of Admission: 06/09/25 Date of Service: 06/09/25 Chief Complaint: Alcohol detox HPI Narrative ISABELA GUADARRAMA, is a 25 F who presents to the emergency room with request for alcohol detoxification. Patient states that she last had a buzz ball earlier today. She lives in the [facility] housing for rehabilitation and in order to stay there needs to be clean from a substance abuse standpoint. She also admits to marijuana use. She denies any methylphenidate use as she had a past history of doing so. Patient admits to frequent alcohol consumption but is unclear if she is a daily drinker as her story has changed between ER physician and myself and health social work professor. Patient does feel agitated and irritable and is concerned about her own status and trying to rehabilitate herself so that she can regain custody of her child. Patient denies any fevers chills, nausea vomiting diarrhea present time she will be admitted for alcohol detoxification and placed on [facility] protocol [facility] Medical History (Updated 06/09/25 @ 21:[address] Jeramy Hobson MD) Anxiety Home Medications ?Medication ?Instructions ?Recorded ?Last Taken ?Type fluoxetine 10 mg capsule 10 mg PO DAILY 06/09/25 Unknown History hydroxyzine HCl 25 mg tablet 25 mg PO 4X/DAY PRN anxiety 06/09/25 Unknown History Allergy/AdvReac Type Severity Reaction Status Date / Time No Known Allergies Allergy Verified 06/09/25 17:42 Social History Smoking Status: Current every day smoker tobacco type: cigarettes and e-cigarettes ROS Constitutional Constitutional: Denies chills or fever(s) Eyes Eyes: Denies blurry vision ENT HEENT: Denies abnormal hearing Cardiovascular Cardiovascular: Denies chest pain Gastrointestinal Gastrointestinal: Denies abdominal pain Musculoskeletal Musculoskeletal: Denies back pain Integumentary Integumentary: Denies dry skin Neurologic Neurologic: Denies abnormal speech Psychiatric Psychiatric: Reports anxiety; Denies suicidal ideation Vital Signs Vital Signs Vital Signs: 06/09/25 17:42 06/09/25 18:40 06/09/25 19:00 Temperature 97.5 F L Temperature Source Temporal Pulse Rate 98 84 80 Respiratory Rate 18 16 16 Blood Pressure 134/81 H 132/81 H 115/69 Blood Pressure Mean 98 98 84 Pulse Ox 99 99 100 Oxygen Delivery Method Room Air Room Air 06/09/25 20:00 06/09/25 20:16 06/09/25 21:00 Temperature 97.5 F L Temperature Source Pulse Rate 94 94 82 Respiratory Rate 16 16 16 Blood Pressure 101/55 L 101/55 L 101/55 L Blood Pressure Mean 70 70 70 Pulse Ox 100 100 99 Oxygen Delivery Method Room Air Weight Weight: 133 lb 8 oz Body Mass Index (BMI) 25.2 Physical Exam Const oriented x3 General Appearance: cooperative and well developed HEENT normocephalic and head/scalp atraumatic Eyes PERRL and EOMs intact bilaterally Neck no lymphadenopathy Lymph Lymphatic: no lymphadenopathy noted Resp normal respiratory effort Cardio regular rate, regular rhythm, S1 normal heart sound and S2 normal heart sound GI normal to inspection, nondistended, normoactive bowel sounds Extremity normal capillary refill Skin General Skin Exam: no breakdown Neuro no focal motor deficits and no sensory deficits noted Psych cooperative Attitude: agitated Mood & Affect: anxious Results Lab / Micro Data 06/09/25 18:43 06/09/25 18:43 Labs: Laboratory Results - last 24 hr 06/09/25 18:10: Urine Test Negative, Urine Opiates Screen NEGATIVE, U Buprenorphine Qual NEGATIVE, Ur Oxycodone Screen NEGATIVE, Urine Methadone Screen NEGATIVE, Urine Fentanyl Screen NEGATIVE, Ur Barbiturates Screen NEGATIVE, Ur Phencyclidine Scrn NEGATIVE, Ur Amphetamines Screen NEGATIVE, U Benzodiazepines Scrn NEGATIVE, Urine Cocaine Screen NEGATIVE, U Cannabinoids Screen PRESUMPTIVE POSITIVE 06/09/25 18:43: WBC 14.2 H, RBC 3.68 L, Hgb 11.5 L, Hct 34.0 L, MCV 92.4, MCH 31.3, MCHC 33.8, RDW Std Deviation 39.4, RDW Coeff of Pamela 11.6, Plt Count 317, MPV 8.8, Immature Gran % (Auto) 0.600, Neut % (Auto) 73.2 H, Lymph % (Auto) 20.0, [place] % (Auto) 4.7, Eos % (Auto) 1.1, Baso % (Auto) 0.4, Absolute Neuts (auto) 10.4 H, Absolute Lymphs (auto) 2.84, Nucleated RBC % 0, Sodium 140, Potassium 3.5, Chloride 104, Carbon Dioxide 23.8, Anion Gap 12, BUN 17, Creatinine 0.83, Estim Creat Clear Calc 85.03, Est GFR (MDRD) Non-Af 99, BUN/Creatinine Ratio 20.0, Glucose 95, Calcium 9.5, Total Bilirubin 0.15, AST 40 H, ALT 46 H, Alkaline Phosphatase 79, Total Protein 6.7, Albumin 4.3, Globulin 2.4, Albumin/Globulin Ratio 1.8, Ethyl Alcohol < 10.1 Assessment & Plan Assessment/Plan (1) Alcohol abuse: (2) Marijuana abuse: PLAN: Plan 1. Alcohol abuse requesting detoxification?admit patient to general medical floor Place patient on [facility] protocol consult case management for DC management 2. Marijuana abuse?encourage cessation patient is living in the [facility] and would encourage counseling for further management of her anxiety and healthier alternative choices 3. CODE STATUS full verified Charges/Coding Visit Charges Inpatient E&M: 32631 Init Hosp L2
--- NOTE | 2025-06-09 21:29 | CM.ED ---
Social Work Patient admitted to ED for alcohol detox. Treatment navigator notified of admission. Faith Ko, UNIT CONTROLLER, COMMERCIAL [employer]ES INSURANCE AGENT
--- OUTSIDE RECORDS SUMMARY | 2025-06-09 21:42 | XMS RPT_ITS | CCD ---
Author Organization [facility] Inform ion [facility] STRUCTURAL ENGINEER [facility] Care Team Providers Care Oil Expeller Name Role Phone IMCA Unavailable Unavailable ELSY [...] MD TAYE SANDRA Referring Unavailable MD TAYE SADNRA Referring Unavailable Dr. Frank Hills Attending Unav [...] Primary Care Unavailable Daysi MENDEZ, Ratna Unavailable [phone] Mike Cochran DO Primary Care Provider Mike Cochran DO Primary Care Provider [phone] Unavailable Primary Care Provider UnavailMyrna Bergman Primary [...] as dir ected every 24 hours. omega 4-vdn-wkg-fish oil (FISH OIL) 100-160-1,000 mg cap (8 [...] B/C Profile VIII 05-07-2025 HEPATITIS INTER Normal [facility] Comment on above: Result Comment: TEST RESULTS [...] to indicate HCV infection. TESTING PERFORMED AT [facility]. ORIGINAL REPORT ON FILE IN LAB CONTAINS ADDITIONAL TEST SITE INFORMATION. Performed By: #### L 509.8002, L3890.6006, L3000.0800 #### [facility] [address] [place], [address] L3410.9992on 04-07-2025 [facility]. COMMENT Normal . [facility] Comment on above: Order Comment: ALEX BAÑUELOS RMT [id number] [facility] VG+ Result Comment: Test Ordered: [id number] Nuab Vaginitis Plus (VG+) Test(s) 211666- Atopobium vaginae; 565478- BVAB 2; 584176- Megasphaera 1 was developed and its performance characteristics determined by [facility]. It has not been cleared or approved by the Food and Drug Administration. Test(s) 063916-Pncildq albicans, ROHIT; 426328- Radha glabrata, ROHIT was developed and its [...] Reference Range: Negative Performed at: = - [address] [id number] Rnfa: Martha Gutierrez MD, Phone: [phone] Performed at: - [facility] [id number] Rnfa: Skyler Oneal PhD, Phone: [phone] Performed By: #### L 3410.9992, L7400.0353 #### [facility] [address] [place], [place], [address] PAP I-G w/rfx hrHPV-Aptimaon 04-07-2025 ADEQ Comment Normal . [facility] Comment on above: Order Comment: Speci men Comment: [id number] Specimen Comment: Source.............Cervix Specimen Comment: LMP / Prev Treat...[id number]=[id number] Specimen Comment: No. of containers..01 ThinPrep Vial Result Comment: Sati sfactory for evaluation. Endocervical and/or squamous metaplastic cells (endocervical component) are present. Performed By: #### L 3410.9992, L7400.0353 #### [facility] [address] [place], [place], [address] COMM . Normal . [facility] Comment on above: Order Comment: Speci men Comment: [id number] Specimen Comment: Source.............Cervix Specimen Comment: LMP / Prev Treat...IDI=[id number] Specimen Comment: No. of containers..01 ThinPrep Vial Performed By: #### L 3410.9992, L7400.0353 #### [facility] [address] [place], [place], [address] COMMENT Comment Normal . [facility] Comment on above: Order Comment: Speci men Comment: [id number] Specimen Comment: Source.............Cervix Specimen Comment: LMP / Prev Treat...EOF=[id number] Specimen Comment: No. of containers..01 ThinPrep Vial Result Comment: This liquid based ThinPrep(R) pap test was screened with the use of an image guided system. Performed By: #### L 3410.9992, L7400.0353 #### [facility] [address] [place], [place], [address] DIAG Comment Normal . [facility] Comment on above: Order Comment: Speci men Comment: [id number] Specimen Comment: Source.............Cervix Specimen Comment: LMP / Prev Treat...[id number]=[id number] Specimen Comment: No. of containers..01 ThinPrep Vial Result Comment: NEGA TIVE FOR INTRAEPITHELIAL LESION OR MALIGNANCY. Performed By: #### L 3410.9992, L7400.0353 #### [facility] [address] [place], [place], [address] HPV RFLX Comment Normal . [facility] Comment on above: Order Comment: Speci men Comment: [id number] Specimen Comment: Source.............Cervix Specimen Comment: LMP / Prev Treat...[id number] Specimen Comment: No. of containers..01 ThinPrep Vial Result Comment: The HPV DNA reflex criteria were not met with this specimen result therefore, no HPV testing was performed. Performed at: [address] [id number] Rnfa: Martha Gutierrez MD, Phone: [phone] Performed By: #### L 3410.9992, L7400.0353 #### [facility] [address] [place], [place], [address] PAPSMR Comment Normal . [facility] Comment on above: Order Comment: Speci men Comment: [id number] Specimen Comment: Source.............Cervix Specimen Comment: LMP / Prev Treat...[id number]=[id number] Specimen Comment: No. of containers..01 ThinPrep Vial [...] Performed By: #### L 3410.9992, L7400.0353 #### [facility] [address] [place], [place], [address] PERFORM Comment Normal . [facility] Comment on above: Order Comment: Speci men Comment: [id number] Specimen Comment: Source.............Cervix Specimen Comment: LMP / Prev Treat...[id number]=[id number] Specimen Comment: No. of containers..01 ThinPrep Vial Result Comment: Kirsten Groves, Panel Gluer (ASCP) Performed By: #### L 3410.9992, L7400.0353 #### [facility] [address] [place], [place], [address] Cervical or vagninal specime n microscopic examination by cytology stain (reported asOrdered By: [facility] Myrna Phillips on 04-03-2025 Cytology report Cyto stain Doc (Cvx/Vag) Comment . [facility] Comment on above: The Pap smear is a s creening test designed to aid in thedetection of premalignant and malignant conditions of theuterine cervix. It is not a diagnostic procedure andshould not be used as the sole means of detecting cervicalcancer. Both false-positive and false-negative reports dooccur. HIVon 04-03-2025 HIV Non-Reactive Normal Nonreactive [facility] Comment on above: Result Comment: Non- Reactive Reactive Repeatedly reactive samples must be confirmed according to CDC recommended confirmatory algorithms. The subresults for either HIVAG or AHIV can be used as an aid in the selection of the confirmation algorithm for reactive samples. Send out specimens with Reactive results to [facility] for confirmation. Order the HIV antibody detection and differentiation: lc#[id number] Performed By: #### L 509.8002, L3890.6006, L3000.0800 #### [facility] [address] [place], [address] Laboratory - CytologyOrdered By: [facility] Myrna Phillips on 04-03-2025 Panel Gluer Cyto stain Nom (Cvx/Vag) [ID] Comment . [facility] Comment on above: Herminio Vail tologist (ASCP) Laboratory - Miscellaneous t estsOrdered By: [facility] Myrnadouglas Phillips on 04-03-2025 Service comment (Unsp spec) [Interp] . . [facility] No Panel InformationOrdered By: [facility] Myrnadouglas Phillips on 04-03-2025 HIV (1&2) Antibody Non-Reactive Nonreactive [facility] Comment on above: Non-ReactiveReactive Repeatedly reactive samples must be confirmed according to CDC recommended confirmatory algorithms. The subresults for either HIVAG or AHIV can be used as an aid in the selection of the confirmation algorithm for reactive samples.Send out specimens with Reactive results to [facility] for confirmation.Order the HIV antibody detection and differentiation: lc#[id number] Pap Smear Specimen Adequacy Comment . [facility] Comment on above: Satisfactory for cecilio luation. Endocervical and/or squamous metaplasticcells (endocervical component) are present. Syphilis Antibodieson 2024 Syphilis Abs Non-Reactive Normal Nonreactive [facility] Comment on above: Performed By: #### L 509.8002, L3890.6006, L3000.0800 #### [facility] [address] [place], [address] ED Nursing Noteon 01-27-2025 ED Nursing Note Pt states she wants to leave, Tobin XIAO notified. Pt refused vitals. [facility] ED Provider Noteon ED Provider Note I did not participat e in care of this patient Hunter Gallardo APRN - KENYETTA 01/28/25 0629 [facility] CNPNon 12-12-2023 CNPN Telephone (WIQ) CHIARAARIANNATAMIE ([id number]) 2000 F Date Time Provider Department 12/12/23 PERNELL HOSKINS During your visit today, we recorded the following information about you: Pernell Hoskins, [facility] ED 12/12/2023 8:24 AM Signed Smoking Cessation Navigation Outcome of contact: Left Message Comments: A voicemail has been left for this patient regarding Tobacco Cessation support options. If this patient has any further questions they can email us at or call us at [phone]. [employer] Mannequin Sander And Finisher/Smoking Cessation Navigator: [facility] Allergies As of Date: 12/12/2023 (No Known [...] tablet by mouth once daily. - omega 2-vpa-ges-fish oil (FISH OIL) 100-160-1,000 mg cap Take [...] Encounter Status:Closed by PERNELL HOSKINS on 12/12/23 [facility] ANES PRE-OPon 01-14-2023 ANES PRE-OP HNO ID: [id number] Author: Avery Cisse APRN.POWER LINE INSTALLER AND REPAIRER Service: Anesthesiology Author Type: Nurse End Packer Type: Anesthesia Preprocedure Evaluation Filed: 01/14/2023 11:46 AM Note Text: OB ANESTHESIA PRE-PROCEDURE ASSESSMENT PATIENT NAME: Tamie Negron : 2000 [facility] ANES SHOP MECHANIC: Previous OB anesthetic: None No OB [...] and consent discussed: yes. Patient / Responsible Democrat agrees to proceed: yes Patient / Surrogate [...] Types: Marijuana, Amphetamines Comment: daily josee omega 8-agm-omz-fish oil (FISH OIL) 100-160-1,000 mg cap, Take [...] 2023 TIME: 11:44 AM : 2000 Normal [facility] CBC panel Auto (Bld)on 01-14 Erythrocyte distribution width (RBC) [Ratio] 13.3 % Normal 11.5-15.0 [facility] Comment on above: Order Comment: Speci nisreen Type: BLOOD SPECIMEN Ordering Facility: [facility] Address: [address] [place] [address] Performed By: #### 5 8410-2 #### [facility] CLIA [id number] [address] [place] [address] [place] Hematocrit (Bld) [Volume fraction] 28.7 % Low 36.0-46.0 [facility] Comment on above: Order Comment: Speci men Type: BLOOD SPECIMEN Ordering Facility: [facility] Address: [address] [place] [address] Performed By: #### 5 8410-2 #### [facility] CLIA [id number] [address] [place] Hemoglobin (Bld) [Mass/Vol] 9.4 g/dL Low 11.5-15.5 [facility] Comment on above: Order Comment: Speci men Type: BLOOD SPECIMEN Ordering Facility: [facility] Address: [address] [place] [address] Performed By: #### 5 8410-2 #### [facility] CLIA [id number] [address] [place] MCH (RBC) [Entitic mass] 30.4 pg Normal 26.0-34.0 [facility] Comment on above: Order Comment: Speci men Type: BLOOD SPECIMEN Ordering Facility: [facility] Address: [address] [place] [address] Performed By: #### 5 8410-2 #### [facility] CLIA [id number] [address] MCHC (RBC) [Mass/Vol] 32.8 g/dL Normal 30.5-36.0 [facility] Comment on above: Order Comment: Speci men Type: BLOOD SPECIMEN Ordering Facility: [facility] Address: [address] [place] [address] Performed By: #### 5 8410-2 #### [facility] CLIA [id number] [address] MCV (RBC) [Entitic vol] 92.9 fL Normal 80.0-100.0 [facility] Comment on above: Order Comment: Speci men Type: BLOOD SPECIMEN Ordering Facility: [facility] Address: [address] [place] [address] Performed By: #### 5 8410-2 #### [facility] CLIA [id number] [address] Nucleated RBC (Bld) [#/Vol] 10*3/uL Normal <0.01 [facility] Comment on above: Order Comment: Speci men Type: BLOOD SPECIMEN Ordering Facility: [facility] Address: [address] [place] [address] Performed By: #### 5 8410-2 #### [facility] CLIA [id number] [address] Platelet mean volume (Bld) [Entitic vol] 10.4 fL Normal 9.0-12.7 [facility] Comment on above: Order Comment: Speci men Type: BLOOD SPECIMEN Ordering Facility: [facility] Address: [address] [place] [address] Performed By: #### 5 8410-2 #### [facility] CLIA [id number] [address] [place] Platelets (Bld) [#/Vol] 283 10*3/uL Normal 150-400 [facility] Comment on above: Order Comment: Speci men Type: BLOOD SPECIMEN Ordering Facility: [facility] Address: [address] [address] Performed By: #### 5 8410-2 #### [facility] CLIA [id number] [address] RBC (Bld) [#/Vol] 3.09 10*6/uL Low 3.90-5.20 [facility] Comment on above: Order Comment: Speci men Type: BLOOD SPECIMEN Ordering Facility: [facility] Address: [address] [address] Performed By: #### 5 8410-2 #### [facility] CLIA [id number] [address] WBC (Bld) [#/Vol] 12.02 10*3/uL High 3.70-11.00 [facility] Comment on above: Order Comment: Speci men Type: BLOOD SPECIMEN Ordering Facility: [facility] Address: [address] [place] [address] Performed By: #### 5 8410-2 #### [facility] CLIA [id number] [address] Erythrocyte distribution width (RBC) [Ratio] 13.4 % Normal 11.5-15.0 [facility] Comment on above: Order Comment: Speci men Type: BLOOD SPECIMEN Ordering Facility: [facility] Address: [address] [place] [address] Performed By: #### 5 8410-2 #### [facility] CLIA [id number] [address] Hematocrit (Bld) [Volume fraction] 31.4 % Low 36.0-46.0 [facility] Comment on above: Order Comment: Speci men Type: BLOOD SPECIMEN Ordering Facility: [facility] Address: [address] [place] [address] Performed By: #### 5 8410-2 #### [facility] CLIA [id number] [address] Hemoglobin (Bld) [Mass/Vol] 10.1 g/dL Low 11.5-15.5 [facility] Comment on above: Order Comment: Speci men Type: BLOOD SPECIMEN Ordering Facility: [facility] Address: [address] [place] [address] Performed By: #### 5 8410-2 #### [facility] CLIA [id number] [address] MCH (RBC) [Entitic mass] 29.3 pg Normal 26.0-34.0 [facility] Comment on above: Order Comment: Speci men Type: BLOOD SPECIMEN Ordering Facility: [facility] Address: [address] [place] [address] Performed By: #### 5 8410-2 #### [facility] CLIA [id number] [address] MCHC (RBC) [Mass/Vol] 32.2 g/dL Normal 30.5-36.0 [facility] Comment on above: Order Comment: Speci men Type: BLOOD SPECIMEN Ordering Facility: [facility] Address: [address] [place] [address] Performed By: #### 5 8410-2 #### [facility] CLIA [id number] [address] MCV (RBC) [Entitic vol] 91.0 fL Normal 80.0-100.0 [facility] Comment on above: Order Comment: Speci men Type: BLOOD SPECIMEN Ordering Facility: [facility] Address: [address] [place] [address] Performed By: #### 5 8410-2 #### [facility] CLIA [id number] [address] Nucleated RBC (Bld) [#/Vol] 10*3/uL Normal <0.01 [facility] Comment on above: Order Comment: Speci men Type: BLOOD SPECIMEN Ordering Facility: [facility] Address: [address] [place] [address] Performed By: #### 5 8410-2 #### [facility] CLIA [id number] [address] Platelet mean volume (Bld) [Entitic vol] 10.9 fL Normal 9.0-12.7 [facility] Comment on above: Order Comment: Speci men Type: BLOOD SPECIMEN Ordering Facility: [facility] Address: [address] [place] [address] Performed By: #### 5 8410-2 #### [facility] CLIA [id number] [address] [place] Platelets (Bld) [#/Vol] 144 10*3/uL Low 150-400 [facility] Comment on above: Order Comment: Speci men Type: BLOOD SPECIMEN Ordering Facility: [facility] Address: [address] [place] [address] Performed By: #### 5 8410-2 #### [facility] CLIA [id number] [address] RBC (Bld) [#/Vol] 3.45 10*6/uL Low 3.90-5.20 [facility] Comment on above: Order Comment: Speci men Type: BLOOD SPECIMEN Ordering Facility: [facility] Address: [address] [place] [address] Performed By: #### 5 8410-2 #### [facility] CLIA [id number] [address] WBC (Bld) [#/Vol] 9.50 10*3/uL Normal 3.70-11.00 [facility] Comment on above: Order Comment: Speci men Type: BLOOD SPECIMEN Ordering Facility: [facility] Address: [address] [place] [address] Performed By: #### 5 8410-2 #### [facility] CLIA [id number] [address] CONFIRM BLOOD TYPEon 023 ABO O Normal [facility] Comment on above: Order Comment: Speci men Type: BLOOD SPECIMENOrdering Facility: [facility] Address: [address] [place] [address] Performed By: #### C ONABO ####[facility]ANKCLIA [id number] [address] Rh Nom (Bld) Positive Normal [facility] Comment on above: Order Comment: Speci men Type: BLOOD SPECIMENOrdering Facility: [facility] Address: [place] [facility] [place] [address] Performed By: #### C ONABO ####[facility] BANKCLIA [id number] [address] Fibrinogen PPP-mCncon 2022 Fibrinogen Coag (PPP) [Mass/Vol] 305 mg/dL Normal 200-400 [facility] Comment on above: Order Comment: Speci men Type: BLOOD SPECIMEN Ordering Facility: [facility] Address: [address] [place] [address] Performed By: #### 3 255-7 #### [facility] CLIA [id number] [address] HISTORY PHYSICALon HISTORY PHYSICAL HNO ID: [id number] Author: Paula Adler MD Service: Obstetrics Author Type: Resident Type: HANDP Filed: 01/14/2023 10:28 AM Note Text: Attestation signed by Vero Camacho MD at 01/14/2023 8:47 PM Attending Note [...] 01/07. Patient is currently in rehab at [facility]. POST DELIVERY CONTRACEPTION: Discussed post-delivery [...] use: Yes Types: Marijuana, Amphetamines Comment: daily [facility] Obstetric History T0 L0 SAB0 IAB0 Ectopic0 [...] 1 tablet by mouth once daily. omega 2-qdc-rbv-fish oil (FISH OIL) 100-160-1,000 mg cap 01/13/2023 [...] adequate MONITORING/ASSESSMENT: (more content not included)... Normal [facility] OPERATIVE NOon 01-14-2023 OPERATIVE NO HNO ID: [id number] Author: Alla Rascon DO Service: Obstetrics Author [...] Camacho MD OB OPERATIVE REPORT LOG ID: [id number] Surgery/Procedure Date: 01/14/2023 Incision/Procedure Start Time: 11:23 AM Incision Close/Procedure End Time: 12:11 PM Surgeon(s)/Procedurali st(s) and Automotive [employer] Coordinator(s): Surgeon(s) and Role: * Vero Camacho MD [...] Information for the patient's : Jimmy Negron [[id number]] Type: , Low Transverse Operative Findings: Weight: [...] in imb (more content not included)... Normal [facility] TYPE + SCREEN PRENATALon ABO O Normal [facility] Comment on above: Order Comment: Speci men Type: BLOOD SPECIMENOrdering Facility: [facility] Address: [address] [address] Performed By: #### T SPN ####[facility] BLO[facility] BANKCLIA [id number] [address] STATES OF [facility] HISTORICAL AB SCR STATUS Negative Normal [facility] Comment on above: Order Comment: Speci men Type: BLOOD SPECIMENOrdering Facility: [facility] Address: [address] [address] Performed By: #### T SPN ####[facility] BLO[facility] BANKCLIA [id number] [place] [address] [facility] Rh Nom (Bld) Positive Normal [facility] Comment on above: Order Comment: Speci men Type: BLOOD SPECIMENOrdering Facility: [facility] Address: [address] [place] [address] Performed By: #### T SPN ####[facility] BLOOD BANKCLIA [id number] [place] [id number] [facility] TYPE AND SCREEN EXPIRATION 01/17/2023 23:59 Normal [facility] Comment on above: Order Comment: Speci men Type: BLOOD SPECIMENOrdering Facility: [facility] Address: [address] [place] [address] Performed By: #### T SPN ####[facility] BLOOD [facility] [id number] [place] [id number] [facility] BIOPHYSICAL PROFILE US WHIon 01-11-2023 [facility] CNPNon 12-30-2022 CNPN Telephone (OBGWMA) TAMIE NEGRON ([id number]) 2000 F Date Time Provider Department 12/30/22 [...] Status:Closed by VERNA ARANDA on 12/30/22 Normal [facility] AMPHETAMINE CONFIRM,URINEon 12-27-2022 AMPHETAMINES 787 ng/mL Normal [facility] Comment on above: Result Comment: Cons istent [...] developed and its performance characteristics determined by [employer]. It has not been cleared or approved by the [place] Food and Drug Administration. This test was performed in a CLIA certified laboratory and is intended for clinical purposes. Performed By: #### H [facility] #### [address] [address] MDA <200 Normal [facility] Comment on above: Performed By: #### H [facility] #### [address] [address] MDEA <200 Normal [facility] Comment on above: Performed By: #### H [facility] #### [address] [address] MDMA <200 Normal [facility] Comment on above: Performed By: #### H [facility] #### [address] [address] METHAMPHETAMINE 1798 ng/mL Normal [facility] Comment on above: Result Comment: Cons istent with use of a drug containing methamphetamine. Methamphetamine is metabolized to amphetamine. Amphetamine and methamphetamine exist in d- and l-isomeric forms. These forms are not distinguished by this test. Isomeric separation is available separately for an additional charge. Performed By: #### H [facility] #### [address] [address] PHENTERMINE <200 Normal [facility] Comment on above: Result Comment: Perf ormed By: [employer] [address] [place] [id number] Hot Metal Car Operator: Arunlfo Connell MD, PhD Performed By: #### H [facility] #### [address] [address] CANNABINOID CONFIRM.URINEon 12-26-2022 48-XUF-1-CARBOXY-THC 88 ng/mL Normal [facility] Comment on above: Result Comment: INTE RPRETIVE INFORMATION: THC Metabolite, Urine, Quantitative Methodology: Quantitative Liquid Chromatography-Tandem Mass Spectrometry Positive cutoff: 15 ng/mL For medical purposes only; not valid for forensic use. The drug analyte detected in this assay, 9-carboxy THC, is a metabolite of nbluw-4-ykscdccnqdqerrjtzjyo (THC). Detection of 9-carboxy THC suggests use [...] developed and its performance characteristics determined by [employer]. It has not been cleared or approved by the [place] Food and Drug Administration. This test was performed in a CLIA certified laboratory and is intended for clinical purposes. Performed By: [employer] [address] [place] [id number] Hot Metal Car Operator: Arnulfo Connell MD, PhD Performed By: #### H CGQU #### [place] [address] DRUG SCREEN,URINE WITH REFLE X TO CONFIRMATIONon 12-23-2022 AMPHETAMINE SCREEN,U Positive Abnormal NEGATIVE [facility] Comment on above: Result Comment: CUTO FF LEVEL: 500 NG/ML Cross-reactivity has been reported with high concentrations of the following drugs: buproprion, chloroquine, chlorpromazine, ephedrine, mephentermine, fenfluramine, phentermine, phenylpropanolamine, pseudoephedrine, and propranolol. Performed By: #### H CGQU #### [place] [address] BARBITURATES SCREEN,U Negative Normal NEGATIVE [facility] Comment on above: Result Comment: CUTO FF LEVEL: 200 NG/ML Performed By: #### H CGQU #### [place] [address] BENZODIAZEPINES SCREEN,U Negative Normal NEGATIVE [facility] Comment on above: Result Comment: CUTO FF LEVEL: 200 NG/ML Performed By: #### H CGQU #### [place] [address] CANNABINOIDS SCREEN,U Positive Abnormal NEGATIVE [facility] Comment on above: Result Comment: CUTO FF LEVEL: 50 NG/ML Performed By: #### H CGQU #### [place] [address] COCAINE METABOLITE SCREEN,U Negative Normal NEGATIVE [facility] Comment on above: Result Comment: CUTO FF LEVEL: 150 NG/ML Performed By: #### H CGQU #### [place] [address] DRUG SCREEN COMMENT SEE BELOW Normal [facility] Comment on above: Result Comment: Drug screen [...] directors. Performed By: #### H CGQU #### [place] [address] FENTANYL SCREEN,URINE Negative Normal NEGATIVE [facility] Comment on above: Result Comment: CUTO FF LEVEL: 5 NG/ML Performed By: #### H CGQU #### [place] [address] METHADONE SCREEN,U Negative Normal NEGATIVE [facility] Comment on above: Result Comment: CUTO FF LEVEL: 150 NG/ML The metabolite Z-pesvi-mxbuwwqstduzte (LAAM) is not detected by this method in concentrations that would be found in the urine of patients on LAAM therapy. Performed By: #### H CGQU #### [place] [address] OPIATES SCREEN,U Negative Normal NEGATIVE [facility] Comment on above: Result Comment: CUTO FF LEVEL: 300 NG/ML The opiate screen does not detect fentanyl, meperidine, or tramadol. Oxycodone is not consistently detected (refer to Oxycodone Screen, Urine result). Performed By: #### H CGQU #### [place] [address] OXYCODONE SCREEN,U Negative Normal NEGATIVE [facility] Comment on above: Result Comment: CUTO FF LEVEL: 100 NG/ML This test will accurately detect both oxycodone and oxymorphone. Performed By: #### H CGQU #### [facility] [address] [place] [address] PCP SCREEN,U Negative Normal NEGATIVE [facility] Comment on above: Result Comment: CUTO FF LEVEL: 25 NG/ML Cross-reactivity has been reported with dextromethorphan. Performed By: #### H CGQU #### [facility] [address] [place] [id number] GROUP B STREP SCREENon 12-22 GROUP B STREP SCREEN PATIENT: TAMIE NEGRON LOCATION: [facility] [place] BILL#: [id number] : 89 AGE: SEX: F ORDERED BY: TAYE SANDRA SOURCE: VAG-RECTAL COLLECTED: 12/22/22 10:33 ANTIBIOTICS AT SUNG.: RECEIVED : 12/23/22 03:13 SITE: R E S U L T S GROUP B STREP SCREEN FINAL 12/25/22 11:33 ISOLATE1 : Group B streptococcus ISOLATED Normal [facility] Comment on above: Performed By: #### H CGQU #### [address] [address] Laboratory - Drug toxicology on 12-22-2022 Amphetamine (U) [Mass/Vol] 787 ng/mL [facility] Work Phone: Comment on above: Consistent with [...] developed and its performance characteristics determined by [employer]. It has not been cleared or approved by the US Food and Drug Administration. This test was performed in a CLIA certified laboratory and is intended for clinical purposes. Amphetamines Screen Ql (U) Positive Abnormal NEGATIVE [facility] Work Phone: Comment on above: CUTOFF LEVEL: 500 NG /ML Cross-reactivity has been reported with high concentrations of the following drugs: buproprion, chloroquine, chlorpromazine, ephedrine, mephentermine, fenfluramine, phentermine, phenylpropanolamine, pseudoephedrine, and propranolol. Barbiturates Screen Ql (U) Negative NEGATIVE [facility] Work Phone: Comment on above: CUTOFF LEVEL: 200 NG /ML Benzodiazepines Ql (U) Negative NEGATIVE [facility] Work Phone: Comment on above: CUTOFF LEVEL: 200 NG /ML Benzoylecgonine Screen Ql (U) Negative NEGATIVE [facility] Work Phone: Comment on above: CUTOFF LEVEL: 150 NG /ML Cannabinoids Screen Ql (U) Positive Abnormal NEGATIVE [facility] Work Phone: Comment on above: CUTOFF LEVEL: 50 NG/ ML Carboxy tetrahydrocannabinol (U) [Mass/Vol] 88 ng/mL [facility] Work Phone: Comment on above: INTERPRETIVE INFORMA TION: THC Metabolite, Urine, QuantitativeMethodology: Quantitative Liquid Chromatography-Tandem Mass SpectrometryPositive cutoff: 15 ng/mLFor medical purposes only; not valid for forensic use.The drug analyte detected in this assay, 9-carboxy THC, is a metabolite of huumw-1-gxfxizkvusqejfelqivj (THC). Detection of 9-carboxy THC suggests use [...] developed and its performance characteristics determined by [employer]. It has not been cleared or approved by the US Food and Drug Administration. This test was performed in a CLIA certified laboratory and is intended for clinical purposes.Performed By: [employer] [place] [id number] Director: Arnulfo Connell MD, PhD Methadone Screen Ql (U) Negative NEGATIVE [facility] Work Phone: Comment on above: CUTOFF LEVEL: 150 NG /ML The metabolite U-uhyzw-nawxpmioclipvi (LAAM) is not detected by this method in concentrations that would be found in the urine of patients on LAAM therapy. Methamphetamine (U) [Mass/Vol] 1798 ng/mL [facility] Work Phone: Comment on above: Consistent with use of a drug containing methamphetamine. Methamphetamine is metabolized to amphetamine. Amphetamine and methamphetamine exist in d- and l-isomeric forms. These forms are not distinguished by this test. Isomeric separation is available separately for an additional charge. Methylenedioxyamphetam ine (U) [Mass/Vol] <200 [facility] Work Phone: Methylenedioxyethylamp hetamine (U) [Mass/Vol] <200 [facility] Work Phone: Methylenedioxymethamph etamine (U) [Mass/Vol] <200 [facility] Work Phone: Opiates Screen Ql (U) Negative NEGATIVE [facility] Work Phone: Comment on above: CUTOFF LEVEL: 300 NG /ML The opiate screen does not detect fentanyl, meperidine, or tramadol. Oxycodone is not consistently detected (refer to Oxycodone Screen, Urine result). oxyCODONE+oxyMORphone Screen Ql (U) Negative NEGATIVE [facility] Work Phone: Comment on above: CUTOFF LEVEL: 100 NG /ML This test will accurately detect both oxycodone and oxymorphone. Phencyclidine Ql (U) Negative NEGATIVE [facility] Work Phone: Comment on above: CUTOFF LEVEL: 25 NG/ ML Cross-reactivity has been reported with dextromethorphan. Phentermine Confirm (U) [Mass/Vol] <200 [facility] Work Phone: Comment on above: Performed By: TOM Frausto [email or web address] [place] [address] [id number] Director: Arnulfo Connell MD, PhD Laboratory - Microbiology an d Antimicrobial susceptibilityon 12-22-2022 Bacteria identified Aer cx Nom (Genital specimen) Abnormal [facility] Funding Phone: No Panel Informationon 12-22 Negative NEGATIVE [facility] [employer] Funding Phone: Comment on above: CUTOFF LEVEL: 5 NG/M L SEE BELOW [facility] [employer] Funding Phone: Comment on above: Drug screen results [...] medical directors. No Panel Informationon 12-21 Normal [facility] Work Phone: AMPHETAMINE CONFIRM,URINEon 12-13-2022 AMPHETAMINES 598 ng/mL Normal [facility] Comment on above: Result Comment: Cons istent [...] developed and its performance characteristics determined by [employer]. It has not been cleared or approved by the US Food and Drug Administration. This test was performed in a CLIA certified laboratory and is intended for clinical purposes. Performed By: #### A MPC1 #### [address] [address] MDA <200 Normal [facility] Comment on above: Performed By: #### A MPC1 #### [facility] [address] [place] [address], [place] [address] MDEA <200 Normal [facility] Comment on above: Performed By: #### A MPC1 #### [facility] [address] [place] [address], [place] [address] MDMA <200 Normal [facility] Comment on above: Performed By: #### A MPC1 #### [facility] [address] [place] [address], [place] [address] METHAMPHETAMINE 2391 ng/mL Normal [facility] Comment on above: Result Comment: Cons istent with use of a drug containing methamphetamine. Methamphetamine is metabolized to amphetamine. Amphetamine and methamphetamine exist in d- and l-isomeric forms. These forms are not distinguished by this test. Isomeric separation is available separately for an additional charge. Performed By: #### A MPC1 #### [address] [place] [address] PHENTERMINE <200 Normal [facility] Comment on above: Result Comment: Perf ormed By: [employer] [address] [place] [address] Hot Metal Car Operator: Arnulfo Connell MD, PhD Performed By: #### A MPC1 #### [facility] [address] [address] CANNABINOID CONFIRM.URINEon 12-13-2022 83-DPG-4-CARBOXY-THC 89 ng/mL Normal [facility] Comment on above: Result Comment: INTE RPRETIVE INFORMATION: THC Metabolite, Urine, Quantitative Methodology: Quantitative Liquid Chromatography-Tandem Mass Spectrometry Positive cutoff: 15 ng/mL For medical purposes only; not valid for forensic use. The drug analyte detected in this assay, 9-carboxy THC, is a metabolite of dxcoo-4-myyyaitvaaxnisfeeizu (THC). Detection of 9-carboxy THC suggests use [...] developed and its performance characteristics determined by [employer]. It has not been cleared or approved by the US Food and Drug Administration. This test was performed in a CLIA certified laboratory and is intended for clinical purposes. Performed By: [employer] [address] [place] [id number] [employer] Car Operator: Arnulfo Connell MD, PhD Performed By: #### Raul ANCN #### [facility] [address] [place] [address] DRUG SCREEN,URINE WITH REFLE X TO CONFIRMATIONon 12-09-2022 AMPHETAMINE SCREEN,U Positive Abnormal NEGATIVE [facility] Comment on above: Result Comment: CUTO FF LEVEL: 500 NG/ML Cross-reactivity has been reported with high concentrations of the following drugs: buproprion, chloroquine, chlorpromazine, ephedrine, mephentermine, fenfluramine, phentermine, phenylpropanolamine, pseudoephedrine, and propranolol. Performed By: #### D RUGR #### [facility] [address] [place] [address] BARBITURATES SCREEN,U Negative Normal NEGATIVE [facility] Comment on above: Result Comment: CUTO FF LEVEL: 200 NG/ML Performed By: #### D RUGR #### [facility] [address] [place] [address] BENZODIAZEPINES SCREEN,U Negative Normal NEGATIVE [facility] Comment on above: Result Comment: CUTO FF LEVEL: 200 NG/ML Performed By: #### D RUGR #### [facility] [address] [place] [address] CANNABINOIDS SCREEN,U Positive Abnormal NEGATIVE [facility] Comment on above: Result Comment: CUTO FF LEVEL: 50 NG/ML Performed By: #### D RUGR #### [facility] [address] [place] [address] COCAINE METABOLITE SCREEN,U Negative Normal NEGATIVE [facility] Comment on above: Result Comment: CUTO FF LEVEL: 150 NG/ML Performed By: #### D RUGR #### [facility] [address] [place] [address] DRUG SCREEN COMMENT SEE BELOW Normal [facility] Comment on above: Result Comment: Drug screen [...] directors. Performed By: #### D RUGR #### [facility] [address] [place] [address] FENTANYL SCREEN,URINE Negative Normal NEGATIVE [facility] Comment on above: Result Comment: CUTO FF LEVEL: 5 NG/ML Performed By: #### D RUGR #### [facility] [address] [place] [address] METHADONE SCREEN,U Negative Normal NEGATIVE [facility] Comment on above: Result Comment: CUTO FF LEVEL: 150 NG/ML The metabolite N-mqbel-qlymwmsjkgpsgq (LAAM) is not detected by this method in concentrations that would be found in the urine of patients on LAAM therapy. Performed By: #### D RUGR #### [facility] [address] [place] [id number] OPIATES SCREEN,U Negative Normal NEGATIVE [facility] Comment on above: Result Comment: CUTO FF LEVEL: 300 NG/ML The opiate screen does not detect fentanyl, meperidine, or tramadol. Oxycodone is not consistently detected (refer to Oxycodone Screen, Urine result). Performed By: #### D RUGR #### [facility] [address] [place] [id number] OXYCODONE SCREEN,U Negative Normal NEGATIVE [facility] Comment on above: Result Comment: CUTO FF LEVEL: 100 NG/ML This test will accurately detect both oxycodone and oxymorphone. Performed By: #### D RUGR #### [facility] [address] [place] [id number] PCP SCREEN,U Negative Normal NEGATIVE [facility] Comment on above: Result Comment: CUTO FF LEVEL: 25 NG/ML Cross-reactivity has been reported with dextromethorphan. Performed By: #### D RUGR #### [facility] [address] [place] [id number] Laboratory - Drug toxicology on 12-08-2022 Amphetamine (U) [Mass/Vol] 598 ng/mL [facility] Work Phone: Comment on above: Consistent with [...] developed and its performance characteristics determined by [employer]. It has not been cleared or approved by the US Food and Drug Administration. This test was performed in a CLIA certified laboratory and is intended for clinical purposes. Amphetamines Screen Ql (U) Positive Abnormal NEGATIVE [facility] [employer] Funding Phone: Comment on above: CUTOFF LEVEL: 500 NG /ML Cross-reactivity has been reported with high concentrations of the following drugs: buproprion, chloroquine, chlorpromazine, ephedrine, mephentermine, fenfluramine, phentermine, phenylpropanolamine, pseudoephedrine, and propranolol. Barbiturates Screen Ql (U) Negative NEGATIVE [facility] [employer] Funding Phone: Comment on above: CUTOFF LEVEL: 200 NG /ML Benzodiazepines Ql (U) Negative NEGATIVE [facility] Work Phone: Comment on above: CUTOFF LEVEL: 200 NG /ML Benzoylecgonine Screen Ql (U) Negative NEGATIVE [facility] [employer] Funding Phone: Comment on above: CUTOFF LEVEL: 150 NG /ML Cannabinoids Screen Ql (U) Positive Abnormal NEGATIVE [facility] [employer] Funding Phone: Comment on above: CUTOFF LEVEL: 50 NG/ ML Carboxy tetrahydrocannabinol (U) [Mass/Vol] 89 ng/mL [facility] Work Phone: Comment on above: INTERPRETIVE INFORMA TION: THC Metabolite, Urine, QuantitativeMethodology: Quantitative Liquid Chromatography-Tandem Mass SpectrometryPositive cutoff: 15 ng/mLFor medical purposes only; not valid for forensic use.The drug analyte detected in this assay, 9-carboxy THC, is a metabolite of wumhe-8-xwhqgfvbudhvweloubag (THC). Detection of 9-carboxy THC suggests use [...] developed and its performance characteristics determined by [employer]. It has not been cleared or approved by the US Food and Drug Administration. This test was performed in a CLIA certified laboratory and is intended for clinical purposes.Performed By: [employer] [place] [address] [id number] Director: Arnulfo Connell MD, PhD Methadone Screen Ql (U) Negative NEGATIVE [facility] Work Phone: Comment on above: CUTOFF LEVEL: 150 NG /ML The metabolite U-tcvrq-thvlfmjdrdihvs (LAAM) is not detected by this method in concentrations that would be found in the urine of patients on LAAM therapy. Methamphetamine (U) [Mass/Vol] 2391 ng/mL [facility] Work Phone: Comment on above: Consistent with use of a drug containing methamphetamine. Methamphetamine is metabolized to amphetamine. Amphetamine and methamphetamine exist in d- and l-isomeric forms. These forms are not distinguished by this test. Isomeric separation is available separately for an additional charge. Methylenedioxyamphetam ine (U) [Mass/Vol] <200 [facility] Work Phone: Methylenedioxyethylamp hetamine (U) [Mass/Vol] <200 [facility] Work Phone: Methylenedioxymethamph etamine (U) [Mass/Vol] <200 [facility] Work Phone: Opiates Screen Ql (U) Negative NEGATIVE [facility] Work Phone: Comment on above: CUTOFF LEVEL: 300 NG /ML The opiate screen does not detect fentanyl, meperidine, or tramadol. Oxycodone is not consistently detected (refer to Oxycodone Screen, Urine result). oxyCODONE+oxyMORphone Screen Ql (U) Negative NEGATIVE [facility] Work Phone: Comment on above: CUTOFF LEVEL: 100 NG /ML This test will accurately detect both oxycodone and oxymorphone. Phencyclidine Ql (U) Negative NEGATIVE [facility] Work Phone: Comment on above: CUTOFF LEVEL: 25 NG/ ML Cross-reactivity has been reported with dextromethorphan. Phentermine Confirm (U) [Mass/Vol] <200 [facility] Work Phone: Comment on above: Performed By: TOM Frausto [id number] [place] [id number] Director: Arnulfo Connell MD, PhD No Panel Informationon 12-08 Negative NEGATIVE [facility] Work Phone: Comment on above: CUTOFF LEVEL: 5 NG/M L SEE BELOW [facility] Work Phone: Comment on above: Drug screen [...] be directed to the laboratory medical directors. Purchasing Officer Noteon 12-08 Purchasing Officer Note Current Meds Fish Oil 1000 MG [...] phone number to call back. Niecy Watkins LAND CLEARER LEAD AUDITOR. Signatures Electronically signed by : ALEX Philippe; Dec 08 2022 3:56PM EST (Author) Normal [employer] AMPHETAMINE CONFIRM,URINEon 11-07-2022 AMPHETAMINES 86 ng/mL Normal [facility] Comment on above: Result Comment: Cons istent [...] developed and its performance characteristics determined by [employer]. It has not been cleared or approved by the US Food and Drug Administration. This test was performed in a CLIA certified laboratory and is intended for clinical purposes. Performed By: #### T +S #### [facility] [address] [place] [address] MDA <200 Normal [facility] Comment on above: Performed By: #### T +S #### [facility] [address] [place] [address] MDEA <200 Normal [facility] Comment on above: Performed By: #### T +S #### [facility] [address] [place] [address] MDMA <200 Normal [facility] Comment on above: Performed By: #### T +S #### [facility] [address] [place] [address] METHAMPHETAMINE 590 ng/mL Normal [facility] Comment on above: Result Comment: Cons istent with use of a drug containing methamphetamine. Methamphetamine is metabolized to amphetamine. Amphetamine and methamphetamine exist in d- and l-isomeric forms. These forms are not distinguished by this test. Isomeric separation is available separately for an additional charge. Performed By: #### T +S #### [facility] [address] [place] [address] PHENTERMINE <200 Normal [facility] Comment on above: Result Comment: Perf ormed By: [employer] [address] [place] [address] Hot Metal Car Operator: Arnulfo Connell MD, PhD Performed By: #### T +S #### [facility] [address] [place] [address] CANNABINOID CONFIRM.URINEon 11-07-2022 19-TJN-4-CARBOXY-THC 56 ng/mL Normal [facility] Comment on above: Result Comment: INTE RPRETIVE INFORMATION: THC Metabolite, Urine, Quantitative Methodology: Quantitative Liquid Chromatography-Tandem Mass Spectrometry Positive cutoff: 15 ng/mL For medical purposes only; not valid for forensic use. The drug analyte detected in this assay, 9-carboxy THC, is a metabolite of hzuue-0-ghyidqoeykihwymjshim (THC). Detection of 9-carboxy THC suggests use [...] developed and its performance characteristics determined by [employer]. It has not been cleared or approved by the US Food and Drug Administration. This test was performed in a CLIA certified laboratory and is intended for clinical purposes. Performed By: [employer] [address] [place] [address] Hot Metal Car Operator: Arnulfo Connell MD, PhD Performed By: #### C ANCN #### [address] [address] DRUG SCREEN,URINE WITH REFLE X TO CONFIRMATIONon 11-04-2022 AMPHETAMINE SCREEN,U Positive Abnormal NEGATIVE [facility] Comment on above: Result Comment: CUTO FF LEVEL: 500 NG/ML Cross-reactivity has been reported with high concentrations of the following drugs: buproprion, chloroquine, chlorpromazine, ephedrine, mephentermine, fenfluramine, phentermine, phenylpropanolamine, pseudoephedrine, and propranolol. Performed By: #### H CGQU #### [facility] [address] [place] [address] BARBITURATES SCREEN,U Negative Normal NEGATIVE [facility] Comment on above: Result Comment: CUTO FF LEVEL: 200 NG/ML Performed By: #### H CGQU #### [facility] [address] [place] [address], [place] [address] BENZODIAZEPINES SCREEN,U Negative Normal NEGATIVE [facility] Comment on above: Result Comment: CUTO FF LEVEL: 200 NG/ML Performed By: #### H CGQU #### [address] [address] CANNABINOIDS SCREEN,U Positive Abnormal NEGATIVE [facility] Comment on above: Result Comment: CUTO FF LEVEL: 50 NG/ML Performed By: #### H CGQU #### [facility] [address] [place] [address] COCAINE METABOLITE SCREEN,U Negative Normal NEGATIVE [facility] Comment on above: Result Comment: CUTO FF LEVEL: 150 NG/ML Performed By: #### H CGQU #### [address] [address] DRUG SCREEN COMMENT SEE BELOW Normal [facility] Comment on above: Result Comment: Drug screen [...] directors. Performed By: #### H CGQU #### [place] [address] FENTANYL SCREEN,URINE Negative Normal NEGATIVE [facility] Comment on above: Result Comment: CUTO FF LEVEL: 5 NG/ML Performed By: #### H CGQU #### [place] [address] METHADONE SCREEN,U Negative Normal NEGATIVE [facility] Comment on above: Result Comment: CUTO FF LEVEL: 150 NG/ML [facility] metabolite W-vhpzl-gmxcgnpiqxtnpv (LAAM) is not detected by this method in concentrations that would be found in the urine of patients on LAAM therapy. Performed By: #### H CGQU #### [place] [address] OPIATES SCREEN,U Negative Normal NEGATIVE [facility] Comment on above: Result Comment: CUTO FF LEVEL: 300 NG/ML The opiate screen does not detect fentanyl, meperidine, or tramadol. Oxycodone is not consistently detected (refer to Oxycodone Screen, Urine result). Performed By: #### H CGQU #### [place] [address] OXYCODONE SCREEN,U Negative Normal NEGATIVE [facility] Comment on above: Result Comment: CUTO FF LEVEL: 100 NG/ML This test will accurately detect both oxycodone and oxymorphone. Performed By: #### H CGQU #### [place] [address] PCP SCREEN,U Negative Normal NEGATIVE [facility] Comment on above: Result Comment: CUTO FF LEVEL: 25 NG/ML Cross-reactivity has been reported with dextromethorphan. Performed By: #### H CGQU #### [place] [address] GC + CHLAMYDIA BY AMPLIFIED DETECTIONon 11-04-2022 CHLAMYDIA TRACH.,AMPLIFIED Negative Normal Negative [facility] Comment on above: Result Comment: The APTIMA Combo 2 assay is FDA-approved for Chlamydia trachomatis and Neisseria gonorrhoeae testing on female endocervical and vaginal swabs, ThinPrep liquid pap samples, male urine samples and urethral swabs. Performance characteristics for Chlamydia trachomatis and Neisseria gonorrhoeae testing on specific zeh-VZE-dugforid sample types (female urine samples) have been validated by [facility]. This laboratory is certified by CLIA to perform high complexity testing. Samples from all other sites are not validated for this method. Performed By: #### H CGQU #### [address] [address] N.GONORRHEA,AMPLIFIED Negative Normal Negative [facility] Comment on above: Result Comment: The APTIMA Combo 2 assay is FDA-approved for Chlamydia trachomatis and Neisseria gonorrhoeae testing on female endocervical and vaginal swabs, ThinPrep liquid pap samples, male urine samples and urethral swabs. Performance characteristics for Chlamydia trachomatis and Neisseria gonorrhoeae testing on specific kdk-QPN-qrezofmd sample types (female urine samples) have been validated by [facility]. This laboratory is certified by CLIA to perform high complexity testing. Samples from all other sites are not validated for this method. Performed By: #### H CGQU #### [address] [address] GC + CHLAMYDIA BY AMPLIFIED DETECTIONon 11-03-2022 Lab Specimen Source Urine Normal [facility] Comment on above: Performed By: #### H CGQU #### [address] [address] GC + Chlamydia By Amplified Detectionon 11-03-2022 C. trachomatis rRNA ROHIT+probe Ql (Unsp spec) Negative Negative [facility] Work Phone: Comment on above: The APTIMA Combo 2 a ssay is FDA-approved for Chlamydia trachomatis and Neisseria gonorrhoeae testing on female endocervical and vaginal swabs, ThinPrep liquid pap samples, male urine samples and urethral swabs. Performance characteristics for Chlamydia trachomatis and Neisseria gonorrhoeae testing on specific wqq-MTJ-pcuznpxo sample types (female urine samples) have been validated by [facility]. This laboratory is certified by CLIA to perform high complexity testing. Samples from all other sites are not validated for this method. N. gonorrhoeae rRNA ROHIT+probe Ql (Unsp spec) Negative Negative [facility] Work Phone: Comment on above: SOURCE: Urine The AP JESSICA Combo 2 assay is FDA-approved for Chlamydia trachomatis and Neisseria gonorrhoeae testing on female endocervical and vaginal swabs, ThinPrep liquid pap samples, male urine samples and urethral swabs. Performance characteristics for Chlamydia trachomatis and Neisseria gonorrhoeae testing on specific gzr-EDW-vdinqlnw sample types (female urine samples) have been validated by [facility]. This laboratory is certified by CLIA to perform high complexity testing. Samples from all other sites are not validated for this method. Laboratory - Drug toxicology on 11-03-2022 Amphetamine (U) [Mass/Vol] 86 ng/mL [facility] Work Phone: Comment on above: Consistent with [...] developed and its performance characteristics determined by [employer]. It has not been cleared or approved by the US Food and Drug Administration. This test was performed in a CLIA certified laboratory and is intended for clinical purposes. Amphetamines Screen Ql (U) Positive Abnormal NEGATIVE [facility] Work Phone: Comment on above: CUTOFF LEVEL: 500 NG /ML Cross-reactivity has been reported with high concentrations of the following drugs: buproprion, chloroquine, chlorpromazine, ephedrine, mephentermine, fenfluramine, phentermine, phenylpropanolamine, pseudoephedrine, and propranolol. Barbiturates Screen Ql (U) Negative NEGATIVE [facility] Work Phone: Comment on above: CUTOFF LEVEL: 200 NG /ML Benzodiazepines Ql (U) Negative NEGATIVE [facility] Work Phone: Comment on above: CUTOFF LEVEL: 200 NG /ML Benzoylecgonine Screen Ql (U) Negative NEGATIVE [facility] Work Phone: Comment on above: CUTOFF LEVEL: 150 NG /ML Cannabinoids Screen Ql (U) Positive Abnormal NEGATIVE [facility] SSN Funding Phone: Comment on above: CUTOFF LEVEL: 50 NG/ ML Carboxy tetrahydrocannabinol (U) [Mass/Vol] 56 ng/mL [facility] Work Phone: Comment on above: INTERPRETIVE INFORMA TION: THC Metabolite, Urine, QuantitativeMethodology: Quantitative Liquid Chromatography-Tandem Mass SpectrometryPositive cutoff: 15 ng/mLFor medical purposes only; not valid for forensic use.The drug analyte detected in this assay, 9-carboxy THC, is a metabolite of dvvwm-9-rjuvkqsiszafimfeccxz (THC). Detection of 9-carboxy THC suggests use [...] developed and its performance characteristics determined by [employer]. It has not been cleared or approved by the US Food and Drug Administration. This test was performed in a CLIA certified laboratory and is intended for clinical purposes.Performed By: [employer] [place] [address] [id number] Director: Arnulfo Connell MD, PhD Methadone Screen Ql (U) Negative NEGATIVE [facility] Work Phone: Comment on above: CUTOFF LEVEL: 150 NG /ML The metabolite U-ptuyn-xfmgddqsaqdxkw (LAAM) is not detected by this method in concentrations that would be found in the urine of patients on LAAM therapy. Methamphetamine (U) [Mass/Vol] 590 ng/mL [facility] Work Phone: Comment on above: Consistent with use of a drug containing methamphetamine. Methamphetamine is metabolized to amphetamine. Amphetamine and methamphetamine exist in d- and l-isomeric forms. These forms are not distinguished by this test. Isomeric separation is available separately for an additional charge. Methylenedioxyamphetam ine (U) [Mass/Vol] <200 [facility] Work Phone: Methylenedioxyethylamp hetamine (U) [Mass/Vol] <200 [facility] Work Phone: Methylenedioxymethamph etamine (U) [Mass/Vol] <200 [facility] Work Phone: [phone] Opiates Screen Ql (U) Negative NEGATIVE [facility] Work Phone: Comment on above: CUTOFF LEVEL: 300 NG /ML The opiate screen does not detect fentanyl, meperidine, or tramadol. Oxycodone is not consistently detected (refer to Oxycodone Screen, Urine result). oxyCODONE+oxyMORphone Screen Ql (U) Negative NEGATIVE [facility] Work Phone: Comment on above: CUTOFF LEVEL: 100 NG /ML This test will accurately detect both oxycodone and oxymorphone. Phencyclidine Ql (U) Negative NEGATIVE [facility] Work Phone: Comment on above: CUTOFF LEVEL: 25 NG/ ML Cross-reactivity has been reported with dextromethorphan. Phentermine Confirm (U) [Mass/Vol] <200 [facility] Work Phone: Comment on above: Performed By: TOM hanson[address] [place] [address] [id number] Director: Arnulfo Connell MD, PhD No Panel Informationon 11-03 Negative NEGATIVE [facility] SSN Funding Phone: Comment on above: CUTOFF LEVEL: 5 NG/M L SEE BELOW [facility] SS[employer] Funding Phone: Comment on above: Drug screen results [...] link to view the study images [facility] Work Phone: AMPHETAMINE CONFIRM,URINEon 09-19-2022 AMPHETAMINES 3968 ng/mL Normal [facility] Comment on above: Result Comment: Cons istent [...] developed and its performance characteristics determined by [facility]. It has not been cleared or approved by the US Food and Drug Administration. This test was performed in a CLIA certified laboratory and is intended for clinical purposes. Performed By: #### A MPC1 #### [facility] [address] [facility], [place] [address] MDA <200 Normal [facility] Comment on above: Performed By: #### A MPC1 #### [address] [place] [address] MDEA <200 Normal [facility] Comment on above: Performed By: #### A MPC1 #### [address] [place] [address] MDMA <200 Normal [facility] Comment on above: Performed By: #### A MPC1 #### [address] [place] [address] METHAMPHETAMINE >[address] Normal [facility] Comment on above: Result Comment: Cons istent with use of a drug containing methamphetamine. Methamphetamine is metabolized to amphetamine. Amphetamine and methamphetamine exist in d- and l-isomeric forms. These forms are not distinguished by this test. Isomeric separation is available separately for an additional charge. Performed By: #### A MPC1 #### [address] [place] [address] PHENTERMINE <200 Normal [facility] Comment on above: Result Comment: Perf ormed By: [address] [address] [employer] Car Operator: Arnulfo Connell MD, PhD Performed By: #### A MPC1 #### [address] [address] CANNABINOID CONFIRM.URINEon 09-19-2022 40-RAJ-3-CARBOXY-THC 91 ng/mL Normal [facility] Comment on above: Result Comment: INTE RPRETIVE INFORMATION: THC Metabolite, Urine, Quantitative Methodology: Quantitative Liquid Chromatography-Tandem Mass Spectrometry Positive cutoff: 15 ng/mL For medical purposes only; not valid for forensic use. The drug analyte detected in this assay, 9-carboxy THC, is a metabolite of zteuw-5-fbudzoklqsqgxbjcucfa (THC). Detection of 9-carboxy THC suggests use [...] developed and its performance characteristics determined by [employer]. It has not been cleared or approved by the US Food and Drug Administration. This test was performed in a CLIA certified laboratory and is intended for clinical purposes. Performed By: [employer] [address] [place] [address] [employer] Metal Car Operator: Arnulfo Connell MD, PhD Performed By: #### C ANCN #### [facility] [employer] [place] [address] DRUG SCREEN,URINE WITH REFLE X TO CONFIRMATIONon 09-16-2022 AMPHETAMINE SCREEN,U Positive Abnormal NEGATIVE [facility] Comment on above: Result Comment: CUTO FF LEVEL: 500 NG/ML Cross-reactivity has been reported with high concentrations of the following drugs: buproprion, chloroquine, chlorpromazine, ephedrine, mephentermine, fenfluramine, phentermine, phenylpropanolamine, pseudoephedrine, and propranolol. Performed By: #### T +S #### [facility] [address] [place] [address] BARBITURATES SCREEN,U Negative Normal NEGATIVE [facility] Comment on above: Result Comment: CUTO FF LEVEL: 200 NG/ML Performed By: #### T +S #### [facility] [address] [place] [address] BENZODIAZEPINES SCREEN,U Negative Normal NEGATIVE [facility] Comment on above: Result Comment: CUTO FF LEVEL: 200 NG/ML Performed By: #### T +S #### [facility] [address] [place] [address] CANNABINOIDS SCREEN,U Positive Abnormal NEGATIVE [facility] Comment on above: Result Comment: CUTO FF LEVEL: 50 NG/ML Performed By: #### T +S #### [facility] [address] [place] [address] COCAINE METABOLITE SCREEN,U Negative Normal NEGATIVE [facility] Comment on above: Result Comment: CUTO FF LEVEL: 150 NG/ML Performed By: #### T +S #### [facility] [address] [place] [id number] DRUG SCREEN COMMENT SEE BELOW Normal [facility] Comment on above: Result Comment: Drug screen [...] directors. Performed By: #### T +S #### [facility] [address] [place] [address] FENTANYL SCREEN,URINE Negative Normal NEGATIVE [facility] Comment on above: Result Comment: CUTO FF LEVEL: 5 NG/ML Performed By: #### T +S #### [facility] [address] [place] [address] METHADONE SCREEN,U Negative Normal NEGATIVE [facility] Comment on above: Result Comment: CUTO FF LEVEL: 150 NG/ML The metabolite D-lwpuo-rxeqcxxlggbjzz (LAAM) is not detected by this method in concentrations that would be found in the urine of patients on LAAM therapy. Performed By: #### T +S #### [facility] [address] [place] [address] OPIATES SCREEN,U Negative Normal NEGATIVE [facility] Comment on above: Result Comment: CUTO FF LEVEL: 300 NG/ML The opiate screen does not detect fentanyl, meperidine, or tramadol. Oxycodone is not consistently detected (refer to Oxycodone Screen, Urine result). Performed By: #### T +S #### [facility] [address] [place] [address] OXYCODONE SCREEN,U Negative Normal NEGATIVE [facility] Comment on above: Result Comment: CUTO FF LEVEL: 100 NG/ML This test will accurately detect both oxycodone and oxymorphone. Performed By: #### T +S #### [facility] [address] [place] [address] PCP SCREEN,U Negative Normal NEGATIVE [facility] Comment on above: Result Comment: CUTO FF LEVEL: 25 NG/ML Cross-reactivity has been reported with dextromethorphan. Performed By: #### T +S #### [facility] [address] [place] [address] GC + CHLAMYDIA BY AMPLIFIED DETECTIONon 09-16-2022 CHLAMYDIA TRACH.,AMPLIFIED Negative Normal Negative [facility] Comment on above: Result Comment: The APTIMA Combo 2 assay is FDA-approved for Chlamydia trachomatis and Neisseria gonorrhoeae testing on female endocervical and vaginal swabs, ThinPrep liquid pap samples, male urine samples and urethral swabs. Performance characteristics for Chlamydia trachomatis and Neisseria gonorrhoeae testing on specific yva-DPZ-ipjasoeb sample types (female urine samples) have been validated by [facility]. This laboratory is certified by CLIA to perform high complexity testing. Samples from all other sites are not validated for this method. Performed By: #### T +S #### [facility] [address] [place] [address] N.GONORRHEA,AMPLIFIED Positive Abnormal Negative [facility] Comment on above: Result Comment: The APTIMA Combo 2 assay is FDA-approved for Chlamydia trachomatis and Neisseria gonorrhoeae testing on female endocervical and vaginal swabs, ThinPrep liquid pap samples, male urine samples and urethral swabs. Performance characteristics for Chlamydia trachomatis and Neisseria gonorrhoeae testing on specific vmv-CUI-ksrewsek sample types (female urine samples) have been validated by [facility]. This laboratory is certified by CLIA to perform high complexity testing. Samples from all other sites are not validated for this method. Performed By: #### T +S #### [facility] [address] [place] [address] TRICHOMONAS,NUCLEIC ACID DET ECTIONon 09-16-2022 TRICHOMONAS VAGINALIS Negative Normal Negative [facility] Comment on above: Result Comment: The APTIMA Trichomonas vaginalis assay is FDA-approved for testing on female endocervical swabs, vaginal swabs, and ThinPrep liquid pap samples. Performance characteristics for Trichomonas vaginalis on specific rdr-FCQ-vmimlwgg sample types (female and male urine and male urethral swabs) have been validated by [facility]. This laboratory is certified by CLIA to perform high complexity testing. Samples from all other sites are not validated for this method. Performed By: #### H CGQU #### [address] [address] C. trachomatis+N. gonorrhoea e DNA ROHIT+probe Ql (Unsp spec)on 09-15-2022 C. trachomatis DNA ROHTI+probe Ql (Unsp spec) Negative Negative for Chlamydia trachomatis by amplificaton [facility] N. gonorrhoeae DNA ROHIT+probe Ql (Unsp spec) Negative Negative for Neisseria gonorrhoeae by amplification [facility] CBC ANEMIA PANEL WITH REFLEX ,PREGNANCYon 09-15-2022 Erythrocyte distribution width (RBC) [Ratio] 12.7 % Normal 11.5 - 14.5 [facility] Comment on above: Performed By: #### H CGQU #### [address] [address] Hematocrit (Bld) [Volume fraction] 33.9 % Low 36.0 - 46.0 [facility] Comment on above: Performed By: #### H CGQU #### [address] [address] Hemoglobin (Bld) [Mass/Vol] 11.5 g/dL Low 12.0 - 16.0 [facility] Comment on above: Performed By: #### H CGQU #### [address] [address] MCHC (RBC) [Mass/Vol] 33.9 g/dL Normal 32.0 - 36.0 [facility] Comment on above: Performed By: #### H CGQU #### [address] [address] MCV (RBC) [Entitic vol] 93 fL Normal 80 - 100 [facility] Comment on above: Performed By: #### H CGQU #### [address] [address] Platelets (Bld) [#/Vol] 262 10*3/uL Normal 150 - 450 [facility] Comment on above: Performed By: #### H CGQU #### [address] [address] RBC 3.63 x10E12/L Low 4.00 - 5.20 [facility] Comment on above: Performed By: #### H CGQU #### [address] [address] REFLEX ADDED, ANEMIA PANEL NONE Normal [facility] Comment on above: Performed By: #### H CGQU #### [address] [address] WBC (Bld) [#/Vol] 8.1 10*3/uL Normal 4.4 - 11.3 [facility] Comment on above: Performed By: #### H CGQU #### [address] [address] Cult, Urineon 09-15-2022 Bacteria identified Cx Nom (U) [facility] Work Phone: GC + Chlamydia By Amplified Detectionon 09-15-2022 C. trachomatis rRNA ROHIT+probe Ql (Unsp spec) Negative Negative [facility] Work Phone: Comment on above: The APTIMA Combo 2 a ssay is FDA-approved for Chlamydia trachomatis and Neisseria gonorrhoeae testing on female endocervical and vaginal swabs, ThinPrep liquid pap samples, male urine samples and urethral swabs. Performance characteristics for Chlamydia trachomatis and Neisseria gonorrhoeae testing on specific pnp-HVL-ggjyfplt sample types (female urine samples) have been validated by [facility]. This laboratory is certified by CLIA to perform high complexity testing. Samples from all other sites are not validated for this method. N. gonorrhoeae rRNA ROHIT+probe Ql (Unsp spec) Positive Abnormal Negative [facility] Work Phone: Comment on above: SOURCE: Thin Prep-En docervical The APTIMA Combo 2 assay is FDA-approved for Chlamydia trachomatis and Neisseria gonorrhoeae testing on female endocervical and vaginal swabs, ThinPrep liquid pap samples, male urine samples and urethral swabs. Performance characteristics for Chlamydia trachomatis and Neisseria gonorrhoeae testing on specific cgz-HAE-fhqhqxvb sample types (female urine samples) have been validated by [facility]. This laboratory is certified by CLIA to perform high complexity testing. Samples from all other sites are not validated for this method. HEP B SURF AG SCRNon 023 HBV surface Ag Ql (S) Negative [facility] HEP C AB IA W/CONF SCRNon HCV Ab Ql (S) Negative Negative [facility] HEPATITIS B SURFACE AGon HEP.B SURFACE AG Non-Reactive Normal NONREACTIVE [facility] Comment on above: Result Comment: Biot in interference may cause falsely decreased results. Patients taking a Biotin dose of up to 5 mg/day should refrain from taking Biotin for 24 hours before sample collection. Providers may contact their local laboratory for further information. Performed By: #### H BSAG #### [facility] [address] [place] [id number] HIV 1+2 Ab IA Qlon 3 HIV 1+2 Ab+HIV1 p24 Ag IA Ql Negative [facility] HIV 1/2 ANTIGEN/ANTIBODY SCR EEN WITH REFLEX TO CONFIRMATIONon 09-15-2022 HIV 1/2 AG/AB SCREEN Non-Reactive Normal NONREACTIVE [facility] Comment on above: Result Comment: HIV Ag/Ab screen is performed using the Siemens Patient Home Monitoring HIV Ag/Ab Combo assay which detects the presence of HIV p24 antigen as well as antibodies to HIV-1 (Group M and O) and HIV-2. . No laboratory evidence of HIV infection. If acute HIV infection is suspected, consider testing for HIV RNA by PCR (viral load). Performed By: #### H IV #### [facility] [address] [place] [id number] Lab Specimen Source Normal [facility] Comment on above: Performed By: #### H IV #### [facility] [address] [place] [address] Performed By: #### H BSAG #### [facility] [address] [place] [address] HIV 1+2 Ab Qn (S) Non-Reactive See Below On license of [facility] Work Phone: Comment on above: SOURCE: Reference [...] Hepatitis B Surface Antigen Non-Reactive See Below [facility] Work Phone: Comment on above: SOURCE: Reference Ra nge: NONREACTIVE Biotin interference may cause falsely decreased results. Patients taking a Biotin dose of up to 5 mg/day should refrain from taking Biotin for 24 hours before sample collection. Providers may contact their local laboratory for further information. Laboratory - Blood bankon ABO group Nom (Bld) O On license of [facility] Work Phone: Blood group antibody screen Ql Negative [facility] Work Phone: Rh immune globulin screen (Bld) [Interp] Positive [facility] Work Phone: Laboratory - Cytologyon 08-22 Cytology report Cyto stain.thin prep Doc (Cvx/Vag) [facility] Work Phone: Laboratory - Drug toxicology on 09-15-2022 Amphetamine (U) [Mass/Vol] 3968 ng/mL [facility] Work Phone: Comment on above: Consistent with [...] developed and its performance characteristics determined by [employer]. It has not been cleared or approved by the US Food and Drug Administration. This test was performed in a CLIA certified laboratory and is intended for clinical purposes. Amphetamines Screen Ql (U) Positive Abnormal NEGATIVE [facility] SS[employer] Funding Phone: Comment on above: CUTOFF LEVEL: 500 NG /ML Cross-reactivity has been reported with high concentrations of the following drugs: buproprion, chloroquine, chlorpromazine, ephedrine, mephentermine, fenfluramine, phentermine, phenylpropanolamine, pseudoephedrine, and propranolol. Barbiturates Screen Ql (U) Negative NEGATIVE [facility] [facility] SS[employer] Funding Phone: Comment on above: CUTOFF LEVEL: 200 NG /ML Benzodiazepines Ql (U) Negative NEGATIVE Wo [facility] Work Phone: Comment on above: CUTOFF LEVEL: 200 NG /ML Benzoylecgonine Screen Ql (U) Negative NEGATIVE [facility] Work Phone: Comment on above: CUTOFF LEVEL: 150 NG /ML Cannabinoids Screen Ql (U) Positive Abnormal NEGATIVE [facility] Work Phone: Comment on above: CUTOFF LEVEL: 50 NG/ ML Carboxy tetrahydrocannabinol (U) [Mass/Vol] 91 ng/mL [facility] Work Phone: Comment on above: INTERPRETIVE INFORMA TION: THC Metabolite, Urine, QuantitativeMethodology: Quantitative Liquid Chromatography-Tandem Mass SpectrometryPositive cutoff: 15 ng/mLFor medical purposes only; not valid for forensic use.The drug analyte detected in this assay, 9-carboxy THC, is a metabolite of ljjiw-1-eqlpkgeiljpdjduwnxbk (THC). Detection of 9-carboxy THC suggests use [...] developed and its performance characteristics determined by [employer]. It has not been cleared or approved by the US Food and Drug Administration. This test was performed in a CLIA certified laboratory and is intended for clinical purposes.Performed By: [employer] [place] [address] [id number] Director: Arnulfo Connell MD, PhD Methadone Screen Ql (U) Negative NEGATIVE [facility] Work Phone: Comment on above: CUTOFF LEVEL: 150 NG /ML The metabolite T-xtllh-qbzuztpqqoprgf (LAAM) is not detected by this method in concentrations that would be found in the urine of patients on LAAM therapy. Methamphetamine (U) [Mass/Vol] ug/mL [facility] Work Phone: Comment on above: Consistent with use of a drug containing methamphetamine. Methamphetamine is metabolized to amphetamine. Amphetamine and methamphetamine exist in d- and l-isomeric forms. These forms are not distinguished by this test. Isomeric separation is available separately for an additional charge. Methylenedioxyamphetam ine (U) [Mass/Vol] <200 [facility] Work Phone: Methylenedioxyethylamp hetamine (U) [Mass/Vol] <200 [facility] Work Phone: Methylenedioxymethamph etamine (U) [Mass/Vol] <200 [facility] Work Phone: Opiates Screen Ql (U) Negative NEGATIVE [facility] Work Phone: Comment on above: CUTOFF LEVEL: 300 NG /ML The opiate screen does not detect fentanyl, meperidine, or tramadol. Oxycodone is not consistently detected (refer to Oxycodone Screen, Urine result). oxyCODONE+oxyMORphone Screen Ql (U) Negative NEGATIVE [facility] Work Phone: Comment on above: CUTOFF LEVEL: 100 NG /ML This test will accurately detect both oxycodone and oxymorphone. Phencyclidine Ql (U) [facility] Work Phone: Comment on above: CUTOFF LEVEL: 25 NG/ ML Cross-reactivity has been reported with dextromethorphan. Phentermine Confirm (U) [Mass/Vol] <200 [facility] Work Phone: Comment on above: Performed By: TOM hanson[address] [place] [address] [id number] Director: Arnulfo Connell MD, PhD Laboratory - Hematology and Cell countson 09-15-2022 Erythrocyte distribution width (RBC) [Ratio] 12.7 % See Below [facility] Work Phone: Comment on above: Reference Range: 11. 5 - 14.5 Hematocrit (Bld) [Volume fraction] 33.9 % Abnormal 36.0 - 46.0 % [facility] Work Phone: Comment on above: Reference Range: 36. 0 - 46.0 Hemoglobin (Bld) [Mass/Vol] 11.5 g/dL 11.5 - 15.5 g/dL [facility] Work Phone: Comment on above: Reference Range: 12. 0 - 16.0 MCHC (RBC) [Mass/Vol] 33.9 g/dL See Below [facility] Work Phone: Comment on above: Reference Range: 32. 0 - 36.0 MCV (RBC) [Entitic vol] 93 fL 80 - 100 [facility] Work Phone: Platelets (Bld) [#/Vol] 262 10*3/uL [facility] Work Phone: RBC (Bld) [#/Vol] 3.63 {x10E12/L} below low threshold See Below [facility] [employer] Funding Phone: Comment on above: Reference Range: 4.0 0 - 5.20 WBC (Bld) [#/Vol] 8.1 10*3/uL 4.4 - 11.3 [facility] Work Phone: No Panel Informationon 09-15 NONE [facility] SSN Funding Phone: Negative Negative [facility] SS[employer] Funding Phone: Comment on above: SOURCE: Thin Prep-En docervical The APTIMA Trichomonas vaginalis assay is FDA-approved for testing on female endocervical swabs, vaginal swabs, and ThinPrep liquid pap samples. Performance characteristics for Trichomonas vaginalis on specific vvk-LMJ-fvojznsf sample types (female and male urine and male urethral swabs) have been validated by [facility]. This laboratory is certified by CLIA to perform high complexity testing. Samples from all other sites are not validated for this method. Negative NEGATIVE [facility] Work Phone: Comment on above: CUTOFF LEVEL: 5 NG/M L SEE BELOW [facility] [employer] Funding Phone: Comment on above: Drug screen results [...] Microscopic observation Cyto stain Nom (Cvx) normal [facility] RPR SCREENon 09-15-2022 Reagin Ab RPR Ql (S) Non-Reactive Nonreactive C [facility] RUBELLA IGG ABon 09-15-2022 RUBELLA IGG AB Positive Normal [facility] Comment on above: Result [...] assays. Performed By: #### H CGQU #### [address] [address] Rubella IgG, Qual Positive Positive [facility] Rubella IgG Antibodyon 09-15 Rubella virus IgG IA Ql Positive [facility] Work Phone: Comment on above: INTERPRETATIVE COMME [...] 09-15-2022 SYPHILIS TOTAL AB Non-Reactive Normal NONREACTIVE [facility] Comment on above: Result Comment: No s ignificant level of Treponema pallidum antibody detected. Repeat testing in 2 to 4 weeks may be considered if early infection or incubating syphilis infection is suspected. Performed By: #### T +S #### [facility] [address] [place] [address] T. pallidum IgG+IgM IA Ql (S) Non-Reactive See Below [employer] Work Phone: Comment on above: Reference Range: NON REACTIVENo significant level of Treponema pallidum antibody detected. Repeat testing in 2 to 4 weeks may be considered if early infection or incubating syphilis infection is suspected. TRICHOMONAS,NUCLEIC ACID DET ECTIONon 09-15-2022 Lab Specimen Source Thin Prep-Endocervical Normal [facility] Comment on above: Performed By: #### H CGQU #### [facility] [address] [place] [address] Performed By: #### T +S #### [facility] [address] [place] [address] TYPE + SCREENon 09-15-2022 ABO TYPE O Normal [facility] Comment on above: Performed By: #### T +S #### [facility] [address] [place] [address] RH TYPE Positive Normal [facility] Comment on above: Performed By: #### T +S #### [facility] [address] [place] [address] TYPE + SCREEN PRENATALon ABO O [facility] Rh Nom (Bld) Positive [facility] Tobacco Screening.on 023 Adult depression screening assessment No [employer] Work Phone: Fall risk assessment a) No falls within the last year [employer] Work Phone: Last menstrual period start date 05/15/22? unknown [facility] Work Phone: Tobacco use status CPHS a) Yes [facility] Work Phone: URINE CULTURE,BACTERIALon URINE CULTURE,BACTERIAL PATIENT: TAMIE NEGRON LOCATION: [facility] BILL#: [id number] : 89 AGE: SEX: F ORDERED BY: TAYE SANDRA SOURCE: URINE COLLECTED: 09/15/22 10:36 ANTIBIOTICS AT SUNG.: RECEIVED : 09/16/22 09:49 SITE: Unspecified R E S U L T S URINE CULTURE,BACTERIAL FINAL 09/17/22 08:41 NO SIGNIFICANT GROWTH. Normal [facility] Comment on above: Performed By: #### T +S #### [facility] [address] [place] [address] No Panel Informationon 09-12 Please click on the link to view the study images Normal [facility] Work Phone: HCG, [place] [address] m[IU]/mL Abnormal W [facility] Work Phone: Comment on above: .Total HCG measureme nt is performed using the Cindy Hague AccessImmunoassay which detects intact HCG and free beta HCG subunit. .This test is not indicated for use as a tumor marker.HCG testing is performed using a different test methodology at [facility] than other [facility]. Direct result comparisonshould only be made [...] source of the HCG elevation. HCG,BETA-QUANTITATIVEon HCG,BETA-QUANTITATIVE 98021 mIU/mL Abnormal U [facility] Comment on above: Result Comment: . Total HCG measurement is performed using the Cindy Mercy Access Immunoassay which detects intact HCG and free beta HCG subunit. . This test is not indicated for use as a tumor marker. HCG testing is performed using a different test methodology at [facility] than other [facility]. Direct result comparison should only be [...] the HCG elevation. Performed By: #### H [facility] #### [facility] [address] [place] [address] INFLUENZA A/B, COVID 2019 PC R,SYMPTOMATICon 08-16-2021 Date and time of symptom onset [id number] [facility] Work Phone: INFLUENZA A/B, COVID 2019 PCR,SYMPTOMATIC Detected Abnormal See Below [facility] Work Phone: Comment on above: Reference Range: [...] make patient management decisions.Fact sheet for providers: https://www.fda.gov/media/726333/downloadFact sheet for patients: https://www.fda.gov/media/487782/downloadThis test has received FDA Emergency Use Authorization (EUA) and has been verified by [facility] ([facility]). This test is only authorized for the duration of time that circumstances exist to justify the authorization of the emergency use of in vitro diagnostic tests for the detection of SARS-CoV-2 virus and/or diagnosis of COVID-19 infection under section 564(b)(1) of the Act, 21 U.S.C. 360bbb-3(b)(1), unless the authorization is terminated or revoked sooner. [facility] is certified under CLIA-88 as qualified to perform high complexity testing. Testing is performed in the [facility] laboratories located at [address] [place] [address]. INFLUENZA A/B, COVID 2019 PCR,SYMPTOMATIC Not detected See Below [facility] Work Phone: Comment on above: Reference Range: Not Detected Respiratory virus testing is performed routinely by PCR for Influenza A/B and RSV. If Influenza and RSV PCR are negative, testing for parainfluenza 1,2,3 viruses and adenovirus is routinely performed for oncology inpatients and intensive care unit patients at [facility] and is available on request on other patients by calling Laboratory Client Services at [phone] Not Detected results do not preclude Influenza [...] by the Microbiology Laboratory, Department of Pathology, [facility], [place], [place]. It has not been cleared or [...] inpatients and intensive care unit patients at [facility] and is available on request on other patients by calling Laboratory Client Services at [phone]. Not Detected results do not preclude Influenza A/B or RSV infections since the adequacy of sample collection or low viral burden may impact the clinical sensitivity of this test method. Respirationon 08-16-2021 Tobacco use status CPHS a) Yes [facility] Work Phone: Respiration Normal [facility] Work Phone: Respiration Adult [facility] Work Phone: FOOT 3V AP/LAT/OBL RIGHTon 0 10-11-2017 FOOT 3V AP/LAT/OBL RIGHT Performed at [facility] APPROVED BY: ROSALIND GREGORIO MD THREE VIEWS, [...] second, third and fourth metatarsal bones. Normal [facility] Vital Signs Date Time Vital Sign Value Performing Clinician Facility 10-24-2024 08:32-0500 Body height 152.4 cm Pepe Mei MD Work Phone: [facility] 10-24-2024 08:32-0500 Body mass index (BMI) [Ratio] 21.09 kg/m2 Pepe Mei MD Work Phone: [facility] 10-24-2024 08:32-0500 Body temperature 98.29 [degF] Pepe Mei MD Work Phone: [facility] 10-24-2024 08:32-0500 Body weight 48.99 kg Pepe Mei MD Work Phone: [facility] 10-24-2024 08:32-0500 Diastolic blood pressure 79 mm[Hg] Pepe Mei MD Work Phone: [facility] 10-24-2024 08:32-0500 Heart rate 104 /min Pepe Mei MD Work Phone: [facility] 10-24-2024 08:32-0500 Respiratory rate 18 /min Pepe Mei MD Work Phone: [facility] 10-24-2024 08:32-0500 SaO2% (BldA) [Mass fraction] 100 % Pepe Mei MD Work Phone: [facility] 10-24-2024 08:32-0500 Systolic blood pressure 128 mm[Hg] Pepe Mei MD Work Phone: [facility] 12-07-2023 13:16-0400 Body height 152.4 cm Ratna Tavarez MD Work Phone: [facility] 12-07-2023 13:16-0400 Body temperature 98.8 [degF] Ratna Tavarez MD Work Phone: [facility] 12-07-2023 13:16-0400 Body weight 60.78 kg Ratna Tavarez MD Work Phone: [facility] 12-07-2023 13:16-0400 Diastolic blood pressure 66 mm[Hg] Ratna Tavarez MD Work Phone: [facility] 12-07-2023 13:16-0400 Heart rate 76 /min Ratna Tavarez MD Work Phone: [facility] 12-07-2023 13:16-0400 Respiratory rate 18 /min Ratna Tavarez MD Work Phone: [facility] 12-07-2023 13:16-0400 SaO2% (BldA) [Mass fraction] 97 % Ratna Tavarez MD Work Phone: [facility] 12-07-2023 13:16-0400 Systolic blood pressure 105 mm[Hg] Ratna Tavarez MD Work Phone: [facility] 03-22-2023 08:01-0400 Body height 154.9 cm Oli Conrteras DO Work Phone: [facility] 03-22-2023 08:01-0400 Body weight 58.51 kg Oli Contreras DO Work Phone: [facility] 03-22-2023 08:01-0400 Diastolic blood pressure 50 mm[Hg] Oli Contreras DO Work Phone: [facility] 03-22-2023 08:01-0400 Systolic blood pressure 90 mm[Hg] Oli Contreras DO Work Phone: [facility] 09-15-2022 09:01-0500 Body height 154.94 cm Referring Provider Unknown JANZZ Work Phone: 09-15-2022 09:01-0500 Body mass index (BMI) [Ratio] 24.09 kg/m2 Referring Provider Unknown JANZZ Work Phone: 09-15-2022 09:01-0500 Body surface area Derived from formula 1.56 m2 Referring Provider Unknown JANZZ Work Phone: 09-15-2022 09:01-0500 Body weight 57.83 kg Referring Provider Unknown JANZZ Work Phone: 09-15-2022 09:01-0500 Diastolic blood pressure 50 mm[Hg] Referring Provider Unknown JANZZ Work Phone: 09-15-2022 09:01-0500 Systolic blood pressure 118 mm[Hg] Referring Provider Unknown [email or web address] Work Phone: 09-15-2022 09:01-0500 4 1 Referring Provider Unknown [employer] [facility] Work Phone: Comment on above: GRAV 09-15-2022 09:01-0500 0 1 Referring Provider Unknown [email or web address] Work Phone: Comment on above: PARA 08-16-2021 13:44-0500 Body height 154.94 cm Referring Provider Unknown [facility] Work Phone: 08-16-2021 13:44-0500 Body mass index (BMI) [Ratio] 20.78 kg/m2 Referring Provider Unknown [facility] Work Phone: 08-16-2021 13:44-0500 Body surface area Derived from formula 1.47 m2 Referring Provider Unknown [facility] Work Phone: 08-16-2021 13:44-0500 Body temperature 97.9 [degF] Referring Provider Unknown [facility] Work Phone: 08-16-2021 13:44-0500 Body weight 49.9 kg Referring Provider Unknown [facility] Work Phone: 08-16-2021 13:44-0500 Diastolic blood pressure 72 mm[Hg] Referring Provider Unknown [facility] Work Phone: 08-16-2021 13:44-0500 Heart rate 76 /min Referring Provider Unknown [facility] Work Phone: 08-16-2021 13:44-0500 Respiratory rate 18 /min Referring Provider Unknown [facility] Work Phone: 08-16-2021 13:44-0500 SaO2% (BldA) [Mass fraction] 100 % Referring Provider Unknown [facility] Work Phone: 08-16-2021 13:44-0500 Systolic blood pressure 117 mm[Hg] Referring Provider Unknown [facility] Work Phone: 12-28-2016 01:11-0400 BP Diastolic 68 mm[Hg] [facility] Work Phone: 12-28-2016 01:11-0400 BP Systolic 105 mm[Hg] [facility] Work Phone: 12-28-2016 01:11-0400 Pulse (Heart Rate) 109 /min [facility] Work Phone: 12-28-2016 01:11-0400 Respiratory Rate 18 /min [facility] Work Phone: 12-27-2016 19:31-0400 BMI (Body Mass Index) 19.14 kg/m2 [facility] Work Phone: 12-27-2016 19:31-0400 Body Temperature 98.1 [degF] [facility] Work Phone: 12-27-2016 19:31-0400 Body weight 44.45 kg [facility] Work Phone: 12-27-2016 19:31-0400 Height 152.4 cm [facility] Work Phone: 12-27-2016 19:31-0400 Pulse Oximetry 98 % [facility] Work Phone: 12-27-2016 19:31-0400 SaO2% (BldA) [Mass fraction] 98 % [facility] Work Phone: Encounters Encounter Date Encounter Type Care Provider Facility Start: 04-03-2025 End: 04-03-2025 ambulatory Myrna MANJARREZ Work Phone: -Laboratory [facility] Start: 04-03-2025 End: 04-03-2025 Patient encounter procedure VSC Myrna MANJARREZ -Laboratory [facility] Start: 04-03-2025 End: 04-03-2025 ambulatory Myrnadouglas Phillips [facility] Facility:[facility] Start: 01-27-2025 End: 01-27-2025 Emergency department patient visit [facility] Start: 10-24-2024 End: 10-24-2024 Telephone encounter Pepe Mei MD Work Phone: [facility] ([facility]) Comment on above: Referral Information (Gynecology) Start: 10-24-2024 End: 10-24-2024 Patient encounter procedure Pepe Mei MD Work Phone: [facility] ([facility]) Comment on above: Vagina bleeding (Avani geraldo Dx); Status post elective ; Constipation, unspecified constipation type Start: 10-23-2024 End: 10-23-2024 ambulatory Ratna Tavarez MD Work Phone: [facility] ([facility]) Start: 10-23-2024 End: 10-23-2024 Patient encounter procedure Ratna Tavarez MD Work Phone: [facility] ([facility]) Comment on above: ED Outreach ([facility] 10/22/2024) Start: 02-16-2024 Telephone encounter Ratna chaudhari MD Work Phone: [facility] ([facility]) Comment on above: No Show (No Show #1) Start: 12-12-2023 Telephone encounter Pernell Zhao niez [facility] [place] Comment on above: Smoking Cessation Start: 12-07-2023 End: 12-07-2023 Office outpatient new 30 minutes Ratna Tavarez MD Work Phone: [facility] ([facility]) Comment on above: Encounter to [facility] (Primary Dx); Encounter for immunization; Tobacco abuse Start: 03-22-2023 End: 03-22-2023 Patient encounter procedure Oli Contreras DO Work Phone: [facility] Comment on above: Encounter for routin e follow-up (Primary Dx); Encounter for initial prescription of contraceptive pills Start: 01-17-2023 Telephone encounter Izzy Jett Carias APRN.CNM Work Phone: [facility] Comment on above: Appointment (Needs O NE week BP check. JS left message to call office) Start: 01-14-2023 Evaluation and management of inpatient OLI CONTRERAS Facility:[facility] Start: 01-11-2023 End: 01-11-2023 ambulatory [facility] Start: 01-11-2023 End: 01-11-2023 Patient encounter procedure [employer] Work Phone: [facility] Comment on above: Intravenous drug use during in third trimester Start: 01-05-2023 End: 01-05-2023 ambulatory [facility] Facility[facility] Start: 12-30-2022 Chart abstracting Oli Pleitez me DO Work Phone: [facility] Comment on above: Abstract (New OB tra nsfer) Start: 12-29-2022 ambulatory MD TAYE SANDRA Facil [id number] Start: 12-29-2022 EPVOB, Provider: Taye Sandra, Status: Pen, Time: 9:30 AM Referring Provider Unknown [facility] Work Phone: Start: 12-28-2022 Chart Update Referring Prov ider Unknown [facility] Work Phone: Start: 12-26-2022 Chart Update Referring Prov ider Unknown [facility] Work Phone: Start: 12-23-2022 Chart Update Referring Prov ider Unknown [facility] Work Phone: Start: 12-22-2022 ambulatory MD TAYE SANDRA Facil [id number] Start: 12-22-2022 Office outpatient vi sit 15 minutes Referring Provider Unknown [facility] Work Phone: Start: 12-21-2022 ULTRASDFUV, Provider : [facility] 2A IMG RM [id number], Status: Pen, Time: 12:15 PM Referring Provider Unknown [facility] Work Phone: Start: 12-21-2022 ambulatory MD TAYE SANDRA Facil [id number] Start: 12-19-2022 Chart Update Referring Prov ider Unknown [facility] Work Phone: Start: 12-08-2022 ambulatory MD TAYE SANDRA Facil [id number] Start: 12-08-2022 Office outpatient vi sit 15 minutes Referring Provider Unknown [facility] Work Phone: Start: 12-01-2022 ambulatory MD TAYE SANDRA Facil [id number] Start: 11-24-2022 ambulatory MD TAYE SANDRA Facil [id number] Start: 11-10-2022 EPVOB, Provider: Taye Sandra, Status: Pen, Time: 9:30 AM Referring Provider Unknown [facility] Work Phone: Start: 11-10-2022 Office outpatient vi sit 15 minutes Referring Provider Unknown [facility] Work Phone: Start: 11-10-2022 ambulatory MD TAYE SANDRA Facil [id number] Start: 11-08-2022 Chart Update Referring Prov ider Unknown [facility] Work Phone: Start: 11-08-2022 Chart Update Referring Prov ider Unknown [facility] Work Phone: Start: 11-03-2022 ambulatory MD TAYE SANDRA Facil [id number] Start: 11-03-2022 Office outpatient vi sit 15 minutes Referring Provider Unknown [facility] Work Phone: Start: 10-28-2022 ambulatory PCP UNKNOWN Facility:[id number] Start: 10-20-2022 ambulatory MD TAYE Walters [id number] Start: 10-13-2022 AUDIT Referring Prov ider Unknown [facility] Work Phone: Start: 09-30-2022 ambulatory PCP UNKNOWN Facility:[id number] Start: 09-22-2022 AUDIT Referring Prov ider Unknown [facility] Work Phone: Start: 09-20-2022 ambulatory MD TAYE Walters [id number] Start: 09-20-2022 Patient encounter procedure Referring Provider Unknown [facility] Work Phone: Start: 09-20-2022 RNVISIT, Provider: Patricia RASCON RN [place] 1,[id number], Status: Pen, Time: 10:30 AM Referring Provider Unknown [facility] Work Phone: Start: 09-19-2022 Chart Update Referring Prov ider Unknown [facility] Work Phone: Start: 09-16-2022 Chart Update Referring Prov ider Unknown [facility] Work Phone: Start: 09-15-2022 Chart Update Referring Prov ider Unknown [facility] Work Phone: Start: 09-15-2022 ambulatory MD TAYE SANDRA Facil [id number] Start: 09-15-2022 Office outpatient ne w 30 minutes Referring Provider Unknown [facility] Work Phone: Start: 09-15-2022 ambulatory MD TAYE SANDRA Facil ity:[id number] Start: 09-12-2022 AUDIT Referring Prov ider Unknown [facility] Work Phone: Start: 09-12-2022 ambulatory PCP UNKNOWN Facility:1 [id number] Start: 08-23-2022 AUDIT Referring Prov ider Unknown [facility] Work Phone: Start: 08-17-2021 Chart Update Referring Prov ider Unknown [facility] Work Phone: Start: 08-16-2021 Office outpatient ne w 45 minutes Referring Provider Unknown [facility] Work Phone: Start: 11-17-2017 Ambulatory IMCA Facility:[facility] Start: 11-16-2017 Ambulatory FLOWER RODRIGUEZ Facili ty:[facility] Start: 10-11-2017 End: 10-11-2017 Emergency department patient visit INC GEMS Facility:[facility] Start: 09-28-2017 End: 09-28-2017 Emergency department patient visit IMCA Facility:[facility] Procedures Date Procedure Procedure Detail Performing Clinician Start: 04-03-2025 Serologic test for syphilis Myrna natarajan [facility] Work Phone: Start: 04-03-2025 Liquid based cervical cytology screening Myrna Phillips [facility] Work Phone: Comment on above: NEGATIVE FOR INTRAEPITHELIAL LESION OR M ALIGNANCY. This liquid based Th inPrep(R) pap test was screened withthe use of an image guided system. The HPV DNA reflex c riteria were not met with this specimenresult therefore, no HPV testing was performed.Performed at: [address] [id number] Director: Martha Gutierrez MD, Phone: [phone] Start: 04-03-2025 Procedure Myrna Phillips [facility] Work Phone: Comment on above: Test Ordered: [id number] NuSwab Vaginitis Pl us (VG+)Test(s) 285987- Atopobium vaginae; 956113- BVAB 2;657732- Megasphaera 1was developed and its performance characteristicsdetermined by [employer]. It has not been cleared or approvedby the Food and Drug Administration.Test(s) 378997-Tyydvxa albicans, ROHIT; 518916-Pnudyon glabrata, NAAwas developed and its performance characteristicsdetermined by [employer]. It has not been cleared or approvedby [...] =G Reference Range: NegativePerformed at: = - [facility] [id number] Director: Martha Gutierrez MD, Phone: [phone] at: - [facility] [id number] Director: Skyler Oneal PhD, Phone: [phone] Start: 12-07-2023 Adult depression screening assessment Ratna Tavarez MD Work Phone: Start: 01-14-2023 Antibody screen OLI CONTRERAS Comment on above: Order Comment: Specimen Type: BLOOD SPEC IMENOrdering Facility: [facility] Address: [address] [facility], [place] [address] Performed By: #### T SPN ####[facility] [id number] [place] [address] [place] Start: 01-11-2023 biophysical profile non-stress testing Oli Contreras DO Work Phone: Start: 09-15-2022 End: 09-15-2022 Antibody screen Oli Contreras DO Work Phone: Comment on above: Performed By: #### T+S #### [facility] [address] [place] [address] Start: 09-15-2022 CBC panel - Blood by [...] for Adults (1 - 1-dose 75+ series) [facility] Start: 2048 Zoster Vaccines (1 of 2) Zoste r Vaccines (1 of 2) [facility] Start: 11-03-2032 DTaP/Tdap/Td Vaccine s (9 - Td or Tdap) DTaP/Tdap/Td Vaccines (9 - Td or Tdap) [facility] Start: 11-03-2032 Urine microalbumin profile DTa P,Tdap,Td Vaccine (9 - Td or Tdap) [facility] Start: 11-21-2025 Screening for malign ant neoplasm of cervix [facility] Start: 09-15-2025 Screening for malign ant neoplasm of cervix Pap Smear [facility] Start: 04-21-2025 Influenza vaccination Influenz a Vaccine (Season Ended) [facility] Start: 04-03-2025 [facility] Start: 12-06-2024 Anxiety Screening Anxiety Screening [facility] Start: 12-06-2024 Depression Screening Depression Scre ening [facility] Start: 10-24-2024 End: 10-24-2024 Patient encounter procedure 10/24/2024 8:20 AM EST Office Visit [facility] Internal Medicine [facility] ([facility]) [address] [facility] [address] [place], [place] [id number] Pepe Mei MD [address] [place], [place] [id number] ED follow up [facility] ([facility]) Comment on above: ED follow up Start: 04-21-2024 COVID-19 Vaccine ( season) COVID-19 Vaccine ( season) [facility] Start: 04-21-2024 [facility] Start: 02-16-2024 End: 02-16-2024 Patient encounter procedure 02/16/2024 9:40 AM EDT Office Visit [facility] ([facility]) [address] [facility] [address] [place], [place] [id number] Ratna Tavarez MD 1 [place], [place] [id number] 3 months f/u [facility] ([facility]) Comment on above: 3 months f/u Start: 04-21-2023 Influenza [facility] Start: 01-19-2023 EPVOB, Provider: Taye Sandra, Status: Pen, Time: 9:30 AM EPVOB, Provider: Taye Sandra, Status: Pen, Time: 9:30 AM [facility] Work Phone: Start: 01-19-2023 EPVOB, Provider: Taye Sandra, Status: Pen, Time: 9:20 AM EPVOB, Provider: Taye Sandra, Status: Pen, Time: 9:20 AM [facility] Work Phone: Start: 01-12-2023 EPVOB, Provider: Taye Sandra, Status: Pen, Time: 9:20 AM EPVOB, Provider: Taye Sandra, Status: Pen, Time: 9:20 AM [email or web address] [place] Work Phone: Start: 01-05-2023 EPVOB, Provider: Taye Sandra, Status: Pen, Time: 9:20 AM EPVOB, Provider: Taye Sandra, Status: Pen, Time: 9:20 AM [facility] Work Phone: Start: 12-29-2022 EPVOB, Provider: Taye Sandra, Status: Pen, Time: 9:30 AM EPVOB, Provider: Taye Sandra, Status: Pen, Time: 9:30 AM [facility] [place] Work Phone: Start: 12-29-2022 EPVOB, Provider: Taye Sandra, Status: Pen, Time: 9:20 AM EPVOB, Provider: Taye Sandra, Status: Pen, Time: 9:20 AM [facility] Work Phone: Start: 12-22-2022 EPVOB, Provider: Taye Sandra, Status: Pen, Time: 9:20 AM EPVOB, Provider: Taye Sandra, Status: Pen, Time: 9:20 AM [facility] [place] Work Phone: Start: 12-21-2022 ULTRASDFUV, Provider : [facility] 2A IMG RM 01,[id number], Status: Pen, Time: 12:15 PM ULTRASDFUV, Provider: [facility] 2A IMG RM 01,[id number], Status: Pen, Time: 12:15 PM [facility] Work Phone: Start: 12-08-2022 EPVOB, Provider: Taye Sandra, Status: Pen, Time: 10:20 AM EPVOB, Provider: Taye Sandra, Status: Pen, Time: 10:20 AM [facility] [place] Work Phone: Start: 11-24-2022 EPVOB, Provider: Taye Sandra, Status: Pen, Time: 9:20 AM EPVOB, Provider: Taye Sandra, Status: Pen, Time: 9:20 AM [facility] Work Phone: Start: 11-10-2022 EPVOB, Provider: Taye Sandra, Status: Pen, Time: 9:30 AM EPVOB, Provider: Taye Sadnra, Status: Pen, Time: 9:30 AM [facility] [place] Work Phone: Start: 10-28-2022 EPVOB, Provider: Taye Sandra, Status: Pen, Time: 9:50 AM EPVOB, Provider: Taye Sandra, Status: Pen, Time: 9:50 AM [facility] [place] Work Phone: Start: 10-28-2022 EPVOB, Provider: Taye Sandra, Status: Pen, Time: 9:40 AM EPVOB, Provider: Taye Sandra, Status: Pen, Time: 9:40 AM [facility] [place] Work Phone: Start: 10-20-2022 EPVOB, Provider: Taye Sandra, Status: Pen, Time: 10:50 AM EPVOB, Provider: Taye Sandra, Status: Pen, Time: 10:50 AM [facility] [place] Work Phone: Start: 10-13-2022 EPVOB, Provider: Taye Sandra, Status: Pen, Time: 9:30 AM EPVOB, Provider: Taye Sandra, Status: Pen, Time: 9:30 AM [facility] Work Phone: Start: 09-15-2022 NPVOBINTL, Provider: Taye Sandra, Status: Pen, Time: 9:00 AM NPVOBINTL, Provider: Taye Sandra, Status: Pen, Time: 9:00 AM [facility] Work Phone: Start: 09-15-2022 .INTAKE, Provider: Patricia RASCON RN [place] 1,[id number], Status: Pen, Time: 8:30 AM .INTAKE, Provider: EMEKA RASCON RN [place] 1,[id number], Status: Pen, Time: 8:30 AM [facility] Work Phone: Start: 08-21-2022 DEPRESSION ASSESSMENT DEPRESSION ASS ESSMENT [facility] Start: 04-21-2021 Influenza vaccination Flu vacc ine (Season Ended) [facility] Work Phone: Start: 05-13-2020 DTaP/Tdap/Td vaccine (7 - Td) DTaP/Tdap/Td vaccine (7 - Td) [facility] Work Phone: Start: 2019 PAP TESTING PAP TESTING [facility] Start: 2019 Screening for malign ant neoplasm of cervix Cervical cancer screen [facility] Work Phone: Start: 2017 Urine microalbumin profile DTA P,TDAP,TD (1 - Tdap) [facility] Start: 2016 Hepatitis C screening Hepatitis C Sc reening [facility] Start: 08-05-2015 Pneumococcal 0-64 ye ars Vaccine (1 of 1 - PPSV23) Pneumococcal 0-64 years Vaccine (1 of 1 - PPSV23) [facility] Work Phone: Start: 08-05-2015 Pneumococcal Vaccine : Pediatrics (0 to 5 Years) and At-Risk Patients (6 to 49 Years) (2 of 2 - PPSV23) Pneumococcal Vaccine: Pediatrics (0 to 5 Years) and At-Risk Patients (6 to 49 Years) (2 of 2 - PPSV23) [facility] Start: 2014 COVID-19 Vaccine (1) COVID-19 Vaccin e (1) [facility] Work Phone: Start: 2014 MENINGOCOCCAL B: 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 on risk (1 of 2 - Patient Seeks Protection) MENINGOCOCCAL B: Consider based on risk (1 of 2 - Patient Seeks Protection) [facility] Start: 2014 Screening for Chlamy shanelle trachomatis Chlamydia screen [facility] Work Phone: Start: 2012 PEDS TO ADULT TRANSI TION ANNUAL ASSESSMENT PEDS TO ADULT TRANSITION ANNUAL ASSESSMENT [facility] Start: 2010 COVID-19 Vaccine (1) COVID-19 Vaccin e (1) [facility] Work Phone: Start: 2010 Depression Monitoring Depression [facility] Start: 2010 PEDS TO ADULT TRANSI TION INITIAL DISCUSSION PEDS TO ADULT TRANSITION INITIAL DISCUSSION [facility] Start: 2009 HPV vaccine (1 - 2-d ose series) HPV vaccine (1 - 2-dose series) [facility] Start: 2008 MENINGOCOCCAL B: 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 on risk (1 of 2 - Risk Bexsero 2-dose series) MENINGOCOCCAL B: Consider based on risk (1 of 2 - Risk Bexsero 2-dose series) [facility] Start: 2007 HPV VACCINE (1 - 2-d ose series) HPV VACCINE (1 - 2-dose series) [facility] Start: 2004 PNEUMOCOCCAL (1 - PCV) PNEUMOCOCCAL (1 - PCV) [facility] Start: 1998 COVID-19 VACCINE (#1) COVID-19 VACCI NE (#1) [facility] Start: 1998 HEPATITIS B (1 of 3 - 3-dose series) HEPATITIS B (1 of 3 - 3-dose series) [facility] Start: 1998 Hepatitis C screening Hepatitis C sc reen [facility] Work Phone: Start: 1998 Lipid panel Lipid Panel [facility] Hepatitis B surface antigen measurement [facility] Hepatitis B virus co re Ab [Presence] in Serum [facility] Hepatitis B virus german rface Ab [Units/volume] in Serum by Radioimmunoassay (ASHLEY) [facility] End: 11-23-2025 US Pelvis limited US FEMALE PELVIS TRANSABD LTD Radiology Routine Vagina bleeding Status post elective 1 Occurrences starting 10/24/2024 until 11/23/2025 [facility] Work Phone: Comment on above: 1 Occurrences starti ng 10/24/2024 until 11/23/2025 End: 11-23-2025 US Pelvis transvaginal US FEMALE PELVIS TRANSVAG Radiology Routine Vagina bleeding Status post elective 1 Occurrences starting 10/24/2024 until 11/23/2025 [facility] Comment on above: 1 Occurrences starti ng 10/24/2024 until 11/23/2025 [facility] Immunizations Immunization Date Immunization Notes Care Provider Fa cili 12-07-2023 pneumococcal conjuga te (PCV20) vaccine, 20 valent (PREVNAR 20) Ratna Tavarez MD Work Phone: [facility] 12-07-2023 pneumococcal Conjuga te, unspecified formulation Ratna Tavarez MD Work Phone: [facility] Work Phone: 11-03-2022 DTaP-hepatitis B and poliovirus vaccine Ratna Tavarez MD Work Phone: [facility] 11-03-2022 tetanus toxoid, redu erica diphtheria toxoid, and acellular pertussis vaccine, adsorbed; Translations: [Tdap (Boostrix)] Referring Provider Unknown [facility] Comment on above: Series: 06-10-2015 influenza, injectabl e, quadrivalent, preservative free Referring Provider Unknown [facility] 06-10-2015 pneumococcal conjuga te vaccine, 13 valent [facility] 06-10-2015 influenza virus vacc ine, unspecified formulation Ratna Tavarez MD Work Phone: [facility] 07-11-2014 HPV, unspecified formulation Referring Provider Unknown [facility] 07-11-2014 influenza, live, intranasal, quadrivalent Referring Provider Unknown [facility] 07-11-2014 meningococcal polysaccharide (groups A, C, Y and W-135) diphtheria toxoid conjugate vaccine (MCV4P) [facility] 04-11-2014 hepatitis A vaccine, pediatric/adolescent dosage, 2 dose schedule Referring Provider Unknown [facility] 04-11-2014 hepatitis A vaccine, unspecified formulation [facility] 04-11-2014 human papilloma viru s vaccine, quadrivalent Referring Provider Unknown [facility] 03-06-2013 hepatitis A vaccine, pediatric/adolescent dosage, 2 dose schedule Referring Provider Unknown [facility] 03-06-2013 hepatitis A vaccine, unspecified formulation [facility] 03-06-2013 human papilloma viru s vaccine, quadrivalent Referring Provider Unknown [facility] 05-13-2010 influenza virus vacc ine, whole virus Referring Provider Unknown [facility] 05-13-2010 meningococcal polysaccharide (groups A, C, Y and W-135) diphtheria toxoid conjugate vaccine (MCV4P) [facility] 05-13-2010 tetanus toxoid, redu erica diphtheria toxoid, and acellular pertussis vaccine, adsorbed [facility] 05-13-2010 varicella virus vaccine [facility] 05-11-2010 meningococcal polysaccharide (groups A, C, Y and W-135) diphtheria toxoid conjugate vaccine (MCV4P) Ratna Tavarez MD Work Phone: [facility] 03-23-2006 varicella virus vaccine Refe rring Provider Unknown [facility] 12-23-2003 diphtheria, tetanus toxoids and acellular pertussis vaccine [facility] Work Phone: 12-23-2003 diphtheria, tetanus toxoids and acellular pertussis vaccine, unspecified formulation Referring Provider Unknown [facility] 12-23-2003 influenza, seasonal, injectable Referring Provider Unknown [facility] 12-23-2003 measles, mumps and rubella virus vaccine [facility] 12-23-2003 poliovirus vaccine, inactivated [facility] 12-23-2003 varicella virus vaccine C [facility] 07-19-2001 diphtheria, tetanus toxoids and acellular pertussis vaccine [facility] Work Phone: 07-19-2001 diphtheria, tetanus toxoids and acellular pertussis vaccine, unspecified formulation Referring Provider Unknown [facility] 07-19-2001 haemophilus influenz ae type b vaccine, PRP-T conjugate [facility] 07-19-2001 varicella virus vaccine Ther mook Tavarez MD Work Phone: [facility] 05-22-2000 diphtheria, tetanus toxoids and acellular pertussis vaccine [facility] Work Phone: 05-22-2000 diphtheria, tetanus toxoids and acellular pertussis vaccine, unspecified formulation Referring Provider Unknown [facility] 05-22-2000 haemophilus influenz ae type b conjugate and Hepatitis B vaccine [facility] 05-22-2000 measles, mumps and rubella virus vaccine [facility] 05-22-2000 poliovirus vaccine, inactivated [facility] 1998 diphtheria, tetanus toxoids and acellular pertussis vaccine [facility] Work Phone: 1998 diphtheria, tetanus toxoids and acellular pertussis vaccine, unspecified formulation Referring Provider Unknown [facility] 1998 poliovirus vaccine, inactivated [facility] 1998 diphtheria, tetanus toxoids and acellular pertussis vaccine [facility] 1998 diphtheria, tetanus toxoids and acellular pertussis vaccine, unspecified formulation Referring Provider Unknown [facility] 1998 poliovirus vaccine, inactivated [facility] 1998 haemophilus influenz ae type b conjugate and Hepatitis B vaccine [facility] 1998 haemophilus influenz ae type b conjugate and Hepatitis B vaccine [facility] Payers Date Payer Category Payer Self-pay 2023 Medicaid HMO [facility] ODM [id number] 2022 Medicaid [id number] 2022 Medicaid [id number] 2020 Unknown [id number] 2016 Medicaid MEDICAID [facility] DEPT OF JOB [id number] 2016-Present [phone] [address] [place] [address] [id number] 1998 Unknown [id number] 9 1998 Unknown [id number] [id number] 9 1998 Unknown [id number] [id number] 9 1998 Unknown [id number] [id number] 1998 Unknown [id number] [id number] 1998 Unknown [id number] [id number] 1998 Unknown [id number] 2.16.840.1.096614.3.579.2.356 1998 Unknown [id number] 2.16.840.1.758642.3.579.2.356 1998 Unknown [id number] 2.16.840.1.214643.3.579.2.356 1998 Unknown [id number] 2.16.840.1.544767.3.579.2.356 1998 Unknown [id number] 2.16.840.1.507631.3.579.2.356 1998 Unknown [id number] 2.16.840.1.265085.3.579.2.356 1998 Unknown [id number] 2.16.840.1.175918.3.579.2.356 1998 Unknown [id number] 2.16.840.1.863564.3.579.2.356 1998 Unknown [id number] [id number] 1998 Unknown [id number] [id number] Unknown [employer] Unknown [id number] Social History Date Type Detail Facility Start: 01-02-2017 End: 12-07-2023 Tobacco smoking status NHIS Current every day smoker [facility] History of tobacco use Cigarette Smoker S [facility] Start: 01-02-2017 End: 01-27-2025 Cigarettes smoked current (pack per day) - Reported [facility] Work Phone: Start: 01-02-2017 Alcohol intake Current drinke r of alcohol (finding) [facility] Work Phone: Start: 02-18-2016 Alcohol Comment Occasionally [facility] Work Phone: Start: 1998 Sex Assigned At Female S [facility] Work Phone: Start: 09-28-2017 End: 12-07-2023 Tobacco use and exposure Smokeless tobacco non-user [facility] Start: 12-30-2022 End: 12-07-2023 Alcohol intake Current non-drinker of alcohol (finding) [facility] Start: 04-28-2022 [facility] Start: 1998 Sex Assigned At Not on file C [facility] Start: 03-22-2023 End: 01-27-2025 Tobacco use panel [facility] Work Phone: National Score (1-10 0), lower number is lower risk 64 [facility] Work Phone: How often to you hav e a drink containing alcohol? 2-3 time sa week [facility] How many standard drinks containing alcohol do you have on a typical day? 3 or 4 [facility] How often do you hav e 6 or more drinks on 1 occasion? Monthly [facility] Start: 03-21-2022 Sex Female (finding) [facility] Start: 06-09-2022 Gender identity Identifies as female gender (finding) [facility] Start: 06-09-2022 Sexual orientation Choose not to dis close [facility] Tobacco smoking stat us NHIS Unknown if ever smoked [facility] Work Phone: Goals Date Patient Goal Desired Activity /State Personal health goal Functional Status Date Assessment Result Facility 01-27-2025 Total score [AUDIT-C] 6 01/28/20 25 10:22 PM Musa Layton RN [facility] 01-18-2023 Are you deaf, or do you have serious difficulty hearing No 01/18/2023 5:06 PM Ester Bonilla, RY [facility] 01-18-2023 Are you blind, or do you have serious difficulty seeing, even when wearing glasses No 01/18/2023 5:06 PM Ester Bonilla, RY [facility] 01-18-2023 Do you have serious difficulty walking or climbing stairs No 01/18/2023 5:06 PM Ester Bonilla, RY [facility] 01-18-2023 Do you have difficul ty dressing or bathing No 01/18/2023 5:06 PM Ester Bonilla, RY [facility] 01-18-2023 Because of a physica l, mental, or emotional condition, do you have difficulty doing errands alone such as visiting a physician's office or shopping No 01/18/2023 5:06 PM Ester Bonilla, RY No [facility] Mental Status Date Assessment Result Facility 01-18-2023 Because of a physica l, mental, or emotional condition, do you have serious difficulty concentrating, remembering, or making decisions No 01/18/2023 5:06 PM Ester Boinlla, RY No [facility] Clinical Notes 08-10-2021 to 01-27-2025 Nidhi Lo RN - 01/27/2025 11:52 PM Andres Lo RN - 01/27/2025 11:52 PM ABEL Pillai CNP - 01/27/2025 10:13 PM ABEL Pillai CNP - 01/27/2025 10:13 PM EDT Note Date & Type Note Facility 01-27-2025 Emergency department Note Pt states she wants to leave, Tobin XIAO notified. Pt refused vitals. [facility] 01-27-2025 Emergency department Note Pt states she wants to leave, Tobin XIAO notified. Pt refused vitals. I did not participate in care of this patient ABEL Amaral CNP 01/28/25 0629 documented in this encounter [facility] 01-27-2025 Physician Emergency department Note I did not participate in care of this patient ABEL Amaral CNP 01/28/25 0629 [facility] Work Phone: 10-24-2024 Telephone encounter Note Referral to [employer] entered into the [facility] portal on 10/24/24. Confirmation number [id number]. [facility] 10-24-2024 Miscellaneous Notes Referral to [employer] entered into the [facility] portal on 10/24/24. Confirmation number [id number]. documented in this encounter [facility] 10-24-2024 History of Presen t illness Narrative Subjective: Tamie Negron is a 24 year old White female, Patient presents with: ED Follow-up HPI Pt of Dr. Tavarez, here for ER f/up - pt went to ER y'day but eloped prior to being seen. Had 2 weeks ago - has bleeding that is 'light'. No cramping. No fever Does not see [facility], last Pap was 3-4 yrs ago. Has [...] 1 tablet by mouth once daily. omega 0-hdq-sgg-fish oil (FISH OIL) 100-160-1,000 mg cap Take [...] to evaluate. Will also refer her to [facility] per pt request though she was encouraged [...] MD This note was partially generated using Departing voice recognition system, and there may be some incorrect words, spellings, and punctuation that were not noted while reviewing the note before saving. documented in this encounter [facility] 10-23-2024 History of Presen t illness Narrative ED Follow-Up Note Provider Action / FYI: na Call completed by: AYESHA Patient seen in ED: In Network ED Contact made with Patient: No, left message. Louise Mcmanus LPN October 23, 2024 8:32 AM documented in this encounter [facility] 02-16-2024 Telephone encounter Note No Show Documentation [...] Chasity Dangelo February 16, 2024 2:44 PM [facility] 02-16-2024 Miscellaneous Notes No Show Documentation Tamie [...] 2024 2:44 PM documented in this encounter [facility] 12-12-2023 Telephone encounter Note Smoking Cessation Navigation Outcome of contact: Left Message Comments: A voicemail has been left for this patient regarding Tobacco Cessation support options. If this patient has any further questions they can email us at or call us at [phone]. [employer]/Smoking Cessation Navigator: Pernell Ruiz [facility] ED [facility] 12-12-2023 Miscellaneous Notes Smoking Cessation Navigation Outcome of contact: Left Message Comments: A voicemail has been left for this patient regarding Tobacco Cessation support options. If this patient has any further questions they can email us at or call us at [phone]. [employer]/Smoking Cessation Navigator: [facility]ernell [facility] documented in this encounter [facility] 12-07-2023 History of Presen t illness Narrative [...] PAST SURGICAL HISTORY Procedure Laterality Date NONE [facility] POST CARE 01/14/2023 Social History Tobacco Use Smoking status: Every Day Packs/day: 0.25 Years: 5.00 Additional pack years: 0.00 Total pack years: 1.25 Types: Cigarettes Smokeless tobacco: Never Vaping Use Vaping Use: Never used Substance Use Topics Alcohol use: No Drug use: Not Currently Types: Marijuana, Amphetamines Comment: daily [facility] FAMILY HISTORY Problem Relation Age of Onset [...] Pressure Monitor 1 Each twice daily. omega 7-miw-sfe-fish oil (FISH OIL) 100-160-1,000 mg cap Take [...] 2023 1:30 PM documented in this encounter [facility] 12-07-2023 Instructions Ratna Tavarez MD - 12/07/2023 [...] taking a cigarette break. Don't carry a obstetrician/gynecologist, matches or cigarettes. Go to places that [...] back on smoking or switching to a obstetrician/gynecologist brand. Stage four: Action - The person [...] quitting. Don't give up! For more information [employer] [phone] [employer] [phone] [employer] [phone] References: COPD Foundation. Understanding COPD. Living With COPD. Quitting Smoking Accessed 06/23/2014. [employer]. Stop Smoking Accessed 06/23/2014. Copyright 0999-2552 The [facility]. All rights reserved This information is provided by the [facility] and is not intended to replace the medical advice of your doctor or health care provider. Please consult your health care provider for advice about a specific medical condition. For additional health information, please contact the Center for Consumer Health Information at the [facility] or toll-free extension [phone]. If you prefer, you may visit [email or web address] or [email or web address]. This document was last reviewed on: 2017 index#[id number] documented in this encounter [facility] 03-22-2023 History of Presen t illness Narrative 03/22/23 2:49 PM SUBJECTIVE: 22 year old year old female presents today for her exam. Patient's was complicated by gestational HTN and PPH. Jordan Reeder [[id number]] Delivery Information: Delivery Date: 01/14/23 Delivery type: [...] (Patient not taking: Reported on 03/22/2023) omega 7-lju-ccj-fish oil (FISH OIL) 100-160-1,000 mg cap Take [...] Oli Contreras DO documented in this encounter [facility] 01-17-2023 History of Past i llness Narrative [...] 01/16/2023 Overview: - Patient transferred care to [facility] from at 38 weeks - Records viewable in [facility] under Care Everywhere - All routine [...] of this encounter (statuses as of 01/19/2023) [facility]05-30-2023 History of Past illness Narrative* Problem Noted [...] 01/16/2023 Overview: - Patient transferred care to [facility] from at 38 weeks - Records viewable in [facility] under Care Everywhere - All routine [...] of this encounter (statuses as of 03/22/2023) [facility] History of Past illness Narrative* Problem Noted [...] 01/16/2023 Overview: - Patient transferred care to [facility] from at 38 weeks - Records viewable in [facility] under Care Everywhere - All routine [...] of this encounter (statuses as of 12/08/2023) [facility]05-30-2023 Miscellaneous Notes* Telephone Encounter - Izzy Barron APRN.CNM - 01/17/2023 9:18 AM EDT Needs one week BP check for GHTN. JS left VM to call office Me [facility] History of Past illness Narrative* Problem Noted Date Resolved Date Substance use 01/16/2023 01/17/2023 Overview: - history of methamphetamine use - care management consult pending Encounter for induction of labor 01/14/2023 01/15/2023 Overview: - GBS positive, PCN - Pitocin per protocol - Epidural prn - AROM prn with care elsewhere 01/16/2023 Overview: - Patient transferred care to [facility] from at 38 weeks - Records viewable in [facility] under Care Everywhere - All routine [...] of this encounter (statuses as of 01/17/2023) [facility]05-27-2023 NoteHNO ID: [id number] Author: Thea Wright APRN.DIRECTOR OF USER EXPERIENCE Service: Neonatology Author Type: Nurse Practitioner Type: Progress Notes Filed: 01/14/2023 4:39 PM Note Text: NICU BLOW OFF WORKER Brief Note: I was asked by nursing [...] is currently in a treatment program with [facility]. Mother was very tearful throughout our conversation. The father asked if she could still breastfeed, and I stated that we will allow neither breastmilk nor . Father was adamant that she be able to provide breastmilk. I stated that we would not use her breastmilk during this hospitalization, and that they could follow with their industrial management teacher regarding her breastmilk use as long as she remains in a treatment program (pending clean toxicology reports). Parents stated that they do not have a industrial management teacher; I told them that we will help them identify a industrial management teacher prior to discharge. Mother remained tearful; parents stated that I answered all of their questions. Thea Wright APRN.[facility]05-27-2023 NoteHNO ID: [id number] Author: Avery Cisse APRN.POWER LINE INSTALLER AND REPAIRER Service: Anesthesiology Author Type: Nurse End Packer Type: Anesthesia Procedure Notes Filed: 01/14/2023 11:44 AM Note Text: ANESTHESIOLOGY PROCEDURE NOTE Airway General Information Procedure Start Time/Medication Administration: 01/14/2023 11:22 AM Procedure End Time: 01/14/2023 11:23 AM Patient location during procedure: OR Timeout Performed Pre-procedure: timeout performed Consent Obtained: Yes Patient identity confirmed: arm band and patient Staffing POWER LINE INSTALLER AND REPAIRER: Avery Cisse APRN.POWER LINE INSTALLER AND REPAIRER Performed by: HAYDEE Indications and Patient Condition [...] clear of any aspirate SIGNATURE: Avery Cisse APRN.POWER LINE INSTALLER AND REPAIRER PATIENT NAME: Tamie Negron DATE: January 14, 2023 TIME: 11:41 AM [id number] NoteHNO ID: [id number] Author: Paula Adler MD Service: Obstetrics Author [...] further details. Paula Adler MD Pager # [phone] 01/14/2023 11:42 [facility]23 NoteHNO ID: [id number] Author: Oli Contreras, Service: ? Author Type: [...] Multivitamin with Folic acid: Yes Occupation: None Jain or heritage: No Would refuse blood transfusion if medically necessary: No No weight on file for this encounter. Patient BMI over 30? No Marital Status: Partner: Name: Sandra Age: 51 Occupation: [employer] Gender: male PAST MEDICAL HISTORY Diagnosis Date [...] - Currently scheduled to start Rehab with [facility] - T today reactive - Will plan to continue with weekly testing 4. Maternal gonorrhea in third trimester - ICD9: 647.13, ICD10: O98.213 - s/p Treatment - Recent negative MINNIE 5. Tobacco use disorder - ICD9: 305.1, ICD10: F17.200 - Cessation encouraged. - Physiologic and physical aspects of tobacco addiction as well as strategies for quitting were discussed. Oli Osiel [facility]01-26-2023 NoteAccession #: [id number] Date of Procedure: 09/15/2022 Pathologist: [facility], Cytology Date Reported: 09/21/2022 Date Received: 09/15/2022 Submitting Physician: TAYE SANDRA MD FINAL CYTOLOGICAL INTERPRETATION A. THINPREP PAP CERVICAL: Specimen Adequacy: SATISFACTORY FOR EVALUATION. Quality Indicator: Absence of endocervical/transformation zone component. Quality Indicator: Partially obscuring inflammation. General Categorization: NEGATIVE FOR INTRAEPITHELIAL LESION OR MALIGNANCY. Descriptive Interpretation: SHIFT IN VAGINAL KHANG SUGGESTIVE OF BACTERIAL VAGINOSIS. QC review performed at [facility], [address] [place] [address] This specimen has been analyzed by the [employer] Imaging System ([employer] an automated imaging and review system, which assists the laboratory in evaluating cells on ThinPrep Pap tests. Following automated imaging, selected burris from every slide were reviewed by a distillery miller and/or pathologist. Electronically Signed Out By [facility], Cytology//CRR/LSM By the signature on this report, the individual or group listed as making the Final Interpretation/Diagnosis certifies that they have reviewed this case. [place] [address] Educational Note: Cervical cytology is a screening [...] Source of Specimen A: THINPREP PAP CERVICAL [facility] Department of Pathology [address] [place], [place] [address]COWeisman Children's Rehabilitation HospitalComment on above:Performed By: #### HCGQU #### [address] [id number] History of Present illness Narrative* Patient is [...] COVID symptoms, [place] swab and [place] [facility]. Given information about COVID. Pt was also [...] discharge * Impression: * [facility]: Evaluation note* Diagnosis Intravenous drug use during in third trimester [facility] Diagnosis Encounter for routine follow-up- Primary Routine follow-up Encounter for initial prescription of contraceptive pills General counseling for prescription of oral contraceptives documented in this encounter [facility] note* Diagnosis Encounter to establish care- Primary Other reasons for seeking consultation Encounter for immunization Need for other specified prophylactic vaccination against single bacterial disease Tobacco abuse Tobacco use disorder documented in this encounter [facility] note* Diagnosis Vagina bleeding- Primary Other specified noninflammatory disorder of vagina Status post elective Unspecified legally induced without mention of complication Constipation, unspecified constipation type documented in this encounter [facility] noteNo assessment information availableWBucyrus Community Hospital Work Phone: Reason for referral (narrative)No reason for referral information availableWBucyrus Community Hospital Work Phone: Summary Purpose Family History No Family History Records FoundNo Family History Records FoundNo Family History Records FoundNo Family History Records FoundNo Family History Records FoundNo Family History Records FoundNo Family History Records FoundNo Family History Records Found Advance Directives No Advanced Directives Records FoundDocuments on File Type Date Recorded Patient Brand Strategist Expl anation ACP-Advance Directive ACP-Power of Night Coordinator Chief Complaint Patient received 500mg Ceftriaxone IM to left gluteal region. Ceftriaxone reconstituted per directions with lidocaine. Expiration: Jun 2024 Lot: [id number] Health Concerns Problem Noted Date [facility] Processing Supervisor Problem Noted Date Diagnosed Date [facility] Supervisor 01/17/2023 Reason for Referral Specialty Diagnoses / Procedures Referred By Toro harris Referred To Contact Diagnoses Tobacco abuse Procedures CONSULT TO SMOKING CESSATION Mike Cochran DO [address] [facility] [address] [place] [address] Referral ID Status Reason Start Date Expiration Date V isits Requested Visits Authorized [id number] Ref Not Required 12/07/2023 02/05/2024 1 1 Additional Source Comments INFORMATION SOURCE (unrecogn ized section and content) DATE CREATED AUTHOR 02/08/2018 [facility] DATE CREATED AUTHOR AUTHOR'S ORGANIZ ATION 11/15/2022 [facility] DATE CREATED AUTHOR AUTHOR'S ORGANIZ ATION 12/09/2022 [facility] DATE CREATED AUTHOR AUTHOR'S ORGANIZ ATION 01/14/2023 [facility] DATE CREATED AUTHOR AUTHOR'S ORGANIZ ATION 01/29/2023 [facility] DATE CREATED AUTHOR AUTHOR'S ORGANIZ ATION 12/13/2023 [facility] DATE CREATED AUTHOR AUTHOR'S ORGANIZ ATION 01/29/2025 [facility] DATE CREATED AUTHOR AUTHOR'S ORGANIZ ATION 05/12/2025 [facility] Source Comments (unrecognize d section and content) In the event this informatio n is protected by the Federal Confidentiality of Alcohol and Drug Abuse Patient Records regulations: The Federal rules restrict any use of the information to criminally investigate or prosecute any alcohol or drug abuse patient.[facility] the event this information is protected by the Federal Confidentiality of Alcohol and Drug Abuse Patient Records regulations: The Federal rules restrict any use of the information to criminally investigate or prosecute any alcohol or drug abuse patient.[facility] Center[facility] the event this information is protected by the Federal Confidentiality of Alcohol and Drug Abuse Patient Records regulations: The Federal rules restrict any use of the information to criminally investigate or prosecute any alcohol or drug abuse patient.[facility] Center[facility] the event this information is protected by the Federal Confidentiality of Alcohol and Drug Abuse Patient Records regulations: The Federal rules restrict any use of the information to criminally investigate or prosecute any alcohol or drug abuse patient.[facility] Center[facility] the event this information is protected by the Federal Confidentiality of Alcohol and Drug Abuse Patient Records regulations: The Federal rules restrict any use of the information to criminally investigate or prosecute any alcohol or drug abuse patient.[facility] Center[facility] the event this information is protected by the Federal Confidentiality of Alcohol and Drug Abuse Patient Records regulations: The Federal rules restrict any use of the information to criminally investigate or prosecute any alcohol or drug abuse patient.[facility] Center[facility] the event this information is protected by the Federal Confidentiality of Alcohol and Drug Abuse Patient Records regulations: The Federal rules restrict any use of the information to criminally investigate or prosecute any alcohol or drug abuse patient.[facility] CenterIn the event this information is protected by the Federal Confidentiality of Alcohol and Drug Abuse Patient Records regulations: The Federal rules restrict any use of the information to criminally investigate or prosecute any alcohol or drug abuse patient.[facility] CenterIn the event this information is protected by the Federal Confidentiality of Alcohol and Drug Abuse Patient Records regulations: The Federal rules restrict any use of the information to criminally investigate or prosecute any alcohol or drug abuse patient.[facility] Center[facility] the event this information is protected by the Federal Confidentiality of Alcohol and Drug Abuse Patient Records regulations: The Federal rules restrict any use of the information to criminally investigate or prosecute any alcohol or drug abuse patient.[facility] Reason for Visit (unrecogniz ed section and content) Reason Comments Abstract New OB transfer Reason Comments Appointment Needs ONE week BP [place]. JS left message to call office Reason Comments Us Procedure Specialty Diagnoses / Procedures Referred By Contac t Referred To Contact [facility] Diagnoses Intravenous drug use during in third trimester Procedures BIOPHYSICAL PROFILE US [facility]I BIOPHYSICAL PROFILE NON-STRESS TESTING Oli Contreras DO [address] [place] [address] [facility] [address] [place] [address] Referral ID Status Reason Start Date Expiration Date V isits Requested Visits Authorized [id number] Closed Auto-Generate d Referral 01/05/2023 01/05/2024 10 1 Reason Comments Early Reason Comments Establish Care Reason Comments Smoking Cessation Reason Comments No Show No Show #1 Reason Onset Date Comments ED Outreach 10/23/2024 [facility] 10/22/2024 Reason Comments Referral Information Gynecology Reason Comments ED Follow-up Reason Comments Addiction Problem Requesting detox. En dorses methamphetamine, ETOH, and marijuana all last used 01/26/25. Care Teams (unrecognized sec tion and content) Oil Expeller Relationship Specialty Start Date End Date Mike Cochran DO [address] [id number] PCP - General Internal Medicine 12/07/23 Ratna Tavarez MD 1 [place], [place] [id number] PCP Resident 12/07/23 Oil Expeller Relationship Specialty Start Date End Date Mike Cochran DO [address] [place] [address] [id number] PCP - General Internal Medicine 12/07/23 Ratna Tavarez MD 1 [place], [place] [id number] PCP Resident 12/07/23 Oil Expeller Relationship Specialty Start Date End Date Mike Cochran DO [address] [id number] PCP - General Internal Medicine 12/07/23 Ratna Tavarez MD 1 [place], [place] [id number] PCP Resident 12/07/23 Oil Expeller Relationship Specialty Start Date End Date Mike Cochran DO [address] [id number] PCP - General Internal Medicine 12/07/23 Ratna Tavarez MD 1 [place], [place] [id number] PCP Resident 12/07/23 Oil Expeller Relationship Specialty Start Date End Date Mike Cochran DO [address] [id number] PCP - General Internal Medicine 12/07/23 Ratna Tavarez MD 1 [place], [place] [id number] PCP Resident 12/07/23 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 [employer] provides no warranty or guarantee of the accuracy or completeness of information in this document.
[2025-06-09] MEDS: hydrOXYzine PAM 25 MG Capsule 50 MG PO (22:43)
[2025-06-10 02:30] VITALS: BP 108/56; PULSE 68; RESP 16; TEMP 36.6; O2SAT 95
[2025-06-10 06:00] VITALS: BP 107/69; PULSE 71; RESP 16; TEMP 36.6; O2SAT 99
[2025-06-10] MEDS: Thiamine Hydrochloride 100 MG Tablet PO (08:28)
[2025-06-10] MEDS: Nicotine (PBKC) 14 MG Patch TD (08:28)
[2025-06-10 09:00] LABS: Magnesium 1.9 mg/dL (1.5-2.2)
[2025-06-10 10:00] VITALS: BP 101/53; PULSE 74; RESP 14; TEMP 36.7; O2SAT 98
--- NOTE | 2025-06-10 10:21 | CASEMGMT ---
Social Work- Pt is unable to meet due to extreme lethargy and lack of ability to engage or even awaken fully. Hospitalist reports pt state should improve tomorrow; SW to attempt at that time. JORGE A Navarrete
--- NOTE | 2025-06-10 11:07 | PCM.PN.HOSP ---
Reason for Visit Chief Complaint: Alcohol detox Subjective Subjective Saw patient at bedside this morning. Patient was quite somnolent but was able to open her eyes for me. She was otherwise falling asleep for any questions that I was asking her. She was protecting her airway without issue. Objective Data Objective Data Vital Signs: Vital Signs Temp Pulse Resp BP Pulse Ox O2 Del Method 98 F 71 16 107/69 99 Room Air 06/10/25 06:00 06/10/25 06:00 06/10/25 06:00 06/10/25 06:00 06/10/25 06:00 06/10/25 06:00 Oxygen Delivery Method Room Air Weight: 60.7 kg Body Mass Index (BMI) 25.2 Intake & Output: Intake and Output for Last 24 Hours 06/08/25 06/09/25 06/10/25 23:59 23:59 23:59 Intake Total 1000 / 1000 Balance 1000 / 1000 Lab / Micro Data 06/09/25 18:43 06/09/25 18:43 Labs: Laboratory Results - last 24 hr 06/09/25 18:10: Urine Test Negative, Urine Opiates Screen NEGATIVE, U Buprenorphine Qual NEGATIVE, Ur Oxycodone Screen NEGATIVE, Urine Methadone Screen NEGATIVE, Urine Fentanyl Screen NEGATIVE, Ur Barbiturates Screen NEGATIVE, Ur Phencyclidine Scrn NEGATIVE, Ur Amphetamines Screen NEGATIVE, U Benzodiazepines Scrn NEGATIVE, Urine Cocaine Screen NEGATIVE, U Cannabinoids Screen PRESUMPTIVE POSITIVE 06/09/25 18:43: WBC 14.2 H, RBC 3.68 L, Hgb 11.5 L, Hct 34.0 L, MCV 92.4, MCH 31.3, MCHC 33.8, RDW Std Deviation 39.4, RDW Coeff of Pamela 11.6, Plt Count 317, MPV 8.8, Immature Gran % (Auto) 0.600, Neut % (Auto) 73.2 H, Lymph % (Auto) 20.0, [place] % (Auto) 4.7, Eos % (Auto) 1.1, Baso % (Auto) 0.4, Absolute Neuts (auto) 10.4 H, Absolute Lymphs (auto) 2.84, Nucleated RBC % 0, Sodium 140, Potassium 3.5, Chloride 104, Carbon Dioxide 23.8, Anion Gap 12, BUN 17, Creatinine 0.83, Estim Creat Clear Calc 85.03, Est GFR (MDRD) Non-Af 99, BUN/Creatinine Ratio 20.0, Glucose 95, Calcium 9.5, Phosphorus 3.7, Magnesium 1.9, Total Bilirubin 0.15, AST 40 H, ALT 46 H, Alkaline Phosphatase 79, Total Protein 6.7, Albumin 4.3, Globulin 2.4, Albumin/Globulin Ratio 1.8, Ethyl Alcohol < 10.1 Physical Exam Const no apparent distress and average body habitus Constitutional Narrative: Younger female, somnolent appearing, opening eyes to voice but otherwise falling asleep with questioning and not answer any questions for me, protecting airway without issue. General Appearance: cooperative Orientation / Consciousness: lethargic HEENT normocephalic, head/scalp atraumatic, hearing grossly normal bilaterally, nasal mucous membranes and turbinates normal and moist oral mucous membranes Eyes PERRL, EOMs intact bilaterally and conjunctivae normal Neck full ROM Chest inspection of chest normal Resp normal respiratory effort, normal air movement, no use of accessory muscles and clear to auscultation bilaterally Cardio regular rate, regular rhythm, no murmurs and peripheral pulses 2+ throughout GI normal to inspection, nondistended, normoactive bowel sounds, soft to palpation, non-tender and non-distended Back/Spine normal ROM Extremity normal to inspection, full ROM and no pedal edema Skin no rashes or lesions noted Assessment & Plan Assessment/Plan (1) Alcohol abuse: PLAN: Plan Patient is a 25-year-old female who presented to [facility] ED on 06/09/2025 for alcohol detox. 1. Alcohol use disorder ? Case management following. Patient reported intermittent alcohol use with no evidence of withdrawal and came to the hospital for monitoring for withdrawal prior to being able to go back to living in [address]. Patient was started on an Ativan taper on admission and received 3 doses of 2 mg of Ativan by the morning of hospital day 2. She was significantly somnolent due to this. Ativan discontinued. Will continue CIWA protocol for now. If patient's mentation is improved tomorrow, should be ready for discharge to [facility]. Appreciate case management assistance. 2. Polysubstance abuse ? Case management following as above. Patient with history of polysubstance abuse, has most recently been living in [facility] for rehab and has been clean from methamphetamines. She notably is living there in order to rehabilitate herself to regain custody of her child. Still uses marijuana occasionally. UDS positive for only marijuana. Encouraged cessation from marijuana on discharge. 3. Tobacco dependence ? Nicotine patch in place per patient request. Discussed cessation of discharge. 4. Anxiety/depression ? Continue home fluoxetine. DVT prophylaxis: Low risk, ambulate CODE STATUS: Full code, verified Expected disposition: Back to [facility] housing, 1 to 2 days Total clinical time spent by myself addressing the patient's medical issues, reviewing all the data, and collaborating with patient's care team: 38 minutes. Charges/Coding Visit Charges Inpatient E&M: 94868 Subs Hosp L2
--- NOTE | 2025-06-10 11:30 | ADDICTION ---
Attempted to meet with pt to complete RAMP assessments. Pt was unable to be awake long enough to complete any assessments. Will try again tomorrow. clinician was informed that she will return to [facility] housing post discharged.
[2025-06-10 14:23] VITALS: BP 97/57; PULSE 84; RESP 15; TEMP 36.8; O2SAT 99
[2025-06-10] MEDS: 0.9% Saline Lock 10 ML Syringe IV (20:00)
[2025-06-10 20:13] VITALS: BP 112/60; PULSE 86; RESP 16; TEMP 36.6; O2SAT 97
[2025-06-11 03:12] VITALS: BP 105/47; PULSE 75; RESP 16; TEMP 36.7; O2SAT 97
[2025-06-11] MEDS: Thiamine Hydrochloride 100 MG Tablet PO (08:49)
[2025-06-11] MEDS: Nicotine (PBKC) 14 MG Patch TD (08:50)
--- NOTE | 2025-06-11 10:04 | NURSING ---
in with primary RN as patient seen on a cell phone. pt admited to having broke into her totes and getting her phone. discussed RAMP agreement and not having access to personal belongings including phone. discussed that she had discussed discharge plans with RAMP navigator including calling her patient case coordinator after discharge. pt verbalized she wishes to leave AMA as she does not want to give up access to her belongings. aware AMA paper signed with primary RN. Hospitalist Dr. Garg notified.
--- NOTE | 2025-06-11 10:14 | NURSING ---
Charge nurse alerts this nurse Pt has her phone. Per contract on admission pt has been non compliant. Pt states she has to make calls to her bilingual patient support caseworker. She admitted to breaking in her tote and taking her phone. Pt is re-informed as to rules of program and signs AMA papers.
--- NOTE | 2025-06-11 12:19 | DS.PCM_ITS ---
Providers Date of Admission: 06/09/25 Date of Discharge: 06/11/25 Primary Care Physician: Myrna Phillips [facility], [employer]AR[employer] SUPERVISOR-[employer] Reason For Visit: ALCOHOL DETOXIFICATION Diagnosis Discharge Diagnosis (1) Alcohol abuse: Status: Acute Code(s): F10.10 - Alcohol abuse, uncomplicated Medications at Discharge Home Medications fluoxetine 10 mg capsule 10 mg PO DAILY 06/09/25 hydroxyzine HCl 25 mg tablet 25 mg PO 4X/DAY PRN anxiety 06/09/25 Hospital Course Operations None Procedures None Summary of Care Provided Minutes Spent on Discharge: 36 Hospital Course: Patient is a 25-year-old female who presented to [facility] ED on 06/09/2025 for alcohol detox. Hospital course as noted below. Patient left AGAINST MEDICAL ADVICE on the morning of 06/11. 1. Alcohol use disorder ? Case management followed. Patient reported intermittent alcohol use with no evidence of withdrawal and came to the hospital for monitoring for withdrawal prior to being able to go back to living in [facility]. Patient was started on an Ativan taper on admission and received 3 doses of 2 mg of Ativan by the morning of hospital day 2. She was significantly somnolent due to this. Ativan discontinued. Patient's mentation improved by the morning of 06/11, but patient then unfortunately opted to leave AGAINST MEDICAL ADVICE. 2. Polysubstance abuse ? Case management followed as above. Patient with history of polysubstance abuse, has most recently been living in [facility] for rehab and has been clean from methamphetamines. She notably is living there in order to rehabilitate herself to regain custody of her child. Still uses marijuana occasionally. UDS positive for only marijuana. Encouraged cessation from marijuana on discharge. 3. Tobacco dependence ? Nicotine patch in place during hospitalization per patient request. Discussed cessation of discharge. 4. Anxiety/depression ? Continue home fluoxetine. Total clinical time spent by myself addressing the patient's medical issues, reviewing all the data, and collaborating with patient's care team: 36 minutes. Physical Exam Const alert, no apparent distress and average body habitus Constitutional Narrative: Younger female, alert and somewhat agitated appearing, answering questions appropriately. General Appearance: cooperative HEENT normocephalic, head/scalp atraumatic, hearing grossly normal bilaterally, nasal mucous membranes and turbinates normal and moist oral mucous membranes Eyes PERRL, EOMs intact bilaterally and conjunctivae normal Neck full ROM Chest inspection of chest normal Resp normal respiratory effort, normal air movement, no use of accessory muscles and clear to auscultation bilaterally Cardio regular rate, regular rhythm, no murmurs and peripheral pulses 2+ throughout GI normal to inspection, nondistended, normoactive bowel sounds, soft to palpation, non-tender and non-distended Back/Spine normal ROM Extremity normal to inspection, full ROM and no pedal edema Skin no rashes or lesions noted Psych Mood & Affect: anxious Weight / BMI Weight Weight: 60.7 kg Body Mass Index (BMI) 25.2 ABG / Lab / Microbiology Data 06/09/25 18:43 06/09/25 18:43 D/C Instructions DC O2, CPAP, BIPAP Needs Home O2 Discharge instructions: No Meaningful Use Info Meaningful Use Meaningful Use Diagnoses (Choose all that apply): None applicable Discharge Plan Admission Admit Date/Time: 06/09/25 21:23 Primary Reason for Your Visit: Alcohol detox Attending Provider: Devin Garg Primary Care Provider: Myrna Phillips Consulting Providers: Jeramy Hobson Discharge Orders/Prescriptions Prescriptions: Continued hydroxyzine HCl 25 mg tablet 25 mg PO 4X/DAY PRN (Reason: anxiety) fluoxetine 10 mg capsule 10 mg PO DAILY Referrals / Follow Up: Myrna Phillips, [employer] SUPERVISOR-C [Primary Care Provider, Family Practice] Disposition Disposition (needs filled in before D/C Order can be placed): Against Medical Advice Charges/Coding Visit Charges Inpatient E&M: 70696 Disch Hosp >30min
--- NOTE | 2025-06-11 12:19 | PCM.DC ---
Discharge Instructions DC O2, CPAP, BIPAP needs Home O2 Discharge instructions: No Dressing / Incision Discharge Activity: No Restrictions Follow Up Care Test Results: Test results from this visit will be discussed in further detail at your follow-up appointment, if applicable. Discharge Plan Admission Admit Date/Time: 06/09/25 21:23 Primary Reason for Your Visit: Alcohol detox Attending Provider: Devin Garg Primary Care Provider: Myrna Phillips Consulting Providers: Jeramy Hobson Discharge Orders/Prescriptions Prescriptions: Continued hydroxyzine HCl 25 mg tablet 25 mg PO 4X/DAY PRN (Reason: anxiety) fluoxetine 10 mg capsule 10 mg PO DAILY Referrals / Follow Up: Myrna Phillips, UNDERCOVER AGENT-C [Primary Care Provider, Family Practice] Disposition Disposition (needs filled in before D/C Order can be placed): Against Medical Advice
--- NOTE | 2025-06-11 14:35 | CHAPLAIN ---
Type of Pastoral Visit ___ Initial Visit ___ Follow-up Visit ___ On-call Visit ___ General Patient Visit ___ Spiritual Assessment ___ Family Conference ___ Bereavement ___ Rapid Response ___ Code Blue ___ Other (describe below) Pastoral Care Referral From ___ Patient ___ Family ___ Nurse ___ Physician ___ Pressroom Foreman ___ Campus Recruiting Coordinator ___ Other (describe below) Sacrament/Intervention ___ Active listening ___ Anointing ___ Caodaism ___ Bereavement ___ Communion ___ Annalisa exploration ___ ___ Life review ___ Prayer ___ Reconciliation ___ Sacrament of Sick ___ Supportive presence ___ Wedding ___ Other (describe below) Pastoral Comments patient left hospital before being seen by this rawhide trimmer
== END 2025-06-11 11:03 | disposition left against medical advice (07) ==
LOC: ED 18:53 → MS3 06-10 07:09
PROVIDERS: Admitting Provider Family Medicine; Emergency Provider Surgery; PCP Nurse Practitioner Family; Visit Provider Hospitalist
DX: F10.10 Alcohol abuse, uncomplicated (principal); D64.9 Anemia, unspecified; F12.10 Cannabis abuse, uncomplicated; F32.A Depression, unspecified; F17.210 Nicotine dependence, cigarettes, uncomplicated; F41.9 Anxiety disorder, unspecified; Z79.899 Other long term (current) drug therapy; Y90.0 Blood alcohol level of less than 20 mg/100 ml; F17.290 Nicotine dependence, other tobacco product, uncomplicated
CPT/HCPCS: 80053; 80307; 81025; 82077; 83735; 84100; 85025; 96360; 96361; 97802; 99221; 99285; A4216; G0378